=== PATIENT | female | born 1955 | race Caucasian/White ===

== ENCOUNTER 2017-08-17 20:54 | Emergency (ER) | payer MEDICARE, OTHER, MEDICAID, SELFPAY | END 2017-08-17 22:43 | disposition home or self-care (01) | PROVIDERS: Emergency Provider Emergency Medicine; Family Provider Family Medicine; PCP Family Medicine; Visit Provider Emergency Medicine | DX: S93.601A Unspecified sprain of right foot, initial encounter (principal); W19.XXXA Unspecified fall, initial encounter | CPT/HCPCS: 73562; 73610; 73630; 99283 ==

== ENCOUNTER 2017-11-15 23:34 | Emergency (ER) | payer MEDICARE, OTHER, MEDICAID, SELFPAY ==
[2017-11-15 23:44] VITALS: BP 146/70; PULSE 78; RESP 19; TEMP 36.7; O2SAT 98; BMI 44.6
[2017-11-15] MEDS: ALBUTEROL/IPRATROPIUM 3 ML AMPUL INH (23:50)
--- NOTE | 2017-11-15 23:50 | DI.RAD.S_ITS ---
PROCEDURE: XR CHEST 2V INDICATIONS: Shortness of breath, cough TECHNIQUE: 2 views of the chest were acquired. COMPARISON: [facility], , CHEST 1 VIEW, 04/04/2013, 10:54. FINDINGS: Surgical changes and devices: Nerve stimulator leads projecting to the lower thoracic spine. Lower cervical spine fusion. Lungs and pleura: No pleural effusions or pneumothorax. Lungs are clear. Mediastinum: Mediastinal contours are normal. Heart size is normal. Bones and chest wall: No suspicious bony abnormalities. Soft tissues appear unremarkable. IMPRESSION: No acute cardiopulmonary disease. Dictated by: Lee Schwartz M.D. on 11/16/2017 at 7:46 Approved by: Lee Schwartz M.D. on 11/16/2017 at 7:48
[2017-11-15 23:51] VITALS: PULSE 81; RESP 14; O2SAT 98
--- NOTE | 2017-11-15 23:54 | ED.SOB ---
HPI - SOB/Dyspnea General Chief Complaint: Shortness of Breath/Dyspnea Stated Complaint: TROUBLE BREATHING,COUGH SORE THROAT,FEVER Time Seen by Provider: 11/15/17 23:35 Source: patient and family Mode of arrival: ambulatory Limitations: no limitations History of Present Illness A 61-year-old female with history of asthma presents to the emergency department with a chief complaint of gradually worsening shortness of breath with wheeze over the course of the day. She has had a cough but denies any productive sputum. She did have a fever this morning of 102.6. She denies runny nose or sore throat. She has no chest pain, abdominal pain or vomiting. She denies any dysuria, frequency or urgency nor change of bowel habits. She has been using her albuterol at home MD Complaint: shortness of breath and cough Onset (ago): hour(s) Context: recent illness Severity: mild Consistency/Duration: constant Relieving factors: nothing Exacerbating factors: nothing Known history of: asthma Associated symptoms: denies other symptoms, fever and cough Related Data Home Medications Medication Instructions Recorded Confirmed levothyroxine 137 mcg PO Q DAY #0 01/03/11 montelukast [Singulair] 10 mg PO QDAY #0 01/03/11 albuterol sulfate [Proventil HFA] 2 puff INH Q6HP PRN #0 03/15/11 oxycodone-acetaminophen 1 tab PO QID #0 03/15/11 CHOLECALCIFEROL (VITAMIN D3) 2,000 iu PO Q DAY #0 03/29/11 (Vitamin D) atorvastatin [Lipitor] 20 mg PO QDAY #0 04/22/17 cyanocobalamin (vitamin B-12) 1,000 mcg PO QDAY #0 04/22/17 levocetirizine 5 mg PO QDAY #0 04/22/17 magnesium oxide 400 mg PO QDAY #0 04/22/17 multivitamin [Multiple Vitamins] 1 tab PO QDAY #0 04/22/17 omega 0-stp-vjb-fish oil [Fish Oil] 1,000 mg PO QDAY #0 04/22/17 quetiapine [Seroquel XR] 300 mg PO QDAY #0 04/22/17 desvenlafaxine succinate [Pristiq] #0 05/06/17 eszopiclone [Lunesta] #0 05/06/17 Previous Rx's Medication Instructions Recorded ketorolac 60 mg IM PRN PRN #4 syr 08/29/17 topiramate 100 mg tablet 100 mg PO .COMPLEX #60 tab 09/25/17 topiramate 200 mg tablet 200 mg PO BID #60 tab 09/25/17 topiramate [Topamax] 200 mg PO BID #60 tab 09/25/17 albuterol sulfate 2.5 mg INHALATION Q4-6H PRN #180 ml 11/16/17 prednisone See Label Instructions .ROUTE 11/16/17 .COMPLEX #30 tab Allergies Allergy/AdvReac Type Severity Reaction Status Date / Time butorphanol [BUTORPHANOL] Allergy Severe CARDIAC Verified 11/15/17 23:44 ARREST doxycycline [DOXYCYCLINE] Allergy Severe SEVERE Verified 11/15/17 23:44 RASH, SICK TO STOMACH hydromorphone [From DILAUDID] Allergy Severe SEVERE Verified 11/15/17 23:44 RASH, NAUSEA morphine [MORPHINE] Allergy Severe 'BRINGS ON Verified 11/15/17 23:44 MY BLACKOUTS' pregabalin [PREGABALIN] Allergy Severe MOOD SWINGS Verified 11/15/17 23:44 sumatriptan [SUMATRIPTAN] Allergy Severe MAKES Verified 11/15/17 23:44 MIGRAINES WORSE vortioxetine Allergy Severe SUICIDAL Verified 11/15/17 23:44 [From TRINTELLIX] adhesive tape [ADHESIVE TAPE] Allergy Intermediate RASH FROM Verified 11/15/17 23:44 ALL TAPES; TEGEDERM IS LESS SEVERE simvastatin [SIMVASTATIN] Allergy Intermediate RASH, SICK Verified 11/15/17 23:44 TO STOMACH amoxicillin [AMOXICILLIN] Allergy Unknown CHILDHOOD Verified 11/15/17 23:44 aspirin [ASPIRIN] Allergy Unknown Verified 11/15/17 23:44 erythromycin base Allergy Unknown UNKNOWN - Verified 11/15/17 23:44 [ERYTHROMYCIN BASE] CHILDHOOD Penicillins [PENICILLINS] Allergy Unknown UNKNOWN - Verified 11/15/17 23:44 CHILDHOOD codeine [CODEINE] AdvReac Severe GI UPSET, Verified 11/15/17 23:44 SEVERE HEADACHES vilazodone [From VIIBRYD] AdvReac Severe SEVERE Verified 11/15/17 23:44 DEPRESSION NSAIDS (Non-Steroidal AdvReac Intermediate upset Verified 11/15/17 23:44 Anti-Inflamma stomach [NSAIDS (NON-STEROIDAL ANTI-INFLAMMA] solifenacin [From VESICARE] AdvReac Mild UTIs Verified 11/15/17 23:44 Sulfa (Sulfonamide AdvReac Mild NAUSEA Verified 11/15/17 23:44 Antibiotics) [SULFA (SULFONAMIDE ANTIBIOTICS)] trimethoprim [TRIMETHOPRIM] AdvReac Mild NAUSEA Verified 11/15/17 23:44 Review of Systems Review of Systems All systems reviewed & are unremarkable except as noted in HPI and below Constitutional Denies chills, Denies fever(s), Denies lethargy and Denies weakness Eyes Denies change in vision, Denies eye discharge, Denies irritation and Denies loss of vision ENT Ears, Nose, Mouth, and Throat: Denies change in voice, Denies neck pain and Denies sore throat Cardiovascular Denies chest pain, Denies irregular heart rhythm, Denies lightheadedness, Denies palpitations, Reports dyspnea, Denies dyspnea on exertion and Denies orthopnea Respiratory Reports cough, Reports dyspnea, Denies dyspnea on exertion and Reports wheezing Gastrointestinal Gastrointestinal: Denies abdominal pain, Denies change in bowel habits, Denies diarrhea, Denies nausea and Denies vomiting Genitourinary Denies hematuria, Denies flank pain, Denies urinary incontinence and Denies urinary urgency Musculoskeletal Denies neck pain Integumentary/Breasts Denies pruritus, Denies erythema, Denies rash and Denies wounds Neurologic Denies confusion, Denies loss of vision and Denies weakness Psychiatric Denies anxiety, Denies confusion, Denies depression, Denies homicidal ideation and Denies suicidal ideation Endocrine Denies palpitations Hematologic/Lymphatic Denies easy bruising Allergic/Immunologic Reports wheezing PFSH Social History Smoking Status: Former smoker Exam Narrative Exam Narrative: Pleasant 61F in minimal distress Initial Vital Signs Initial Vital Signs: Vital Signs Temperature 98.0 F 11/15/17 23:44 Pulse Rate 78 11/15/17 23:44 Respiratory Rate 19 11/15/17 23:44 Blood Pressure 146/70 H 11/15/17 23:44 Pulse Oximetry 98 11/15/17 23:44 Const General: cooperative and well developed Nutritional Appearance: well nourished Orientation: alert, awake, oriented x3 and not confused HENMT Head: normocephalic and atraumatic Ears: external ears normal and TM's normal bilaterally Nose: external nose normal and No nasal discharge Face and sinus: sinuses nontender, face symmetric, no sinus tenderness and No dry mucous membranes Mouth: oral mucosae normal and moist mucous membranes Teeth and gingiva: dentition normal Throat: tonsils normal and uvula midline Eyes General: appearance normal, both eyes and all related structures Eyelids: eyelids normal Conjunctivae: conjunctivae normal Sclera: sclerae normal Pupils: PERRL EOM: EOM intact bilaterally Resp Effort & Inspection: normal respiratory effort, able to speak in complete sentences, no respiratory distress and no use of accessory muscles Auscultation: clear to auscultation bilaterally, no rales, no rhonchi and wheezes Cardio Rate: regular rate Rhythm: regular rhythm Heart Sounds: no click, no gallops, no murmurs and no rubs Pulses: normal peripheral pulses GI Inspection: non-distended Palpation: soft, no hepatosplenomegaly, No guarding, No pulsatile mass and No tender Auscultation: normal bowel sounds Back/Spine/Pelvis Back: No CVA tenderness Cervical Spine: cervical ROM normal and No pain with cervical ROM Thoracic/Lumbar Spine: thoracic and lumbar spine normal to inspection Neuro General: alert, oriented x3, gait normal and no focal motor deficits Speech: speech normal Course Orders Ordered: ED Orders 11/15/17 23:46 Consult to Respiratory Therapy Evaluate & Treat B Type Natriuretic Peptide Stat Basic Metabolic Panel Stat Complete Blood Count AUTO DIFF Stat Lactate (Lactic Acid) Stat Magnesium Stat Procalcitonin Stat Troponin with CK Cardiac Panel Stat EKG-12 Lead Stat 11/15/17 23:50 XR chest 2V Stat Discontinued Medications Albuterol/Ipratropium (Duoneb) 3 ml INH NOW ONE Stop: 11/15/17 23:49 Last Admin: 11/15/17 23:50 Dose: 3 ml Albuterol/Ipratropium (Duoneb) 3 ml INH NOW ONE Stop: 11/15/17 23:46 Last Admin: 11/16/17 00:01 Dose: 3 ml Methylprednisolone (Solu-Medrol 125 Mg Vial) 125 mg IV NOW ONE Stop: 11/15/17 23:46 Last Admin: 11/16/17 00:16 Dose: 125 mg Reevaluation(s) Reevaluation #1: Patient feeling much better after above-stated therapies Vital Signs - 8 hr 11/15/17 23:44 11/15/17 23:51 11/16/17 00:02 Temperature 98.0 F Pulse Rate 78 81 81 Respiratory Rate 19 14 Blood Pressure 146/70 H Blood Pressure [Left Arm] Pulse Oximetry 98 98 98 11/16/17 01:45 Temperature Pulse Rate 72 Respiratory Rate 20 Blood Pressure Blood Pressure [Left Arm] 136/70 H Pulse Oximetry 97 MDM - SOB/Dyspnea Differential Diagnosis Likely acute exacerbation of chronic obstructive airways disease, community acquired pneumonia, asthma with exacerbation and pulmonary embolism Medical Records Attestation: I reviewed the patient's medical records. Lab Data Attestation: I reviewed the patient's lab results. Result diagrams: 11/16/17 00:01 11/16/17 00:01 Lab Results 11/16/17 11/16/17 11/16/17 Range/Units 00:01 00:01 00:01 WBC 9.0 (4.5-11.0) X10^3/uL RBC 4.55 (4.0-5.2) X10^6/uL Hgb 13.8 (12.0-16.0) g/dL Hct 41.1 (36-46) % MCV 90.5 (80-100) fL MCH 30.3 (26-34) PG MCHC 33.5 (30-36) % RDW 14.2 (11.6-14.8) % Plt Count 230 (150-400) X10^3/uL Neut % (Auto) 62.9 (50-75) % Lymph % (Auto) 27.5 (25-40) % [place] % (Auto) 5.6 (3-14) % Eos % (Auto) 3.1 (2-4) % Baso % (Auto) 0.9 (0-2) % Neut # (Auto) 5700 (2355-4528) /uL Sodium 143 (137-145) mmol/L Potassium 3.6 (3.4-5.1) mmol/L Chloride 108 H (98-107) mmol/L Carbon Dioxide 24 (22-32) mmol/L BUN 10 (7-17) mg/dL Creatinine 0.80 (0.52-1.04) mg/dL Estimated GFR > 60.0 (>60) mL/min BUN/Creatinine Ratio 12.5 (6-22) Glucose 113 H (80-110) mg/dL Lactate (0.7-2.1) mmol/L Calcium 8.9 (8.4-10.2) mg/dL Magnesium 1.8 (1.6-2.3) mg/dL Total Creatine Kinase 27 L (30-135) U/L Troponin I < 0.012 (0.01-0.034) ng/mL B-Natriuretic Peptide < 100.0 (<100) Procalcitonin < 0.05 (<0.5) ng/mL 11/16/17 Range/Units 00:01 WBC (4.5-11.0) X10^3/uL RBC (4.0-5.2) X10^6/uL Hgb (12.0-16.0) g/dL Hct (36-46) % MCV (80-100) fL MCH (26-34) PG MCHC (30-36) % RDW (11.6-14.8) % Plt Count (150-400) X10^3/uL Neut % (Auto) (50-75) % Lymph % (Auto) (25-40) % [place] % (Auto) (3-14) % Eos % (Auto) (2-4) % Baso % (Auto) (0-2) % Neut # (Auto) (7457-7913) /uL Sodium (137-145) mmol/L Potassium (3.4-5.1) mmol/L Chloride (98-107) mmol/L Carbon Dioxide (22-32) mmol/L BUN (7-17) mg/dL Creatinine (0.52-1.04) mg/dL Estimated GFR (>60) mL/min BUN/Creatinine Ratio (6-22) Glucose (80-110) mg/dL Lactate 1.1 (0.7-2.1) mmol/L Calcium (8.4-10.2) mg/dL Magnesium (1.6-2.3) mg/dL Total Creatine Kinase (30-135) U/L Troponin I (0.01-0.034) ng/mL B-Natriuretic Peptide (<100) Procalcitonin (<0.5) ng/mL Imaging Data Chest x-ray: Radiologist's impression: No acute process MDM Narrative Medical decision making narrative: Patient shows tremendous improvement with steroids and bronchodilators. Patient has no white count, ongoing fever, or pneumonia on x-ray. She has had no sputum production. No antibiotics at this time. Discharge Plan Departure Patient Disposition: Home, Self-Care Clinical Impression: Asthma exacerbation Instructions: Asthma -- Adult Activity Restrictions/Additional Instructions: There is no evidence of an emergent or life threatening illness at this time, but follow up with your doctor in 1-2 days is recommended nonetheless to continue to rule out serious underlying causes of your symptoms. Please call the office for an appointment. Please return to the Emergency Department for any worsening or persistent symptoms. Please take medications as directed. Your prescriptions have been electronically transmitted to [facility] at your request Prescriptions: New prednisone 10 mg tablet See Label Instructions .ROUTE .COMPLEX Qty: 30 RF: 0 albuterol sulfate 2.5 mg /3 mL (0.083 %) solution for nebulization 2.5 mg INHALATION Q4-6H PRN (Reason: shortness of breath or wheezing) Qty: 180 RF: 0 No Action montelukast [Singulair] 10 MG tablet 10 mg PO QDAY Qty: 0 RF: 0 levothyroxine 137 MCG tablet 137 mcg PO Q DAY Qty: 0 RF: 0 albuterol sulfate [Proventil HFA] 90 MCG/PUFF HFA aerosol inhaler 2 puff INH Q6HP PRNQty: 0 RF: 0 oxycodone-acetaminophen 10 MG/325 MG tablet 1 tab PO QID Qty: 0 RF: 0 CHOLECALCIFEROL (VITAMIN D3) (Vitamin D) 2,000 iu PO Q DAY Qty: 0 RF: 0 quetiapine [Seroquel XR] 300 MG tablet extended release 24 hr 300 mg PO QDAY Qty: 0 RF: 0 atorvastatin [Lipitor] 20 MG tablet 20 mg PO QDAY Qty: 0 RF: 0 levocetirizine 5 MG tablet 5 mg PO QDAY Qty: 0 RF: 0 multivitamin [Multiple Vitamins] 1 EACH tablet 1 tab PO QDAY Qty: 0 RF: 0 cyanocobalamin (vitamin B-12) 1,000 MCG tablet extended release 1,000 mcg PO QDAY Qty: 0 RF: 0 magnesium oxide 400 MG tablet 400 mg PO QDAY Qty: 0 RF: 0 omega 9-oev-hbm-fish oil [Fish Oil] 1,000 MG capsule 1,000 mg PO QDAY Qty: 0 RF: 0 eszopiclone [Lunesta] 1 MG tablet Qty: 0 RF: 0 desvenlafaxine succinate [Pristiq] 50 mg Tablet Extended Release 24 Hr Qty: 0 RF: 0 ketorolac 60 MG/2 ML syringe 60 mg IM PRN PRNQty: 4 RF: 11 topiramate [Topamax] 200 mg tablet 200 mg PO BID Qty: 60 RF: 0 topiramate 200 mg tablet 200 mg PO BID Qty: 60 RF: 11 topiramate 100 mg tablet 100 mg PO .COMPLEX Qty: 60 RF: 11 Referrals: Aashish Aponte MD [Primary Care Provider] -
[2017-11-16] MEDS: ALBUTEROL/IPRATROPIUM 3 ML AMPUL INH (00:01)
[2017-11-16 00:02] VITALS: PULSE 81; O2SAT 98
[2017-11-16 00:16] LABS: Add Manual Diff / Slide Review NO; Basophils Percent Auto 0.9 % (0-2); Eosinophils Percent Auto 3.1 % (2-4); Hematocrit 41.1 % (36-46); Hemoglobin 13.8 g/dL (12.0-16.0); Lymphocytes Percent Auto 27.5 % (25-40); Mean Corpuscular HGB Conc 33.5 % (30-36); Mean Corpuscular Hemoglobin 30.3 PG (26-34); Mean Corpuscular Volume 90.5 fL (80-100); Monocytes Percent Auto 5.6 % (3-14); Neutrophils Absolute Auto 5700 /uL (3000-5900); Neutrophils Percent Auto 62.9 % (50-75); Platelet Count 230 X10^3/uL (150-400); Red Blood Cell Count 4.55 X10^6/uL (4.0-5.2); Red Cell Distribution Width 14.2 % (11.6-14.8)
[2017-11-16] MEDS: methylPREDNISolone 125 MG/2 ML VIAL IV (00:16)
[2017-11-16 00:21] LABS: Lactate (Lactic Acid) 1.1 mmol/L (0.7-2.1)
[2017-11-16 00:23] LABS: BUN Creatinine Ratio 12.5 (6-22); Blood Urea Nitrogen 10 mg/dL (7-17); Calcium 8.9 mg/dL (8.4-10.2); Carbon Dioxide 24 mmol/L (22-32); Chloride 108 mmol/L (98-107); Creatine Kinase 27 U/L (30-135); Estimated Glomerular Filt Rate > 60.0 mL/min (>60); Glucose 113 mg/dL (80-110); HEMOLYSIS < 15 (0-50); Magnesium 1.8 mg/dL (1.6-2.3); Potassium 3.6 mmol/L (3.4-5.1); Sodium 143 mmol/L (137-145)
[2017-11-16 00:36] LABS: Troponin I < 0.012 ng/mL (0.01-0.034)
[2017-11-16 00:40] LABS: Procalcitonin < 0.05 ng/mL (<0.5)
[2017-11-16 00:47] LABS: B Type Natriuretic Peptide < 100.0 (<100)
[2017-11-16 01:45] VITALS: BP 136/70; PULSE 72; RESP 20; O2SAT 97
[2017-11-16 02:16] VITALS: BP 130/73; PULSE 90; RESP 18; O2SAT 95
== END 2017-11-16 02:17 | disposition home or self-care (01) ==
PROVIDERS: Emergency Provider Emergency Medicine; Family Provider Family Medicine; PCP Family Medicine
DX: J45.901 Unspecified asthma with (acute) exacerbation (principal)
CPT/HCPCS: 36415; 36591; 71046; 80048; 82550; 82553; 83605; 83735; 83880; 84145; 84484; 85025; 87040; 93005; 94150; 94640; 96374; 99283; 99285; J2930

== ENCOUNTER 2018-01-09 22:45 | Emergency (ER) | payer MEDICARE, OTHER, MEDICAID, SELFPAY ==
[2018-01-09 22:55] VITALS: BP 134/87; PULSE 63; RESP 18; TEMP 36.5; O2SAT 98
--- NOTE | 2018-01-09 23:03 | PC.NURSE ---
Pt reports has a black out yesterday and found herself on the floor and has a L knee pain. 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 Pain in medial aspect of L knee. No obvious deformity noted. No hx of L knee injury. Has been using ice pack for comfort and hurts to bear wt. Pt has been taking Oxycodone 10/325 QID and has been helping with pain.
--- NOTE | 2018-01-09 23:05 | DI.RAD.S_ITS ---
PROCEDURE: XR KNEE LT 3V INDICATIONS: Left medial aspect pain, fall-found herself on the floor TECHNIQUE: 3 views of the knee were acquired. COMPARISON: [facility], , KNEE 3V LEFT, 05/20/2015, 22:38. FINDINGS: Bones: No fractures or dislocations. No suspicious bony lesions. Mild to moderate tricompartmental osteoarthritis. Soft tissues: No joint effusion. No suspicious soft tissue calcifications. IMPRESSION: No fracture. No acute osseous lesion. If symptoms and/or clinical suspicion for pathology persists, further assessment with repeat radiographs (7-10 days) or advanced imaging (e.g. CT, MRI or bone scan) may be helpful. Dictated by: June Montes De Oca MD, PhD on 01/10/2018 at 8:01 Approved by: June Montes De Oca MD, PhD on 01/10/2018 at 8:01
--- NOTE | 2018-01-09 23:55 | ED_ITS ---
HPI - Extremity Injury (Lower) General Chief Complaint: Extremity Injury, Lower Stated Complaint: LEFT KNEE PAIN Time Seen by Provider: 01/09/18 23:21 Source: patient Mode of arrival: ambulatory Limitations: no limitations History of Present Illness HPI Narrative: The patient states that she has had periods of ?blacking out? for a long time. Yesterday, she had an episode, and does not remember the fall , but states that she somehow injured her left knee in the process. She states that she got her chiropractor to come over and adjust her knee, which seemed to help for a little bit, but then the knee started to hurt again. She states the pain is mainly in the medial side and she has noticed a little bit of ?puffiness ?. The patient denies any other injuries. She states she has no underlying problems with this knee. MD complaint: knee injury Onset (ago): hour(s) (About 30) Injury: Left: knee Type of Injury: unknown Place: home Severity: moderate Relieving factors: nothing Exacerbating factors: weight bearing (Patient states she is able to move the knee to nearly full range of motion, but that bearing weight hurts.) Context: fall (See above.) Associated symptoms: able to partially bear weight Other symptoms: loss of consciousness (Chronic problem) Treatments prior to arrival: other (Patient states she took 2 of her Percocet, which haven't touched it.) Related Data Home Medications Medication Instructions Recorded Confirmed levothyroxine 137 mcg PO Q DAY #0 01/03/11 11/19/17 montelukast [Singulair] 10 mg PO QDAY #0 01/03/11 11/19/17 albuterol sulfate [Proventil HFA] 2 puff INH Q6HP PRN #0 03/15/11 11/19/17 oxycodone-acetaminophen 1 tab PO QID #0 03/15/11 11/19/17 CHOLECALCIFEROL (VITAMIN D3) 2,000 iu PO Q DAY #0 03/29/11 11/19/17 (Vitamin D) atorvastatin [Lipitor] 20 mg PO QDAY #0 04/22/17 11/19/17 cyanocobalamin (vitamin B-12) 1,000 mcg PO QDAY #0 04/22/17 11/19/17 levocetirizine 5 mg PO QDAY #0 04/22/17 11/19/17 magnesium oxide 400 mg PO QDAY #0 04/22/17 11/19/17 multivitamin [Multiple Vitamins] 1 tab PO QDAY #0 04/22/17 11/19/17 omega 0-gvg-ejk-fish oil [Fish Oil] 1,000 mg PO QDAY #0 04/22/17 11/19/17 quetiapine [Seroquel XR] 300 mg PO QDAY #0 04/22/17 11/19/17 desvenlafaxine succinate [Pristiq] #0 05/06/17 11/19/17 eszopiclone [Lunesta] #0 05/06/17 11/19/17 Previous Rx's Medication Instructions Recorded ketorolac 60 mg IM PRN PRN #4 syr 08/29/17 albuterol sulfate 2.5 mg INHALATION Q4-6H PRN #180 ml 11/16/17 prednisone See Label Instructions .ROUTE 11/16/17 .COMPLEX #30 tab topiramate 100 mg tablet 100 mg PO .COMPLEX #150 tab 11/19/17 Allergies Allergy/AdvReac Type Severity Reaction Status Date / Time butorphanol [BUTORPHANOL] Allergy Severe CARDIAC Verified 01/09/18 23:01 ARREST doxycycline [DOXYCYCLINE] Allergy Severe SEVERE Verified 01/09/18 23:01 RASH, SICK TO STOMACH hydromorphone [From DILAUDID] Allergy Severe SEVERE Verified 01/09/18 23:01 RASH, NAUSEA morphine [MORPHINE] Allergy Severe 'BRINGS ON Verified 01/09/18 23:01 MY BLACKOUTS' pregabalin [PREGABALIN] Allergy Severe MOOD SWINGS Verified 01/09/18 23:01 sumatriptan [SUMATRIPTAN] Allergy Severe MAKES Verified 01/09/18 23:01 MIGRAINES WORSE vortioxetine Allergy Severe SUICIDAL Verified 01/09/18 23:01 [From TRINTELLIX] adhesive tape [ADHESIVE TAPE] Allergy Intermediate RASH FROM Verified 01/09/18 23:01 ALL TAPES; TEGEDERM IS LESS SEVERE simvastatin [SIMVASTATIN] Allergy Intermediate RASH, SICK Verified 01/09/18 23: 01 TO STOMACH amoxicillin [AMOXICILLIN] Allergy Unknown CHILDHOOD Verified 01/09/18 23:01 aspirin [ASPIRIN] Allergy Unknown Verified 01/09/18 23:01 erythromycin base Allergy Unknown UNKNOWN - Verified 01/09/18 23:01 [ERYTHROMYCIN BASE] CHILDHOOD Penicillins [PENICILLINS] Allergy Unknown UNKNOWN - Verified 01/09/18 23:01 CHILDHOOD codeine [CODEINE] AdvReac Severe GI UPSET, Verified 01/09/18 23:01 SEVERE HEADACHES vilazodone [From VIIBRYD] AdvReac Severe SEVERE Verified 01/09/18 23:01 DEPRESSION NSAIDS (Non-Steroidal AdvReac Intermediate upset Verified 01/09/18 23:01 Anti-Inflamma stomach [NSAIDS (NON-STEROIDAL ANTI-INFLAMMA] solifenacin [From VESICARE] AdvReac Mild UTIs Verified 01/09/18 23:01 Sulfa (Sulfonamide AdvReac Mild NAUSEA Verified 01/09/18 23:01 Antibiotics) [SULFA (SULFONAMIDE ANTIBIOTICS)] trimethoprim [TRIMETHOPRIM] AdvReac Mild NAUSEA Verified 01/09/18 23:01 Review of Systems Review of Systems All systems reviewed & are unremarkable except as noted in HPI and below Constitutional Denies chills, Denies fever(s), Denies lethargy and Denies weakness Eyes Denies change in vision, Denies eye discharge, Denies irritation and Denies loss of vision ENT Ears, Nose, Mouth, and Throat: Denies change in voice, Denies neck pain and Denies sore throat Cardiovascular Denies chest pain, Denies irregular heart rhythm, Denies lightheadedness, Denies palpitations, Denies dyspnea, Denies dyspnea on exertion and Denies orthopnea Respiratory Denies cough, Denies dyspnea, Denies dyspnea on exertion and Denies wheezing Gastrointestinal Gastrointestinal: Denies abdominal pain, Denies change in bowel habits, Denies diarrhea, Denies nausea and Denies vomiting Genitourinary Denies hematuria, Denies flank pain, Denies urinary incontinence and Denies urinary urgency Musculoskeletal Reports joint swelling and Denies neck pain Integumentary/Breasts Denies pruritus, Denies erythema, Denies rash and Denies wounds Neurologic Denies confusion, Denies loss of vision and Denies weakness Psychiatric Denies anxiety, Denies confusion, Denies depression, Denies homicidal ideation and Denies suicidal ideation Endocrine Denies palpitations Hematologic/Lymphatic Denies easy bruising Allergic/Immunologic Denies wheezing [facility] Medical History COPD (chronic obstructive pulmonary disease) (Acute) Hyperlipemia (Acute) Surgical History History of knee replacement procedure of right knee (Acute) Social History Smoking Status: Former smoker Exam Initial Vital Signs Initial Vital Signs: Vital Signs Temperature 97.7 F 01/09/18 22:55 Pulse Rate 63 01/09/18 22:55 Respiratory Rate 18 01/09/18 22:55 Blood Pressure 134/87 H 01/09/18 22:55 Pulse Oximetry 98 01/09/18 22:55 Const General: cooperative and well developed Nutritional Appearance: well nourished Orientation: alert, awake, oriented x3 and not confused HENMT Head: normocephalic and atraumatic Ears: external ears normal Nose: external nose normal and No nasal discharge Face and sinus: sinuses nontender, face symmetric, no sinus tenderness and No dry mucous membranes Mouth: oral mucosae normal and moist mucous membranes Teeth and gingiva: dentition normal Throat: tonsils normal and uvula midline Eyes General: appearance normal, both eyes and all related structures Eyelids: eyelids normal Conjunctivae: conjunctivae normal Sclera: sclerae normal Pupils: PERRL EOM: EOM intact bilaterally Neck Neck: normal visual inspection, trachea midline, No lymphadenopathy, No midline deformity and No JVD Lymphatic: No lymphedema Chest Chest: normal inspection of the chest Resp Effort & Inspection: normal respiratory effort, able to speak in complete sentences, no respiratory distress and no use of accessory muscles Auscultation: clear to auscultation bilaterally, no rales, no rhonchi and no wheezes Cardio Rate: regular rate Rhythm: regular rhythm Heart Sounds: no click, no gallops, no murmurs and no rubs Pulses: normal peripheral pulses GI Inspection: non-distended Palpation: soft, no hepatosplenomegaly, No guarding, No pulsatile mass and No tender Auscultation: normal bowel sounds Back/Spine/Pelvis Back: No CVA tenderness Cervical Spine: cervical ROM normal and No pain with cervical ROM Thoracic/Lumbar Spine: thoracic and lumbar spine normal to inspection Skin General: no rashes or lesions noted, No jaundice and No petechiae Neuro General: alert, oriented x3, gait normal and no focal motor deficits Speech: speech normal Extrem General: full ROM, no clubbing, cyanosis or edema, no pedal edema, no calf tenderness and edema (Mild, left medial knee.) Psych Appearance: well kempt Mental Status: mental status grossly normal Attitude: cooperative Thought Content: normal and suicidality Judgment: judgment good Course Hospital Course: Patient was given a dose of Toradol and sent for an x-ray of her left knee. This was found to be negative. No emergent condition identified. Orders Ordered: Discontinued Medications Ketorolac Tromethamine (Toradol) 60 mg IM NOW ONE Stop: 01/10/18 00:10 Last Admin: 01/10/18 00:22 Dose: 60 mg Vital Signs - 8 hr 01/10/18 01:03 Pulse Rate 81 Respiratory Rate 18 Blood Pressure 118/67 Pulse Oximetry 96 MDM - Extremity Injury (Lower) Medical Records Attestation: I reviewed the patient's medical records. Imaging Data Left knee x-ray series: Attestation: I personally reviewed and interpreted this imaging study as follows: My impression: Negative Radiologist's impression: PROCEDURE: XR KNEE LT 3V INDICATIONS: Left medial aspect pain, fall-found herself on the floor TECHNIQUE: 3 views of the knee were acquired. COMPARISON: [facility], , KNEE 3V LEFT, 05/20/2015, 22:38. FINDINGS: Bones: No fractures or dislocations. No suspicious bony lesions. Mild to moderate tricompartmental osteoarthritis. Soft tissues: No joint effusion. No suspicious soft tissue calcifications. IMPRESSION: No fracture. No acute osseous lesion. If symptoms and/or clinical suspicion for pathology persists, further assessment with repeat radiographs (7-10 days) or advanced imaging (e.g. CT, MRI or bone scan) may be helpful. Dictated by: June Montes De Oca MD, PhD on 01/10/2018 at 8:01 Approved by: June Montes De Oca MD, PhD on 01/10/2018 at 8:01 Discharge Plan Departure Patient Disposition: Home Clinical Impression: Left knee injury Discharge Date/Time: 01/10/18 00:43 Interventions: ED Discharge Assessment Last Done: 01/10/18 01:03 Instructions: DI for Knee Sprain Activity Restrictions/Additional Instructions: Your x-ray series looks good. Prescriptions: No Action montelukast [Singulair] 10 MG tablet 10 mg PO QDAY Qty: 0 RF: 0 levothyroxine 137 MCG tablet 137 mcg PO Q DAY Qty: 0 RF: 0 albuterol sulfate [Proventil HFA] 90 MCG/PUFF HFA aerosol inhaler 2 puff INH Q6HP PRNQty: 0 RF: 0 oxycodone-acetaminophen 10 MG/325 MG tablet 1 tab PO QID Qty: 0 RF: 0 CHOLECALCIFEROL (VITAMIN D3) (Vitamin D) 2,000 iu PO Q DAY Qty: 0 RF: 0 quetiapine [Seroquel XR] 300 MG tablet extended release 24 hr 300 mg PO QDAY Qty: 0 RF: 0 atorvastatin [Lipitor] 20 MG tablet 20 mg PO QDAY Qty: 0 RF: 0 levocetirizine 5 MG tablet 5 mg PO QDAY Qty: 0 RF: 0 multivitamin [Multiple Vitamins] 1 EACH tablet 1 tab PO QDAY Qty: 0 RF: 0 cyanocobalamin (vitamin B-12) 1,000 MCG tablet extended release 1,000 mcg PO QDAY Qty: 0 RF: 0 magnesium oxide 400 MG tablet 400 mg PO QDAY Qty: 0 RF: 0 omega 6-fvx-boi-fish oil [Fish Oil] 1,000 MG capsule 1,000 mg PO QDAY Qty: 0 RF: 0 eszopiclone [Lunesta] 1 MG tablet Qty: 0 RF: 0 desvenlafaxine succinate [Pristiq] 50 mg Tablet Extended Release 24 Hr Qty: 0 RF: 0 ketorolac 60 MG/2 ML syringe 60 mg IM PRN PRNQty: 4 RF: 11 prednisone 10 mg tablet See Label Instructions .ROUTE .COMPLEX Qty: 30 RF: 0 albuterol sulfate 2.5 mg /3 mL (0.083 %) solution for nebulization 2.5 mg INHALATION Q4-6H PRN (Reason: shortness of breath or wheezing) Qty: 180 RF: 0 topiramate 100 mg tablet 100 mg PO .COMPLEX Qty: 150 RF: 11 Referrals: Aashish Aponte MD [Primary Care Provider] - (Please follow up in 2 weeks if there is no improvement in symptoms.)
[2018-01-10] MEDS: KETOROLAC 60 MG/2 ML VIAL IM (00:22)
[2018-01-10 01:03] VITALS: BP 118/67; PULSE 81; RESP 18; O2SAT 96
== END 2018-01-10 00:43 | disposition home or self-care (01) ==
PROVIDERS: Emergency Provider Emergency Medicine; Family Provider Family Medicine; PCP Family Medicine
DX: S89.92XA Unspecified injury of left lower leg, initial encounter (principal); W19.XXXA Unspecified fall, initial encounter
CPT/HCPCS: 73562; 96372; 99282; 99283; J1885

== ENCOUNTER 2018-02-17 00:54 | Emergency (ER) | payer MEDICARE, OTHER, MEDICAID, SELFPAY ==
[2018-02-17 01:04] VITALS: BP 123/80; PULSE 118; RESP 18; TEMP 36.2; O2SAT 98; BMI 43.6
--- NOTE | 2018-02-17 01:07 | DI.RAD.S_ITS ---
PROCEDURE: XR KNEE LT 3V INDICATIONS: L knee pain with popping TECHNIQUE: 3 views of the knee were acquired. COMPARISON: [facility], , XR KNEE LT 3V, 01/09/2018, 22:46. FINDINGS: Bones: No fractures or dislocations. No suspicious bony lesions. The there is moderate tricompartment osteoarthritis. No significant patellar subluxation. Soft tissues: No joint effusion. No suspicious soft tissue calcifications. IMPRESSION: No acute left knee fracture or dislocation. Moderate tricompartmental osteoarthritis. Dictated by: Tyrell Sotelo M.D. on 02/17/2018 at 8:20 Approved by: Tyrell Sotelo M.D. on 02/17/2018 at 8:20
--- NOTE | 2018-02-17 01:18 | ED_ITS ---
HPI - Extremity Injury (Lower) General Chief Complaint: Extremity Injury, Lower Stated Complaint: left knee injured at home today Time Seen by Provider: 02/17/18 01:01 Source: patient Mode of arrival: ambulatory Limitations: no limitations History of Present Illness HPI Narrative: 62-year-old female history of migraines presents with a chief complaint of a left knee injury this evening. She was getting up from a seated position when she felt a pop in her left knee. She states her pain is worse with motion and improves with rest. She states it feels unsteady and unstable while ambulating. She denies other injury. She is otherwise well and free of complaint. She took a few Percocet 10 mg tablets home with minimal relief. She denies any direct trauma MD complaint: knee injury Onset (ago): hour(s) Place: home Severity: moderate Relieving factors: rest Exacerbating factors: weight bearing and movement Context: other Associated symptoms: snap/pop sensation Other symptoms: none Treatments prior to arrival: bandage Related Data Home Medications Medication Instructions Recorded Confirmed levothyroxine 137 mcg PO Q DAY #0 01/03/11 11/19/17 montelukast [Singulair] 10 mg PO QDAY #0 01/03/11 11/19/17 albuterol sulfate [Proventil HFA] 2 puff INH Q6HP PRN #0 03/15/11 11/19/17 oxycodone-acetaminophen 1 tab PO QID #0 03/15/11 11/19/17 CHOLECALCIFEROL (VITAMIN D3) 2,000 iu PO Q DAY #0 03/29/11 11/19/17 (Vitamin D) atorvastatin [Lipitor] 20 mg PO QDAY #0 04/22/17 11/19/17 cyanocobalamin (vitamin B-12) 1,000 mcg PO QDAY #0 04/22/17 11/19/17 levocetirizine 5 mg PO QDAY #0 04/22/17 11/19/17 magnesium oxide 400 mg PO QDAY #0 04/22/17 11/19/17 multivitamin [Multiple Vitamins] 1 tab PO QDAY #0 04/22/17 11/19/17 omega 9-lhf-ofy-fish oil [Fish Oil] 1,000 mg PO QDAY #0 04/22/17 11/19/17 quetiapine [Seroquel XR] 300 mg PO QDAY #0 04/22/17 11/19/17 desvenlafaxine succinate [Pristiq] #0 05/06/17 11/19/17 eszopiclone [Lunesta] #0 05/06/17 11/19/17 Previous Rx's Medication Instructions Recorded ketorolac 60 mg IM PRN PRN #4 syr 08/29/17 albuterol sulfate 2.5 mg INHALATION Q4-6H PRN #180 ml 11/16/17 prednisone See Label Instructions .ROUTE 11/16/17 .COMPLEX #30 tab topiramate 100 mg tablet 100 mg PO .COMPLEX #150 tab 11/19/17 Allergies Allergy/AdvReac Type Severity Reaction Status Date / Time butorphanol [BUTORPHANOL] Allergy Severe CARDIAC Verified 01/09/18 23:01 ARREST doxycycline [DOXYCYCLINE] Allergy Severe SEVERE Verified 01/09/18 23:01 RASH, SICK TO STOMACH hydromorphone [From DILAUDID] Allergy Severe SEVERE Verified 01/09/18 23:01 RASH, NAUSEA morphine [MORPHINE] Allergy Severe 'BRINGS ON Verified 01/09/18 23:01 MY BLACKOUTS' pregabalin [PREGABALIN] Allergy Severe MOOD SWINGS Verified 01/09/18 23:01 sumatriptan [SUMATRIPTAN] Allergy Severe MAKES Verified 01/09/18 23:01 MIGRAINES WORSE vortioxetine Allergy Severe SUICIDAL Verified 01/09/18 23:01 [From TRINTELLIX] adhesive tape [ADHESIVE TAPE] Allergy Intermediate RASH FROM Verified 01/09/18 23:01 ALL TAPES; TEGEDERM IS LESS SEVERE simvastatin [SIMVASTATIN] Allergy Intermediate RASH, SICK Verified 01/09/18 23: 01 TO STOMACH amoxicillin [AMOXICILLIN] Allergy Unknown CHILDHOOD Verified 01/09/18 23:01 aspirin [ASPIRIN] Allergy Unknown Verified 01/09/18 23:01 erythromycin base Allergy Unknown UNKNOWN - Verified 01/09/18 23:01 [ERYTHROMYCIN BASE] CHILDHOOD Penicillins [PENICILLINS] Allergy Unknown UNKNOWN - Verified 01/09/18 23:01 CHILDHOOD codeine [CODEINE] AdvReac Severe GI UPSET, Verified 01/09/18 23:01 SEVERE HEADACHES vilazodone [From VIIBRYD] AdvReac Severe SEVERE Verified 01/09/18 23:01 DEPRESSION NSAIDS (Non-Steroidal AdvReac Intermediate upset Verified 01/09/18 23:01 Anti-Inflamma stomach [NSAIDS (NON-STEROIDAL ANTI-INFLAMMA] solifenacin [From VESICARE] AdvReac Mild UTIs Verified 01/09/18 23:01 Sulfa (Sulfonamide AdvReac Mild NAUSEA Verified 01/09/18 23:01 Antibiotics) [SULFA (SULFONAMIDE ANTIBIOTICS)] trimethoprim [TRIMETHOPRIM] AdvReac Mild NAUSEA Verified 01/09/18 23:01 Review of Systems Review of Systems All systems reviewed & are unremarkable except as noted in HPI and below Constitutional Denies chills, Denies fever(s), Denies lethargy and Denies weakness Eyes Denies change in vision, Denies eye discharge, Denies irritation and Denies loss of vision ENT Ears, Nose, Mouth, and Throat: Denies change in voice, Denies neck pain and Denies sore throat Cardiovascular Denies chest pain, Denies irregular heart rhythm, Denies lightheadedness, Denies palpitations, Denies dyspnea, Denies dyspnea on exertion and Denies orthopnea Respiratory Denies cough, Denies dyspnea, Denies dyspnea on exertion and Denies wheezing Gastrointestinal Gastrointestinal: Denies abdominal pain, Denies change in bowel habits, Denies diarrhea, Denies nausea and Denies vomiting Genitourinary Denies hematuria, Denies flank pain, Denies urinary incontinence and Denies urinary urgency Musculoskeletal Reports limited range of motion and Denies neck pain Integumentary/Breasts Denies pruritus, Denies erythema, Denies rash and Denies wounds Neurologic Denies confusion, Denies loss of vision and Denies weakness Psychiatric Denies anxiety, Denies confusion, Denies depression, Denies homicidal ideation and Denies suicidal ideation Endocrine Denies palpitations Hematologic/Lymphatic Denies easy bruising Allergic/Immunologic Denies wheezing PFSH Medical History COPD (chronic obstructive pulmonary disease) (Acute) Hyperlipemia (Acute) Surgical History History of knee replacement procedure of right knee (Acute) Social History Smoking Status: Former smoker Exam Narrative Exam Narrative: 62-year-old female in pain, clutching her left knee GEN: AOx3 and in mild distress EYES: Pupils are equal, round, and reactive to light and accommodation. Extraoccular muscles are intact bilaterally. There is no subconjunctival hemorrhage or exudate. CHEST: Lungs are clear to auscultation bilaterally and free of wheezes, rales, or rhonchi. Heart rate is regular rhythm, there are no murmurs, clicks, rubs, or gallops. There is no chest wall tenderness. ABD: Abdomen is soft and nontender. There is no guarding or rebound. Bowel sounds are normal in all 4 quadrants. There is no mass or organomegaly. EXT: patient has full but painful range of motion of her left knee. She has tenderness to palpation along the medial joint line without any obvious effusion. This is isolated, closed and neurovascularly intact. There is no obvious ligamentous instability. Stefania's test elicits significant pain at the right medial joint line suggestive of possible meniscal injury SKIN: Warm, pink, and dry. No erythema or rash Initial Vital Signs Initial Vital Signs: Vital Signs Temperature 97.1 F L 02/17/18 01:04 Pulse Rate 118 H 02/17/18 01:04 Respiratory Rate 18 02/17/18 01:04 Blood Pressure 123/80 02/17/18 01:04 Pulse Oximetry 98 02/17/18 01:04 Procedures Orthopedic Splinting/Casting Injury #1: Side: left Lower Extremity Injury Location: knee Lower Extremity Immobilizer: knee immobilizer Course Orders Ordered: ED Orders 02/17/18 01:07 XR knee LT 3V Stat Vital Signs - 8 hr 02/17/18 01:04 Temperature 97.1 F L Pulse Rate 118 H Respiratory Rate 18 Blood Pressure 123/80 Pulse Oximetry 98 MDM - Extremity Injury (Lower) Differential Diagnosis Likely acute internal derangement of knee and fracture of femur Medical Records Attestation: I reviewed the patient's medical records. Lab Data Attestation: I reviewed the patient's lab results. Imaging Data Left knee x-ray series: Attestation: I personally reviewed and interpreted this imaging study as follows: My impression: no acute bony process, unchanged from x-ray January 09 Discharge Plan Departure Patient Disposition: Home Clinical Impression: Left knee injury Instructions: DI for Knee Pain Activity Restrictions/Additional Instructions: *You have been diagnosed with [ left knee pain, suspect meniscal injury] *What to do: *Continue to take medications as directed *Follow up with your primary care provider or orthopedist in 2-3 days, call for an appointment. Let them know you were seen in the Emergency Department and that we ask that you be seen in follow up *Return to ER if you should have any new, worsening or concerning symptoms Prescriptions: No Action montelukast [Singulair] 10 MG tablet 10 mg PO QDAY Qty: 0 RF: 0 levothyroxine 137 MCG tablet 137 mcg PO Q DAY Qty: 0 RF: 0 albuterol sulfate [Proventil HFA] 90 MCG/PUFF HFA aerosol inhaler 2 puff INH Q6HP PRNQty: 0 RF: 0 oxycodone-acetaminophen 10 MG/325 MG tablet 1 tab PO QID Qty: 0 RF: 0 CHOLECALCIFEROL (VITAMIN D3) (Vitamin D) 2,000 iu PO Q DAY Qty: 0 RF: 0 quetiapine [Seroquel XR] 300 MG tablet extended release 24 hr 300 mg PO QDAY Qty: 0 RF: 0 atorvastatin [Lipitor] 20 MG tablet 20 mg PO QDAY Qty: 0 RF: 0 levocetirizine 5 MG tablet 5 mg PO QDAY Qty: 0 RF: 0 multivitamin [Multiple Vitamins] 1 EACH tablet 1 tab PO QDAY Qty: 0 RF: 0 cyanocobalamin (vitamin B-12) 1,000 MCG tablet extended release 1,000 mcg PO QDAY Qty: 0 RF: 0 magnesium oxide 400 MG tablet 400 mg PO QDAY Qty: 0 RF: 0 omega 9-zmu-wkd-fish oil [Fish Oil] 1,000 MG capsule 1,000 mg PO QDAY Qty: 0 RF: 0 eszopiclone [Lunesta] 1 MG tablet Qty: 0 RF: 0 desvenlafaxine succinate [Pristiq] 50 mg Tablet Extended Release 24 Hr Qty: 0 RF: 0 ketorolac 60 MG/2 ML syringe 60 mg IM PRN PRNQty: 4 RF: 11 prednisone 10 mg tablet See Label Instructions .ROUTE .COMPLEX Qty: 30 RF: 0 albuterol sulfate 2.5 mg /3 mL (0.083 %) solution for nebulization 2.5 mg INHALATION Q4-6H PRN (Reason: shortness of breath or wheezing) Qty: 180 RF: 0 topiramate 100 mg tablet 100 mg PO .COMPLEX Qty: 150 RF: 11 Referrals: Aashish Aponte MD [Primary Care Provider] - George Danielle MD [Physician] -
== END 2018-02-17 02:00 | disposition home or self-care (01) ==
PROVIDERS: Emergency Provider Emergency Medicine; Family Provider Family Medicine; PCP Family Medicine
DX: S89.92XA Unspecified injury of left lower leg, initial encounter (principal); X50.9XXA Other and unspecified overexertion or strenuous movements or postures, initial encounter
CPT/HCPCS: 73562; 99283

== ENCOUNTER → 2018-03-26 | Outpatient (CLI) | payer MEDICARE, OTHER, MEDICAID, SELFPAY | PROVIDERS: PCP Family Medicine; Visit Provider Orthopaedic Surgery | DX: M23.92 Unspecified internal derangement of left knee (principal); Z53.9 Procedure and treatment not carried out, unspecified reason ==

== ENCOUNTER 2018-03-29 05:03 | Emergency (ER) | payer MEDICARE, OTHER, MEDICAID, SELFPAY ==
[2018-03-29 05:16] VITALS: BP 122/78; PULSE 97; RESP 18; TEMP 36.6; O2SAT 99; BMI 44.1
--- NOTE | 2018-03-29 05:38 | ED_ITS ---
HPI - Extremity Problem General Chief complaint: Extremity Problem,Nontraumatic Stated complaint: right arm/back pain cant move arm Time Seen by Provider: 03/29/18 05:19 Source: patient Mode of arrival: ambulatory Limitations: no limitations History of Present Illness HPI Narrative: Patient is a 62-year-old female who presents with right shoulder and arm pain ongoing for the last 2 weeks. He denies numbness or tingling or weakness. She says now it is hurting up into her neck and her head. She has been using a heating pad. She is a chronic pain patient she has appointment with her pain specialist delbert [facility] 04/07/2018. She is trying to hold out until then. She has been taking her Percocet without any relief. She has also been taking 2 ibuprofen every 4 hr also without any relief. Her last dose was at 9:00 p.m.. She has no chest pain no shortness of breath no headache. It hurts every time she moves it and now tries to turn her neck. His MD Complaint: extremity pain Onset (ago): week(s) (2) Pain Consistency: constant Location: right Quality: stabbing and sharp Radiation: distal Relieving factors: nothing Exacerbating factors: nothing Associated symptoms: denies other symptoms Related Data Home Medications Medication Instructions Recorded Confirmed levothyroxine 137 mcg PO Q DAY #0 01/03/11 11/19/17 montelukast [Singulair] 10 mg PO QDAY #0 01/03/11 11/19/17 albuterol sulfate [Proventil HFA] 2 puff INH Q6HP PRN #0 03/15/11 11/19/17 oxycodone-acetaminophen 1 tab PO QID #0 03/15/11 11/19/17 CHOLECALCIFEROL (VITAMIN D3) 2,000 iu PO Q DAY #0 03/29/11 11/19/17 (Vitamin D) atorvastatin [Lipitor] 20 mg PO QDAY #0 04/22/17 11/19/17 cyanocobalamin (vitamin B-12) 1,000 mcg PO QDAY #0 04/22/17 11/19/17 levocetirizine 5 mg PO QDAY #0 04/22/17 11/19/17 magnesium oxide 400 mg PO QDAY #0 04/22/17 11/19/17 multivitamin [Multiple Vitamins] 1 tab PO QDAY #0 04/22/17 11/19/17 omega 6-qcy-vms-fish oil [Fish Oil] 1,000 mg PO QDAY #0 04/22/17 11/19/17 quetiapine [Seroquel XR] 300 mg PO QDAY #0 04/22/17 11/19/17 desvenlafaxine succinate [Pristiq] #0 05/06/17 11/19/17 eszopiclone [Lunesta] #0 05/06/17 11/19/17 Previous Rx's Medication Instructions Recorded albuterol sulfate 2.5 mg INHALATION Q4-6H PRN #180 ml 11/16/17 prednisone See Label Instructions .ROUTE 11/16/17 .COMPLEX #30 tab topiramate 100 mg tablet 100 mg PO .COMPLEX #150 tab 11/19/17 ketorolac 10 mg tablet 10 mg PO .COMPLEX PRN 5 Days #20 03/13/18 tab diazepam 5 mg PO Q12HR PRN #10 tab 03/29/18 Allergies Allergy/AdvReac Type Severity Reaction Status Date / Time butorphanol [BUTORPHANOL] Allergy Severe CARDIAC Verified 01/09/18 23:01 ARREST doxycycline [DOXYCYCLINE] Allergy Severe SEVERE Verified 01/09/18 23:01 RASH, SICK TO STOMACH hydromorphone [From DILAUDID] Allergy Severe SEVERE Verified 01/09/18 23:01 RASH, NAUSEA morphine [MORPHINE] Allergy Severe 'BRINGS ON Verified 01/09/18 23:01 MY BLACKOUTS' pregabalin [PREGABALIN] Allergy Severe MOOD SWINGS Verified 01/09/18 23:01 sumatriptan [SUMATRIPTAN] Allergy Severe MAKES Verified 01/09/18 23:01 MIGRAINES WORSE vortioxetine Allergy Severe SUICIDAL Verified 01/09/18 23:01 [From TRINTELLIX] adhesive tape [ADHESIVE TAPE] Allergy Intermediate RASH FROM Verified 01/09/18 23:01 ALL TAPES; TEGEDERM IS LESS SEVERE simvastatin [SIMVASTATIN] Allergy Intermediate RASH, SICK Verified 01/09/18 23: 01 TO STOMACH amoxicillin [AMOXICILLIN] Allergy Unknown CHILDHOOD Verified 01/09/18 23:01 aspirin [ASPIRIN] Allergy Unknown Verified 01/09/18 23:01 erythromycin base Allergy Unknown UNKNOWN - Verified 01/09/18 23:01 [ERYTHROMYCIN BASE] CHILDHOOD Penicillins [PENICILLINS] Allergy Unknown UNKNOWN - Verified 01/09/18 23:01 CHILDHOOD codeine [CODEINE] AdvReac Severe GI UPSET, Verified 01/09/18 23:01 SEVERE HEADACHES vilazodone [From VIIBRYD] AdvReac Severe SEVERE Verified 01/09/18 23:01 DEPRESSION NSAIDS (Non-Steroidal AdvReac Intermediate upset Verified 01/09/18 23:01 Anti-Inflamma stomach [NSAIDS (NON-STEROIDAL ANTI-INFLAMMA] solifenacin [From VESICARE] AdvReac Mild UTIs Verified 01/09/18 23:01 Sulfa (Sulfonamide AdvReac Mild NAUSEA Verified 01/09/18 23:01 Antibiotics) [SULFA (SULFONAMIDE ANTIBIOTICS)] trimethoprim [TRIMETHOPRIM] AdvReac Mild NAUSEA Verified 01/09/18 23:01 Review of Systems Review of Systems All systems reviewed & are unremarkable except as noted in HPI and below Constitutional Denies chills, Denies fever(s), Denies lethargy and Denies weakness Cardiovascular Denies chest pain, Denies irregular heart rhythm, Denies lightheadedness, Denies palpitations, Denies dyspnea, Denies dyspnea on exertion and Denies orthopnea Respiratory Denies cough, Denies dyspnea, Denies dyspnea on exertion and Denies wheezing Gastrointestinal Gastrointestinal: Denies abdominal pain, Denies change in bowel habits, Denies diarrhea, Denies nausea and Denies vomiting Genitourinary Denies hematuria, Denies flank pain, Denies urinary incontinence and Denies urinary urgency Musculoskeletal Reports as per HPI Integumentary/Breasts Denies pruritus, Denies erythema, Denies rash and Denies wounds Neurologic Denies weakness Endocrine Denies palpitations Allergic/Immunologic Denies wheezing [facility] Social History Smoking Status: Former smoker Exam Initial Vital Signs Initial Vital Signs: Vital Signs Temperature 97.9 F 03/29/18 05:16 Pulse Rate 97 H 03/29/18 05:16 Respiratory Rate 18 03/29/18 05:16 Blood Pressure 122/78 03/29/18 05:16 Pulse Oximetry 99 03/29/18 05:16 GENERAL: Well-appearing, well-nourished and in no acute distress. HEENT: Head atraumatic,EOMI, pupils reactive, face symmetric, neck is tender in the paraspinal muscles only on the right side and trapezius muscles. No midline tenderness. CARDIOVASCULAR: Regular rate and rhythm without murmurs, rubs or gallops. RESPIRATORY: Breath sounds equal bilaterally, no wheezes rales or rhonchi. ABDOMEN: Soft, nontender. Normoactive bowel sounds all 4 quadrants. No guarding or rebound. EXTREMITIES: Normal range of motion, no clubbing or edema. 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 Pain is increased with movement. Pain is also reproduced in the trapezius and cervical pain. No clavicle step-offs. Sensation intact over the deltoid NEUROLOGICAL: Alert and oriented x4.Normal gait and speech. SKIN: Warm, dry, no laceration, no petechiae, no rashes or lesions. Course Orders Ordered: Discontinued Medications Diazepam (Valium) 5 mg PO NOW ONE Stop: 03/29/18 05:30 Last Admin: 03/29/18 05:41 Dose: 5 mg Ketorolac Tromethamine (Toradol) 30 mg IM NOW ONE Stop: 03/29/18 05:30 Last Admin: 03/29/18 05:41 Dose: 30 mg Vital Signs - 8 hr 03/29/18 05:16 03/29/18 06:20 Temperature 97.9 F Pulse Rate 97 H 96 H Respiratory Rate 18 18 Blood Pressure 122/78 109/67 Pulse Oximetry 99 98 MDM - Extremity (Nontraumatic) MDM Narrative Medical decision making narrative: Patient has some relief with Valium and Toradol. Pain is consistent with muscle spasm worse with movement reproducible with palpation. No injury or fall at this time no indication for imaging. She feels like her pain is subsided enough that she is ready and able to go home. She will specialist as scheduled. Discharge Plan Departure Patient Disposition: Home Clinical Impression: Muscle spasm of right shoulder Discharge Date/Time: 03/29/18 06:28 Interventions: ED Discharge Assessment Last Done: 03/29/18 06:20 Instructions: DI for Muscle Strain Activity Restrictions/Additional Instructions: *You have been diagnosed with muscle spasm *What to do: You are likely experiencing a muscle spasm. Recommend heating pad and increasing movement as tolerated. *Continue to take medications as directed Motrin 600 mg every 6-8 hours if needed for pain Valium 5 mg every 12 hr if needed for muscle spasm-this does cause drowsiness *Follow up with your primary care provider in 2-3 days *Return to ER if you should have increasing weakness, numbness, tingling or any new, worsening or concerning symptoms Prescriptions: New diazepam 5 mg tablet 5 mg PO Q12HR PRN (Reason: muscle spasm) Qty: 10 RF: 0 No Action montelukast [Singulair] 10 MG tablet 10 mg PO QDAY Qty: 0 RF: 0 levothyroxine 137 MCG tablet 137 mcg PO Q DAY Qty: 0 RF: 0 albuterol sulfate [Proventil HFA] 90 MCG/PUFF HFA aerosol inhaler 2 puff INH Q6HP PRNQty: 0 RF: 0 oxycodone-acetaminophen 10 MG/325 MG tablet 1 tab PO QID Qty: 0 RF: 0 CHOLECALCIFEROL (VITAMIN D3) (Vitamin D) 2,000 iu PO Q DAY Qty: 0 RF: 0 quetiapine [Seroquel XR] 300 MG tablet extended release 24 hr 300 mg PO QDAY Qty: 0 RF: 0 atorvastatin [Lipitor] 20 MG tablet 20 mg PO QDAY Qty: 0 RF: 0 levocetirizine 5 MG tablet 5 mg PO QDAY Qty: 0 RF: 0 multivitamin [Multiple Vitamins] 1 EACH tablet 1 tab PO QDAY Qty: 0 RF: 0 cyanocobalamin (vitamin B-12) 1,000 MCG tablet extended release 1,000 mcg PO QDAY Qty: 0 RF: 0 magnesium oxide 400 MG tablet 400 mg PO QDAY Qty: 0 RF: 0 omega 2-jlq-lal-fish oil [Fish Oil] 1,000 MG capsule 1,000 mg PO QDAY Qty: 0 RF: 0 eszopiclone [Lunesta] 1 MG tablet Qty: 0 RF: 0 desvenlafaxine succinate [Pristiq] 50 mg Tablet Extended Release 24 Hr Qty: 0 RF: 0 ketorolac 10 mg tablet 10 mg PO .COMPLEX PRN (Reason: pain) 5 Days Qty: 20 RF: 5 prednisone 10 mg tablet See Label Instructions .ROUTE .COMPLEX Qty: 30 RF: 0 albuterol sulfate 2.5 mg /3 mL (0.083 %) solution for nebulization 2.5 mg INHALATION Q4-6H PRN (Reason: shortness of breath or wheezing) Qty: 180 RF: 0 topiramate 100 mg tablet 100 mg PO .COMPLEX Qty: 150 RF: 11 Referrals: Aashish Aponte MD [Primary Care Provider] -
[2018-03-29] MEDS: KETOROLAC 60 MG/2 ML VIAL 30 MG IM (05:41)
[2018-03-29] MEDS: diazePAM 5 MG TABLET PO (05:41)
[2018-03-29 06:20] VITALS: BP 109/67; PULSE 96; RESP 18; O2SAT 98
== END 2018-03-29 06:28 | disposition home or self-care (01) ==
PROVIDERS: Emergency Provider Emergency Medicine; PCP Family Medicine
DX: M62.838 Other muscle spasm (principal)
CPT/HCPCS: 99282; 99283; J1885

== ENCOUNTER → 2018-04-22 12:53 | Outpatient (CLI) | payer MEDICARE, OTHER, MEDICAID, SELFPAY ==
--- NOTE | 2018-04-22 | DI.RAD.S_ITS ---
PROCEDURE: XR SHOULDER RT MIN 2V INDICATIONS: RT SHOULDER PAIN TECHNIQUE: 3 views of the shoulder were acquired. COMPARISON: [facility], , SHOULDER 1 VIEW LEFT, 12/22/2012, 1:29. FINDINGS: Bones: Mild glenohumeral joint space narrowing is seen. Acromioclavicular joint spaces are well preserved. No fractures or dislocations. No suspicious bony lesions. Visualized ribs appear intact. Anterior fusion hardware in lower cervical spine is seen. Soft tissues: No suspicious soft tissue calcifications. IMPRESSION: Very mild glenohumeral joint osteoarthritis. No fracture or dislocation. Dictated by: Tyrell Sotelo M.D. on 04/22/2018 at 14:46 Approved by: Tyrell Sotelo M.D. on 04/22/2018 at 14:47
== END ==
PROVIDERS: PCP Family Medicine; Visit Provider Acupuncturist
DX: M25.511 Pain in right shoulder (principal); M19.011 Primary osteoarthritis, right shoulder
CPT/HCPCS: 73030

== ENCOUNTER 2018-05-15 17:01 | Emergency (ER) | payer MEDICARE, OTHER, MEDICAID, SELFPAY ==
[2018-05-15 17:04] VITALS: BP 141/75; PULSE 100; RESP 16; TEMP 37; O2SAT 100; BMI 43.4
[2018-05-15] MEDS: diphenhydrAMINE 25 MG TABLET 50 MG PO (18:28)
[2018-05-15] MEDS: predniSONE 20 MG TABLET 40 MG PO (18:29)
--- NOTE | 2018-05-15 18:34 | ED_ITS ---
HPI - Allergic Reaction General Chief complaint: Allergic Reaction Stated complaint: STATES ALLERGIC REACTION TO MEDICATION Time Seen by Provider: 05/15/18 18:18 Source: patient Mode of arrival: ambulatory Limitations: no limitations History of Present Illness HPI narrative: Patient is a 62-year-old female who presents with pruritus all over. She was given medication fentanyl, Versed, propofol and Benadryl today for a procedure of moving her pain stimulator. She started itching all over. No tongue swelling no lip swelling no difficulty breathing. She says her throat itches but she is having no trouble swallowing or breathing. No other history of allergic reaction. MD complaint: allergic reaction Related Data Home Medications Medication Instructions Recorded Confirmed levothyroxine 137 mcg PO DAILY #0 01/03/11 05/15/18 montelukast [Singulair] 10 mg PO DAILY #0 01/03/11 05/15/18 albuterol sulfate [Proventil HFA] 2 puff INH Q6HP PRN #0 03/15/11 11/19/17 oxycodone-acetaminophen 1 tab PO QID #0 03/15/11 05/15/18 CHOLECALCIFEROL (VITAMIN D3) 2,000 iu PO Q DAY #0 03/29/11 11/19/17 (Vitamin D) cyanocobalamin (vitamin B-12) 1,000 mcg PO QDAY #0 04/22/17 11/19/17 levocetirizine 5 mg PO DAILY #0 04/22/17 05/15/18 magnesium oxide 400 mg PO QDAY #0 04/22/17 11/19/17 multivitamin [Multiple Vitamins] 1 tab PO QDAY #0 04/22/17 11/19/17 omega 9-cfb-sou-fish oil [Fish Oil] 1,000 mg PO QDAY #0 04/22/17 11/19/17 eszopiclone [Lunesta] #0 05/06/17 11/19/17 metformin 500 mg tablet 500 mg PO BID 04/09/18 05/15/18 desvenlafaxine succinate 50 mg PO DAILY 05/15/18 05/15/18 mirabegron [Myrbetriq] 05/15/18 omeprazole 05/15/18 quetiapine 300 mg PO DAILY 05/15/18 05/15/18 Previous Rx's Medication Instructions Recorded albuterol sulfate 2.5 mg INHALATION Q4-6H PRN #180 ml 11/16/17 topiramate 100 mg tablet 100 mg PO .COMPLEX #150 tab 11/19/17 diazepam 5 mg PO Q12HR PRN #10 tab 03/29/18 fremanezumab-vfrm 225 mg/1.5 mL 225 mg SUBCUT QMONTH #1.5 ml 04/09/18 subcutaneous syringe ketorolac 60 mg/2 mL intramuscular 60 mg IM .COMPLEX #8 ml 04/09/18 cartridge Allergies Allergy/AdvReac Type Severity Reaction Status Date / Time butorphanol [BUTORPHANOL] Allergy Severe CARDIAC Verified 04/09/18 08:19 ARREST doxycycline [DOXYCYCLINE] Allergy Severe SEVERE Verified 04/09/18 08:19 RASH, SICK TO STOMACH hydromorphone [From DILAUDID] Allergy Severe SEVERE Verified 04/09/18 08:19 RASH, NAUSEA morphine [MORPHINE] Allergy Severe 'BRINGS ON Verified 04/09/18 08:19 MY BLACKOUTS' pregabalin [PREGABALIN] Allergy Severe MOOD SWINGS Verified 04/09/18 08:19 sumatriptan [SUMATRIPTAN] Allergy Severe MAKES Verified 04/09/18 08:19 MIGRAINES WORSE vortioxetine Allergy Severe SUICIDAL Verified 04/09/18 08:19 [From TRINTELLIX] adhesive tape [ADHESIVE TAPE] Allergy Intermediate RASH FROM Verified 04/09/18 08:19 ALL TAPES; TEGEDERM IS LESS SEVERE simvastatin [SIMVASTATIN] Allergy Intermediate RASH, SICK Verified 04/09/18 08: 19 TO STOMACH amoxicillin [AMOXICILLIN] Allergy Unknown CHILDHOOD Verified 04/09/18 08:19 aspirin [ASPIRIN] Allergy Unknown Verified 04/09/18 08:19 erythromycin base Allergy Unknown UNKNOWN - Verified 04/09/18 08:19 [ERYTHROMYCIN BASE] CHILDHOOD Penicillins [PENICILLINS] Allergy Unknown UNKNOWN - Verified 04/09/18 08:19 CHILDHOOD codeine [CODEINE] AdvReac Severe GI UPSET, Verified 04/09/18 08:19 SEVERE HEADACHES vilazodone [From VIIBRYD] AdvReac Severe SEVERE Verified 04/09/18 08:19 DEPRESSION NSAIDS (Non-Steroidal AdvReac Intermediate upset Verified 04/09/18 08:19 Anti-Inflamma stomach [NSAIDS (NON-STEROIDAL ANTI-INFLAMMA] solifenacin [From VESICARE] AdvReac Mild UTIs Verified 04/09/18 08:19 Sulfa (Sulfonamide AdvReac Mild NAUSEA Verified 04/09/18 08:19 Antibiotics) [SULFA (SULFONAMIDE ANTIBIOTICS)] trimethoprim [TRIMETHOPRIM] AdvReac Mild NAUSEA Verified 04/09/18 08:19 Review of Systems Review of Systems All systems reviewed & are unremarkable except as noted in HPI and below Constitutional Denies chills, Denies fever(s), Denies lethargy and Denies weakness Cardiovascular Denies chest pain, Denies irregular heart rhythm, Denies lightheadedness, Denies palpitations, Denies dyspnea, Denies dyspnea on exertion and Denies orthopnea Respiratory Denies cough, Denies dyspnea, Denies dyspnea on exertion and Denies wheezing Gastrointestinal Gastrointestinal: Denies abdominal pain, Denies change in bowel habits, Denies diarrhea, Denies nausea and Denies vomiting Musculoskeletal Denies back pain, Denies muscle weakness, Denies numbness and Denies tingling Integumentary/Breasts Reports as per HPI, Reports pruritus, Reports erythema and Reports rash Neurologic Denies numbness, Denies tingling and Denies weakness Endocrine Denies palpitations Allergic/Immunologic Denies wheezing PFSH Medical History Anxiety (Acute) Bipolar 1 disorder (Acute) COPD (chronic obstructive pulmonary disease) (Acute) Conversion disorder (Acute) Depression (Acute) Hyperlipemia (Acute) Surgical History History of knee replacement procedure of right knee (Acute) Social History Smoking Status: Former smoker Exam Initial Vital Signs Initial Vital Signs: Vital Signs Temperature 98.6 F 05/15/18 17:04 Pulse Rate 100 H 05/15/18 17:04 Respiratory Rate 16 05/15/18 17:04 Blood Pressure 141/75 H 05/15/18 17:04 Pulse Oximetry 100 05/15/18 17:04 GENERAL: Well-appearing, well-nourished and in no acute distress. HEENT: Head atraumatic,EOMI, pupils reactive. No swelling of lips or tongue CARDIOVASCULAR: Regular rate and rhythm without murmurs, rubs or gallops. RESPIRATORY: Breath sounds equal bilaterally, no wheezes rales or rhonchi. No stridor no difficulty breathing ABDOMEN: Soft, nontender. Normoactive bowel sounds all 4 quadrants. No guarding or rebound. : No CVA tenderness EXTREMITIES: Normal range of motion, no clubbing or edema. Neurovascularly intact NEUROLOGICAL: Alert and oriented x4.Normal gait and speech. Cranial nerves II through XII grossly intact. SKIN: Diffuse erythema, no vesicles no fluctuation Course Orders Ordered: Discontinued Medications Diphenhydramine HCl (Benadryl) 50 mg PO NOW ONE Stop: 05/15/18 18:23 Last Admin: 05/15/18 18:28 Dose: 50 mg Prednisone (Deltasone) 40 mg PO NOW ONE Stop: 05/15/18 18:23 Last Admin: 05/15/18 18:29 Dose: 40 mg Ranitidine HCl (Zantac) 150 mg PO NOW ONE Stop: 05/15/18 18:23 Last Admin: 05/15/18 18:29 Dose: 150 mg Vital Signs - 8 hr 05/15/18 17:04 05/15/18 19:02 Temperature 98.6 F Pulse Rate 100 H 61 Respiratory Rate 16 18 Blood Pressure 141/75 H Blood Pressure [Left Arm] 134/69 Pulse Oximetry 100 97 Discharge Plan Departure Patient Disposition: Home Clinical Impression: Allergic reaction Discharge Date/Time: 05/15/18 19:05 Interventions: ED Discharge Assessment Last Done: 05/15/18 19:03 Instructions: DI for General Allergic Reactions Activity Restrictions/Additional Instructions: *You have been diagnosed with allergic reaction *What to do: You may require further testing to find what specific you are allergic to. Prednisone may increase your blood sugar *Continue to take medications as directed Benadryl 25-50 mg every 6 hr if needed for itching *Follow up with your primary care provider in 2-3 days *Return to ER if you should have tongue swelling, lip swelling, difficulty breathing or any new, worsening or concerning symptoms Prescriptions: No Action montelukast [Singulair] 10 MG tablet 10 mg PO DAILY Qty: 0 RF: 0 levothyroxine 137 MCG tablet 137 mcg PO DAILY Qty: 0 RF: 0 albuterol sulfate [Proventil HFA] 90 MCG/PUFF HFA aerosol inhaler 2 puff INH Q6HP PRNQty: 0 RF: 0 oxycodone-acetaminophen 10 MG/325 MG tablet 1 tab PO QID Qty: 0 RF: 0 CHOLECALCIFEROL (VITAMIN D3) (Vitamin D) 2,000 iu PO Q DAY Qty: 0 RF: 0 levocetirizine 5 MG tablet 5 mg PO DAILY Qty: 0 RF: 0 multivitamin [Multiple Vitamins] 1 EACH tablet 1 tab PO QDAY Qty: 0 RF: 0 cyanocobalamin (vitamin B-12) 1,000 MCG tablet extended release 1,000 mcg PO QDAY Qty: 0 RF: 0 magnesium oxide 400 MG tablet 400 mg PO QDAY Qty: 0 RF: 0 omega 3-wxr-fjt-fish oil [Fish Oil] 1,000 MG capsule 1,000 mg PO QDAY Qty: 0 RF: 0 eszopiclone [Lunesta] 1 MG tablet Qty: 0 RF: 0 diazepam 5 mg tablet 5 mg PO Q12HR PRN (Reason: muscle spasm) Qty: 10 RF: 0 albuterol sulfate 2.5 mg /3 mL (0.083 %) solution for nebulization 2.5 mg INHALATION Q4-6H PRN (Reason: shortness of breath or wheezing) Qty: 180 RF: 0 quetiapine 300 mg tablet 300 mg PO DAILY RF: 0 omeprazole 20 mg capsule,delayed release(DR/EC) RF: 0 desvenlafaxine succinate 50 mg tablet extended release 24 hr 50 mg PO DAILY RF: 0 mirabegron [Myrbetriq] 50 mg tablet extended release 24 hr RF: 0 metformin 500 mg tablet 500 mg PO BID RF: 0 fremanezumab-vfrm [Ajovy] 225 mg/1.5 mL syringe 225 mg SUBCUT QMONTH Qty: 1.5 RF: 11 ketorolac 60 mg/2 mL cartridge 60 mg IM .COMPLEX Qty: 8 RF: 11 topiramate 100 mg tablet 100 mg PO .COMPLEX Qty: 150 RF: 11 Referrals: Aashish Aponte MD [Primary Care Provider] -
[2018-05-15 19:02] VITALS: BP 134/69; PULSE 61; RESP 18; O2SAT 97
== END 2018-05-15 19:05 | disposition home or self-care (01) ==
PROVIDERS: Emergency Provider Emergency Medicine; PCP Family Medicine
DX: T78.40XA Allergy, unspecified, initial encounter (principal)
CPT/HCPCS: 99282; 99283

== ENCOUNTER 2018-06-17 12:45 | Inpatient (IN) | payer MEDICARE, OTHER, MEDICAID, SELFPAY ==
[2018-05-30 12:49] VITALS: BMI 43.7
[2018-06-16] VITALS (14 sets, daily range): BP systolic 104–148; BP diastolic 60–77; PULSE 65–91; RESP 13–20; TEMP 36–37; O2SAT 94–100; BMI 43.7
--- NOTE | 2018-06-16 06:00 | DI.RAD.S_ITS ---
PROCEDURE: XR KNEE LT 1TO2V INDICATIONS: prosthesis placement TECHNIQUE: 2 view(s) of the knee acquired. COMPARISON: [facility], [place], XR KNEE LT 3V, 02/17/2018, 0:57. [facility], [facility], XR KNEE LT 3V, 01/09/2018, 22:46. FINDINGS: Bones: Patient is status post knee joint arthroplasty. Hardware components are in expected positions. Visualized bony structures are intact. Soft tissues: Overlying postoperative changes are noted. IMPRESSION: Normal postoperative appearance after left total knee arthroplasty, with a small amount of expected gas within the soft tissues as a result. Dictated by: Bertin Ferro M.D. on 06/16/2018 at 14:59 Approved by: Bertin Ferro M.D. on 06/16/2018 at 15:00
[2018-06-16] MEDS: ACETAMINOPHEN 325 MG TABLET 975 MG PO ×3 (11:02→20:18)
[2018-06-16] MEDS: LACTATED RINGERS 1,000 ML 42 ML IV ×2 (11:04→14:44)
--- NOTE | 2018-06-16 11:04 | SUR.OPER ---
Supine on padded OR bed. Pillow under head, arms secured on padded armboards <90 degree abduction. Safety belt across torso. Non-operative leg secured with tape over blanket over lower leg. Operative leg secured in [employer]/Sivakumar positioner. Foam padded brace at thigh of operative leg.
--- NOTE | 2018-06-16 11:08 | SUR.PREOP ---
pt has pain stiimulator inserted in mid back. pt turned off stimulator at 1105. remote to pain stimulator with pt 's.
--- NOTE | 2018-06-16 12:04 | SUR.PREOP ---
PT STATED SHE WAS CONCERNED WITH THE CURRENT ORDER FOR CLINDAMYCIN SHE IS ALLERGIC TO VANCOMYCIN AND ERYTHROMYCIN. SPOKE WITH DR. WIGGINS REGARDING PT'S CONCERN. PER DR. WIGGINS OK WITH CURRENT ORDER FOR CLINDAMYCIN. COMMUNICATED THIS WITH [employer].
--- NOTE | 2018-06-16 12:07 | PM.PREOP ---
Pre-operative Note Interval Note History & Physical reviewed/Exam performed by Physician: Yes Changes to H&P: No
[2018-06-16] MEDS: CLINDAMYCIN 900 MG/50 ML PIGGYBACK 50 MG IV ×2 (12:49→19:22)
[2018-06-16] MEDS: TRANEXAMIC ACID 1,000 MG VIAL 1000 MG INJ ×2 (13:23→14:19)
[2018-06-16] MEDS: BUPIVACAINE 0.25% W/ EPI VIAL 60 ML INJ (13:24)
[2018-06-16] MEDS: BUPIVACAINE LIPOSOME 266 MG/20 ML VIAL INJ (13:24)
--- NOTE | 2018-06-16 14:52 | P.OP_ITS ---
Operative Date/Time/Diagnoses Date of procedure: 06/16/18 Time of procedure: 14:10 Pre-op diagnosis: Left knee osteoarthritis Post-op diagnosis: same Procedure & Clinicians Procedure: Left total knee replacement Same procedure as scheduled: Yes Indications: The patient has had progressively worsening left knee pain with radiographic changes consistent with arthritis. Non-operative management has failed and the patient has requested total knee replacement. The risks, benefits and alternatives to surgery were discussed with the patient prior to proceeding. Risks discussed included, but were not limited to, failure to relieve pain, stiffness, infection, nerve damage, deep venous thrombosis, pulmonary embolism, stroke, coma, heart attack, permanent paralysis and , as well as the potential need for eventual revision of the prosthetic. Surgeon: George Danielle Roller Stitcher: Brittani Bacon Click Yes if Unassisted: No Anesthesia Type: Spinal, Sedation and Local Operative Notes Findings: Moderately severe tricompartmental osteoarthritis of the left knee Closure Type: primary Specimen(s): none sent Implants & Drains: Implants used in this procedure were manufactured by the [employer] and included the BCS II Journey total knee replacement with a size 4 left Oxinium femoral component, size 3 left non porous tibial base plate with a 9 mm cross-linked polyethylene tibial insert and a 32 mm oval Nubia II patella. Applied: implant(s) Estimated Blood Loss (mL): 50 Blood products transfused: none Tourniquet time (min): 52 Procedure in detail: The patient was seen in the pre-operative area, where the left knee was identified as the operative site and this was marked with my initials. The patient received pre-operative antibiotics, and was taken to the operating room and placed on the operative table in the supine position. After satisfactory anesthesia, a full fashioned garment knitter out? was performed. The left leg was encircled with a tourniquet about the proximal thigh, and the leg was prepared from the toes to the tourniquet with ChloroPrep in the usual fashion and draped through sterile drapes. The leg was elevated and exsanguinated with Eschmark bandage and the tourniquet inflated to 250 mmHg pressure. The knee was approached through an approximately 18 cm incision centered over the patella and carried into the knee through a medial parapatellar arthrotomy. The anterior osteophytes and soft tissues were removed. The rotational landmarks of Evans's line and the transepicondylar axis were marked on the femur with electrocautery, and intramedullary guide holes for the femur and tibia were created. The distal femoral cut was made in 6 degrees of valgus using the intramedullary guide at the primary cut setting. The proximal tibial cut was then made using the intramedullary guide, taking 9 mm of bone off the less involved side. The extension gap was checked and the rotation of the femoral component confirmed with the gap balancing blocks. The anterior, posterior and chamfer cuts were then made. The posterior osteophytes and soft tissues were then removed. The posterior capsule was injected with part of a mixture of 60 ml 0.25% Marcaine mixed with 20 ml Exparel for post-operative pain control. The remainder of this mixture was injected into the capsule and subcutaneous tissues during cement curing. The tibia was prepared with the rotation set by an extra medullary guide. Trial tibial and femoral components were then placed and the intercondylar notch cut through the femoral trial. Range of motion was 0-135 degrees, with good stability throughout the range. The patella was then cut to accommodate the patellar prosthetic. There was no need for a lateral release. The trials were then removed, and the femoral hole plugged with a bone plug. The bone was prepared with pulsatile lavage, and dried with a sponge. Cement was applied and the final prosthetics placed. Excess cement was removed during and after cement curing. After confirming there was no extruded cement posteriorly, the final tibial insert was placed. The knee was copiously irrigated and the tourniquet deflated. Hemostasis was obtained. The capsule was closed with interrupted # 2 polyester sutures. The subcutaneous layer was closed with 3-0 Vicryl, and the skin with a running 3-0 V-Lock suture and SteriStrips. An Aquacel Ag dressing was applied and the patient was taken to recovery having tolerated the procedure well. Complications: none Condition: stable Disposition: PACU Plan for aftercare: The patient will be maintained on a standard total knee replacement protocol with weight bearing as tolerated. The patient will receive aspirin and sequential compression devices for DVT prophylaxis. The patient will be discharged home when safe for the home environment.
--- NOTE | 2018-06-16 15:06 | SUR.PHASEI ---
stable pacu stay, no nausea no c/o pain, pt ready to go at 1510, unable to transfer due to report cecil crawford called, okayed pt to transfer up by 1530 to do bedside report.
--- NOTE | 2018-06-16 16:24 | SUR.PHASEI ---
late entry: pt transported up to room 206 and left under the care of betzaida crawford and left in stable condition. R top of foot with dry flacky skin and some reddened area- not draining pt stated it is always there and sometimes causes her to scratch it.
--- NOTE | 2018-06-16 17:00 | PT.IPTN ---
Current Diagnoses Bipolar disorder, unspecified (06/16/18) Major depressive disorder, single episode, unspecified (06/16/18) Claustrophobia (06/16/18) Anxiety disorder, unspecified (06/16/18) Dissociative and conversion disorder, unspecified (06/16/18) Sleep apnea, unspecified (06/16/18) Chronic obstructive pulmonary disease, unspecified (06/16/18) Unspecified asthma, uncomplicated (06/16/18) Bilateral primary osteoarthritis of knee (06/16/18) Unilateral primary osteoarthritis, left knee (06/16/18) Other amnesia (06/16/18) Syncope and collapse (06/16/18) Surgery Performed Operation Date: 06/16/18 12:45 Actual Procedures p Total Knee Arthroplasty(Left) - George Danielle MD Physical Therapy Treatment Note M3 PT-IP Subjective Start: 06/16/18 16:54 Freq: NEEDED Status: Active Protocol: Document 06/16/18 16:54 (Rec: 06/16/18 17:00 [id number]) Subjective Physical Therapy Visit Type Type Administrative Note Visit Start Time 16:55 Notes Pt arrived acute care at 340pm . Pt states that she has 10/10 L knee pain and does not want to get OOB until tomorrow due to severe pain. RN is giving IV placement on her L UE upon assessment. Left TKA booklet for pt to review.
[2018-06-16] MEDS: OXYCODONE IR 10 MG TABLET PO ×3 (17:34→23:39)
[2018-06-16] MEDS: LACTATED RINGERS 1,000 ML 125 ML IV (17:35)
[2018-06-16] MEDS: hydrOXYzine pamoate 25 MG CAPSULE PO (20:18)
[2018-06-16] MEDS: METFORMIN HCL 500 MG TABLET PO (20:18)
[2018-06-16] MEDS: DOCUSATE 100 MG CAPSULE PO (20:18)
[2018-06-16] MEDS: TOPIRAMATE 100 MG TABLET 300 MG PO (20:19)
[2018-06-16] MEDS: ASPIRIN EC 81 MG TABLET PO (20:21)
[2018-06-16] MEDS: QUETIAPINE 100 MG TABLET 300 MG PO (20:28)
[2018-06-16] MEDS: ZOLPIDEM 5 MG TABLET 10 MG PO (23:39)
[2018-06-17] MEDS: CLINDAMYCIN 900 MG/50 ML PIGGYBACK 50 MG IV ×3 (01:15→11:27)
[2018-06-17] MEDS: OXYCODONE IR 10 MG TABLET PO ×7 (02:57→22:52)
[2018-06-17] MEDS: hydrOXYzine pamoate 25 MG CAPSULE PO ×3 (02:58→17:09)
[2018-06-17] MEDS: LACTATED RINGERS 1,000 ML 125 ML IV (03:36)
[2018-06-17 03:40] VITALS: BP 134/69; PULSE 82; RESP 16; TEMP 36.7; O2SAT 98
[2018-06-17 05:56] LABS: Hematocrit 37.1 % (36-46); Hemoglobin 12.3 g/dL (12.0-16.0)
[2018-06-17] MEDS: PANTOPRAZOLE 20 MG TABLET PO (05:56)
--- NOTE | 2018-06-17 07:49 | PM.PNPO.1 ---
Subjective Date Patient Seen: 06/17/18 Time Patient Seen: 07:49 Interval history: The patient reports significant pain difficulty. She also states that she uses morphine at home and that this is not an allergy for her. It has been entered into the chart as an allergy in error as she stated if she uses enough she has blackouts. Exam Vital Signs (past 8 hours): - 06/17/18 03:40 Temperature 98.1 F Pulse Rate 82 Respiratory Rate 16 Blood Pressure 134/69 Pulse Oximetry 98 Oxygen Delivery Method Room Air Narrative Exam Narrative: Left knee wound is dressed with no drainage on the bandage. Calf is soft. Light touch and motion are intact in the left lower extremity. Objective Labs Result Diagrams: 06/17/18 05:31 Labs: Laboratory Results - last 24 hr 06/17/18 05:31 Hgb 12.3 Hct 37.1 Assessment & Plan Post-op Postoperative Procedures Operation Date: 06/16/18 12:45 Actual Procedures Side Surgeon p Total Knee Arthroplasty Left George Danielle MD Postoperative day: 1 Postoperative status: doing well and marginal pain control Postoperative status narrative: The patient has moderate pain control difficulties. She is narcotic dependent at baseline. This makes her postoperative pain control difficult. She also has reported allergies to almost every narcotic. She clarifies today that morphine is not an allergy. Postoperative plan: routine post-op care and ambulate Postoperative plan narrative: We will add morphine for breakthrough pain. She will work with physical therapy. It is not anticipated she will be ready for discharge today. If she makes substantial progress with physical therapy she may be able to go home tomorrow. Time Spent With Patient less than 15 minutes Quality VTE Deep Vein Thrombosis/Pulmonary Embolism Present on Admission: No
[2018-06-17] MEDS: TOPIRAMATE 100 MG TABLET 200 MG PO (08:00)
[2018-06-17] MEDS: MAGNESIUM OXIDE 400 MG TABLET PO (08:02)
[2018-06-17] MEDS: MULTIVITAMIN 1 TABLET 1 TAB PO (08:02)
[2018-06-17] MEDS: FISH OIL 1,000 MG CAPSULE 1000 MG PO (08:04)
[2018-06-17] MEDS: ASPIRIN EC 81 MG TABLET PO ×2 (08:04→19:10)
[2018-06-17] MEDS: CHOLECALCIFEROL (VITAMIN D3) 1,000 UNIT TABLET 2000 UNIT PO (08:05)
[2018-06-17] MEDS: CYANOCOBALAMIN (VITAMIN B-12) 500 MCG TABLET 1000 MCG PO (08:05)
[2018-06-17] MEDS: DOCUSATE 100 MG CAPSULE PO ×2 (08:06→19:09)
[2018-06-17] MEDS: MORPHINE 2 MG/ML INJ 1 MG IV ×5 (08:06→22:57)
[2018-06-17] MEDS: ACETAMINOPHEN 325 MG TABLET 975 MG PO ×2 (08:08→19:09)
[2018-06-17] MEDS: LEVOTHYROXINE 137 MCG TABLET PO (08:10)
[2018-06-17] MEDS: METFORMIN HCL 500 MG TABLET PO ×2 (08:11→19:10)
[2018-06-17] MEDS: MONTELUKAST 10 MG TABLET PO (08:11)
[2018-06-17 08:14] VITALS: BP 128/70; PULSE 96; RESP 18; TEMP 37.2; O2SAT 95
--- NOTE | 2018-06-17 08:21 | PC.NURSE ---
Pt up to BCS, gait steady with one assist and FWW. Voided and assisted to chair. Pt rates pain to L knee 10/10. 1mg IVP Morphine given as ordered.
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
[2018-06-17] MEDS: SODIUM CHLORIDE 0.9% FLUSH 10 ML IV ×2 (11:28→19:09)
[2018-06-17 11:50] VITALS: BP 152/86; PULSE 93; RESP 18; TEMP 37.3; O2SAT 95
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
[2018-06-17] MEDS: DESVENLAFAXINE SUCCINATE 50 MG 50 EACH PO (14:17)
--- NOTE | 2018-06-17 15:34 | PT.IPTN ---
Current Diagnoses Bipolar disorder, unspecified (06/16/18) Major depressive disorder, single episode, unspecified (06/16/18) Claustrophobia (06/16/18) Anxiety disorder, unspecified (06/16/18) Dissociative and conversion disorder, unspecified (06/16/18) Sleep apnea, unspecified (06/16/18) Chronic obstructive pulmonary disease, unspecified (06/16/18) Unspecified asthma, uncomplicated (06/16/18) Bilateral primary osteoarthritis of knee (06/16/18) Unilateral primary osteoarthritis, left knee (06/16/18) Other amnesia (06/16/18) Syncope and collapse (06/16/18) Surgery Performed Operation Date: 06/16/18 12:45 Actual Procedures p Total Knee Arthroplasty(Left) - George Danielle MD Physical Therapy Treatment Note M2 PT-IP Current Condition Start: 06/16/18 16:54 Freq: NEEDED Status: Active Protocol: Document 06/17/18 09:30 AB (Rec: 06/17/18 12:24 AB [id number]) Physical Therapy Current Condition Current Condition Evaluation Date 06/17/18 Treatment Diagnosis s/p L TKA Onset Date 06/16/18 Weight Bearing Status Weight Bearing Status Weight Bear as Tolerated M3 PT-IP Subjective Start: 06/16/18 16:54 Freq: NEEDED Status: Active Protocol: Document 06/17/18 13:37 CLB (Rec: 06/17/18 15:34 CLB [id number]) Subjective Physical Therapy Visit Type Type Treatment Note Visit Start Time 13:37 Visit Stop Time 14:10 Total Visit Minutes 33 Number of CHILD CARE CENTRE MANAGER Visits 1 Physical Therapy Visit Comments Patient Comments Pt willing to get OOB and sit in chair. Patient Goals to go home Therapy Pain Assessment Pain When Pain Assessed At Rest Pain Present Pain Present Pain Reported Location Left Knee Intensity 8 Scale Used 10/10 with movement Description Dull Spasm Tightness Pain Management Techniques Apply Cold Distraction Timing of Activity with Medications M4 PT-IP Mobility and Gait Start: 06/16/18 16:54 Freq: NEEDED Status: Active Protocol: Document 06/17/18 13:37 CLB (Rec: 06/17/18 15:34 CLB [id number]) PT-Bed Mobility Assessment Sit to Supine Sit to Supine Minimal Assistance Head of Bed Elevated Scooting Scooting to Edge of Bed Moderate Assistance PT-Transfer Assessment Sit to and From Stand Sit to and from Stand Minimal Assistance 1 Person Assistance Use of Upper Extremities Equipment Transfer Assistive Device Gait Belt Front Wheeled Walker Orthotic/Prosthetic Devices or Brace: No Comments Mobility Comments Pt improving with bed mobility but required Mod A scooting to EOB. Pt able to stand from bed Min A with cues for hand and foot placement. Gait Assessment Gait Gait Assistance Required: Minimum Assistance 1 Person Assist Distance (Feet) 20 Able to Maintain Weight Bearing Status Yes During Gait Assistive Devices Assistive Device Gait Belt Front Wheeled Walker Orthotic/Prosthetic Devices or Brace: No Gait Deviations General Gait Pattern Antalgic Decreased Stride Length Decreased Feet Clearance Step-to Gait Factors Limiting Gait Function Factors Limiting Gait Function Decreased Activity Tolerance Decreased Strength Limited Range of Motion Pain Poor Balance Poor Safety Awareness Comments Gait Comments Pt ambulated 10ft Min A to BR then another 10ft to chair. Pt stated pn increased to 10/10 with ambulation. Stair Climbing Assessment Comments Stair Climbing Comments unable at this time M5 PT-IP Objective Assessments Start: 06/16/18 16:54 Freq: NEEDED Status: Active Protocol: Document 06/17/18 09:30 AB (Rec: 06/17/18 12:24 AB [id number]) Orientation Orientation/Cognition Level of Alertness Alert Orientation Name Age Birthday Month Date Year Day of Week Place Situation Gross Range of Motion Lower Extremity ROM Impairments decrease L knee flexion/ extension ROM Strength Lower Extremity Strength Assessment Left Impaired Knee 3-/5 M6 PT-IP Treatment Start: 06/16/18 16:54 Freq: NEEDED Status: Active Protocol: Document 06/17/18 13:37 CLB (Rec: 06/17/18 15:34 CLB [id number]) Physical Therapy Treatment Exercises Exercises Quad Sets Heel Slides Straight Leg Raises Short Arc Quads Education Education Provided Precautions Weight Bearing Status Post-Op Packet Safety M7 PT-IP Assessment and Plan Start: 06/16/18 16:54 Freq: NEEDED Status: Active Protocol: Document 06/17/18 13:37 CLB (Rec: 06/17/18 15:34 CLB [id number]) PT Summary Assessment and Plan Summary Impairments Pain ROM Strength Balance Coordination Sensation Tone Cognition Bed Mobility Transfers Gait Activity Tolerance Assessment Summary Pt improved with bed mobility, transfers and gait distance. Pt required Min A for sit- stand from bed and toilet and needed assist donning brief. Pt d/c plan is dependant on progress, pt may require SNF rehab. Goals Bed Mobility Goal Independent Transfer Goal Independent Four Wheeled Walker Gait Goal Independent Four Wheel Walker Gait Distance 100 Other Goals up/down 5 steps R rail SBA Days to Meet Goals 5 Frequency of Treatment Frequency Of Treatment Twice a Day Treatment Plan Physical Therapy Treatment Plan Bed Mobility Training Transfer Training Gait Training Therapeutic Exercise Balance Retraining Post Op Education Discharge Planning Hot or Cold Pack Neuromuscular Re-ed Coordination Retraining Manual Therapy Recommendations To Nursing Amount of Assist Needed 1 Person Assist Discharge Recommendations PT Discharge Recommendations SNF Rehab Equipment Needed for Home Before FWW if going home and not same Discharge with 4WW
[2018-06-17 16:13] VITALS: BP 147/75; PULSE 87; RESP 16; TEMP 37.4; O2SAT 100
--- NOTE | 2018-06-17 18:15 | PC.NURSE ---
PATIENT HAVING ALOT OF PAIN WITH THE KORINA IN PLACE TO LEFT KNEE,REQUESTED TO HAVE REMOVED. KORINA WRAP REMOVED LEG ON PILLOW ICE PACK IN PLACE.
[2018-06-17] MEDS: ZOLPIDEM 5 MG TABLET 10 MG PO ×2 (19:06→23:56)
[2018-06-17] MEDS: QUETIAPINE 100 MG TABLET 300 MG PO (19:07)
[2018-06-17] MEDS: TOPIRAMATE 100 MG TABLET 300 MG PO (19:07)
[2018-06-17 20:38] VITALS: BP 128/89; PULSE 96; RESP 18; TEMP 37.6; O2SAT 99
[2018-06-17 23:10] VITALS: BP 131/77; PULSE 106; RESP 16; TEMP 37.6; O2SAT 95
[2018-06-18] VITALS (7 sets, daily range): BP systolic 106–137; BP diastolic 59–86; PULSE 109–121; RESP 14–18; TEMP 36.7–37.1; O2SAT 95–98
[2018-06-18] MEDS: IBUPROFEN 600 MG TABLET PO (01:32)
[2018-06-18] MEDS: hydrOXYzine pamoate 25 MG CAPSULE PO ×3 (01:32→14:55)
[2018-06-18] MEDS: OXYCODONE IR 10 MG TABLET PO ×5 (04:01→18:58)
[2018-06-18] MEDS: PANTOPRAZOLE 20 MG TABLET PO (06:33)
[2018-06-18] MEDS: MORPHINE 2 MG/ML INJ 1 MG IV ×4 (06:37→19:39)
--- NOTE | 2018-06-18 06:44 | P.PN_ITS ---
Subjective Date Patient Seen: 06/18/18 Time Patient Seen: 06:41 Interval history: The patient reports she intermittently has had severe pain control issues. She is making progress with physical therapy. Exam Vital Signs (past 8 hours): - 06/17/18 23:10 06/18/18 04:15 Temperature 99.7 F H 98.8 F Pulse Rate 106 H 112 H Respiratory Rate 16 16 Blood Pressure 131/77 116/65 Pulse Oximetry 95 95 Oxygen Delivery Method Room Air Oxygen Flow Rate 0 Narrative Exam Narrative: On physical exam the left knee wound is dressed with no drainage on the bandage. Calf is soft. Light touch and motion are intact in the left lower extremity. Objective Labs Result Diagrams: 06/17/18 05:31 Assessment & Plan Post-op Postoperative Procedures Operation Date: 06/16/18 12:45 Actual Procedures Side Surgeon p Total Knee Arthroplasty Left George Danielle MD Postoperative day: 2 Postoperative status: doing well and marginal pain control Postoperative status narrative: The patient is dependent on narcotics preoperatively and this has made her postoperative pain control difficult. She is making progress with physical therapy despite her pain. At this point physical therapy notes state it is possible she may need a detention facility. Postoperative plan: routine post-op care and ambulate Postoperative plan narrative: We will continue physical therapy. We will continue both oral and parenteral narcotic pain relief. We hope she progresses well enough for discharge tomorrow to home. Time Spent With Patient less than 15 minutes Quality VTE Deep Vein Thrombosis/Pulmonary Embolism Present on Admission: No
[2018-06-18] MEDS: SODIUM CHLORIDE 0.9% FLUSH 10 ML IV ×2 (09:33→16:30)
[2018-06-18] MEDS: ACETAMINOPHEN 325 MG TABLET 975 MG PO ×3 (09:39→21:18)
[2018-06-18] MEDS: FISH OIL 1,000 MG CAPSULE 1000 MG PO (09:40)
[2018-06-18] MEDS: MAGNESIUM OXIDE 400 MG TABLET PO (09:41)
[2018-06-18] MEDS: MULTIVITAMIN 1 TABLET 1 TAB PO (09:41)
[2018-06-18] MEDS: ASPIRIN EC 81 MG TABLET PO ×2 (09:42→21:17)
[2018-06-18] MEDS: DOCUSATE 100 MG CAPSULE PO ×2 (09:43→21:18)
[2018-06-18] MEDS: CHOLECALCIFEROL (VITAMIN D3) 1,000 UNIT TABLET 2000 UNIT PO (09:43)
[2018-06-18] MEDS: CYANOCOBALAMIN (VITAMIN B-12) 500 MCG TABLET 1000 MCG PO (09:44)
[2018-06-18] MEDS: LEVOTHYROXINE 137 MCG TABLET PO (09:44)
[2018-06-18] MEDS: METFORMIN HCL 500 MG TABLET PO ×2 (09:45→21:18)
[2018-06-18] MEDS: TOPIRAMATE 100 MG TABLET 200 MG PO (09:45)
[2018-06-18] MEDS: MONTELUKAST 10 MG TABLET PO (09:45)
[2018-06-18] MEDS: DESVENLAFAXINE SUCCINATE 50 MG 50 EACH PO (09:46)
--- NOTE | 2018-06-18 10:35 | PT.IPTN ---
Current Diagnoses Bipolar disorder, unspecified (06/16/18) Major depressive disorder, single episode, unspecified (06/16/18) Claustrophobia (06/16/18) Anxiety disorder, unspecified (06/16/18) Dissociative and conversion disorder, unspecified (06/16/18) Sleep apnea, unspecified (06/16/18) Chronic obstructive pulmonary disease, unspecified (06/16/18) Unspecified asthma, uncomplicated (06/16/18) Bilateral primary osteoarthritis of knee (06/16/18) Unilateral primary osteoarthritis, left knee (06/16/18) Other amnesia (06/16/18) Syncope and collapse (06/16/18) Surgery Performed Operation Date: 06/16/18 12:45 Actual Procedures p Total Knee Arthroplasty(Left) - George Danielle MD Physical Therapy Treatment Note M2 PT-IP Current Condition Start: 06/16/18 16:54 Freq: NEEDED Status: Active Protocol: Document 06/17/18 09:30 AB (Rec: 06/17/18 12:24 AB [id number]) Physical Therapy Current Condition Current Condition Evaluation Date 06/17/18 Treatment Diagnosis s/p L TKA Onset Date 06/16/18 Weight Bearing Status Weight Bearing Status Weight Bear as Tolerated M3 PT-IP Subjective Start: 06/16/18 16:54 Freq: NEEDED Status: Active Protocol: Document 06/18/18 10:35 GGD (Rec: 06/18/18 11:51 GGD [id number]) Subjective Physical Therapy Visit Type Type Treatment Note Visit Start Time 09:55 Visit Stop Time 10:35 Total Visit Minutes 40 Number of FLEET ASSISTANT Visits 2 Physical Therapy Visit Comments Patient Comments Pt willing to work with therapy. Therapy Pain Assessment Pain When Pain Assessed During Mobility Pain Present Pain Present Pain Reported Location Left Knee Intensity 10 Scale Used Numeric (1 - 10) M4 PT-IP Mobility and Gait Start: 06/16/18 16:54 Freq: NEEDED Status: Active Protocol: Document 06/18/18 10:35 GGD (Rec: 06/18/18 11:51 GGD [id number]) PT-Bed Mobility Assessment Sit to Supine Sit to Supine Minimal Assistance Bedrails Scooting Scooting to Edge of Bed Standby Assistance PT-Transfer Assessment Sit to and From Stand Sit to and from Stand Contact Guard Assistance 1 Person Assistance Use of Upper Extremities Equipment Transfer Assistive Device Gait Belt Front Wheeled Walker Orthotic/Prosthetic Devices or Brace: No Transfers Transfer Destination Bed Transfer Ability Level of Assist Minimal Assistance Gait Assessment Gait Gait Assistance Required: Contact Guard Assist Distance (Feet) 90 Able to Maintain Weight Bearing Status Yes During Gait Assistive Devices Assistive Device Gait Belt Front Wheeled Walker Orthotic/Prosthetic Devices or Brace: No Gait Deviations General Gait Pattern Antalgic Decreased Stride Length Decreased Feet Clearance Step-to Gait Factors Limiting Gait Function Factors Limiting Gait Function Decreased Activity Tolerance Decreased Strength Limited Range of Motion Pain Poor Balance Poor Safety Awareness Stair Climbing Assessment Evaluation Level of Assist On Stairs Contact Guard Assistance Devices Stair Climbing Assistive Devices Left Railing Right Railing Technique/Endurance Stair Climbing Direction Ascend and Descend Stair Climbing Technique Step to Step Number of Steps Climbed 3 Query Text: Stair Climbing Set # Repetitions (reps) 1 M5 PT-IP Objective Assessments Start: 06/16/18 16:54 Freq: NEEDED Status: Active Protocol: Document 06/17/18 09:30 AB (Rec: 06/17/18 12:24 AB [id number]) Orientation Orientation/Cognition Level of Alertness Alert Orientation Name Age Birthday Month Date Year Day of Week Place Situation Gross Range of Motion Lower Extremity ROM Impairments decrease L knee flexion/ extension ROM Strength Lower Extremity Strength Assessment Left Impaired Knee 3-/5 M6 PT-IP Treatment Start: 06/16/18 16:54 Freq: NEEDED Status: Active Protocol: Document 06/18/18 10:35 GGD (Rec: 06/18/18 11:51 GGD [id number]) Physical Therapy Treatment Exercises Exercises Quad Sets Heel Slides Seated Knee Flexion/Extension M7 PT-IP Assessment and Plan Start: 06/16/18 16:54 Freq: NEEDED Status: Active Protocol: Document 06/18/18 10:35 GGD (Rec: 06/18/18 11:51 GGD [id number]) PT Summary Assessment and Plan Summary Assessment Summary Pt improving with mobility. She was safe and stable with gait and stair mobility. She did have increase in pain with ambulation. She will be safe for home D/C when medically stable. Frequency of Treatment Frequency Of Treatment Twice a Day Treatment Plan Physical Therapy Treatment Plan Bed Mobility Training Transfer Training Gait Training Therapeutic Exercise Balance Retraining Post Op Education Discharge Planning Hot or Cold Pack Neuromuscular Re-ed Coordination Retraining Manual Therapy Recommendations To Nursing Amount of Assist Needed 1 Person Assist Discharge Recommendations PT Discharge Recommendations Home with 10/12 Assist Equipment Needed for Home Before Pt states she got a FWW Discharge
--- NOTE | 2018-06-18 12:30 | CM.DPC ---
DCP/continued: Reviewed chart. Patient progressing with therapy slowly. Met briefly with patient today and she continues to plan to discharge home when stable. Patient believes that she will be discharged tomorrow 06-19-18. Patient seen by PT and cleared to d/c home with outpatient f/u. No additional needs identified at this time. Patient's day care provider from [facility]/Rigoberto stopped by to visit patient today and obtained FWW for patient for home use. Patient reports that she does have walker but that different type recommended. P: Home when stable. Anticipate d/c tomorrow 06-19-18. VAMSI Grimaldo Discharge Planning/Care Management CM Discharge Assessment Start: 06/18/18 12:15 Freq: Status: Active Protocol: Document 06/18/18 12:16 KJS (Rec: 06/18/18 12:29 KJS [id number]) Discharge Planning Assessment Assigned Drapery Hemmer Automatic VAMSI Grimaldo Contact Information Dallin Kelly (spouse) [phone] Advance Directives? Yes: at home not here Advance Directives on File No History Provided By Patient Prior Living Arrangements Mobile home Household Members family Type of transporation used prior to Relies on Others admit Independent with ADL's No: Needs minimal assistance with ADL's. Is patient alert and oriented? Yes Caregiver for Another No DME Already Rented / Owned FWW / Walker Cane Name of Agency [employer] Hours / Month Patient receives assistrance 5dys per week 3hrs per day. Comment YUMIKO/CM is Tejal Puckett ph# [phone]. Patient also with day care provider through [facility] Rigoberto Seals ph# . Barriers to Discharge No Discharge Plan Home Transportation Arrangement Family/caregiver can provide transportation. Referrals Initiated None needed Whiteboard Updated in Patient Room with Yes name and ext. # of Drapery Hemmer Automatic Comment Reviewed chart. Patient is a 62yr old female [facility] for left TKA performed by Dr. Danielle. PC is YORDY Vaughan. Primary payor is 1)Medicare 2)[employer]. Met with patient on 06-17-18 explained CM/SW role. Patient reports that she plans to go home at time of d/c. Patient uses walker at baseline and does not drive. Patient resides with spouse/Dallin and plans to attend outpatient therapy sessions at [facility]. Patient had not yet been seen by therapy at time of CM department initial visit . Patient does report that she has caregiver assistance 5dys per week for 3hrs per day from [employer]. Patient has assigned CM through [facility] and it is Tejal Carmona. Patient also has assigned day care provider Rigoberto Seals ph# . Spoke with Ortho/YORDY Anderson on and he reports due to pain issues patient will not discharge on Saturday. Current plan is for patient to d/c home when medically stable. Review Status In Process Please Provide Date Initial DC 06/17/18 Assessment Was Performed Next Review Type Continued Stay Review Pre-Anesthesia Assessment Start: 05/30/18 12:49 Freq: Status: Complete Protocol: Document 05/30/18 12:49 VLYong (Rec: 05/30/18 12:59 [facility] [id number]) Pre-Anesthesia Assessment Patient Also Known As (LAYA Eller Patient Information Reviewed Via Chart Review Phone Assessment Assessment Completed With Patient Primary Care Provider Aashish Aponte Medical Clearance Received Yes Seen Specialist in Last 12 Months Yes Specialist Seen Cook Night ENT Aeron[employer] Director Orthopedist Urologist Other Comment [facility]; [address] hearing Dr Primary Language [place] [facility] Specialist Required No Height 163.2 cm Weight 116.573 kg Body Mass Index (BMI) 43.7 Hearing Ability Hard of Hearing Visual Impairment Partially Limited Visual Assist Glasses Dentition Type Full- Upper & Lower Barriers to Learning Auditory Memory Visual Other Aids No Comment Needs hearing aids/can't afford them Hx Anesthesia Reactions No Hx Family Anesthesia Reaction No Hx Malignant Hyperthermia No Hx Blood Transfusions No Anesthesia Review Requested No Tape Librarian No alcohol intake former Alcohol Intake Frequency Other: Denied by patient Smoking Status Former smoker Tobacco type cigarettes Has it been 2 weeks or less since No patient quit smoking how long ago did patient quit smoking 1975 Smoking pack-years 2 Substance Use Type does not use opiates painkillers Pain Present Pain Reported Comment Back, L knee, neck, R shoulder , R hip Musculoskeletal Symptoms Abnormal Gait Back Pain Difficulty Walking Joint Pain Muscle Spasms Neck Pain Radiating Pain into Limb History of Falling (Recent or History of Yes ) Patient is completely paralyzed or No completely immobile Ambulatory Aid Crutches/cane/walker Prosthesis or Orthotic Device Cane Front Wheel Walker Gait/Transferring Weak Impaired Mental Status Forgets limitations Comment Right arm weakness Is patient on oxygen? No Does patient have SINCLAIR/SOB Yes Hx Sleep Apnea Yes: No CPAP/claustrophobia Will Bring CPAP/BIPAP DOS No Suspected Sleep Apnea No Currently Taking a Beta Tina No Can You Climb a Flight of Stairs Without No: Dyspnea after walking 1/2 SOB block Hx Chest Pain Yes: Stable, non-exertional after spicy foods Hx SOB Yes Hx Syncope or Dizziness Yes Anti-Coagulant Therapy No Has a Cook Night Yes: Jeremy Cardiac Testing Yes: 2016 Echo/Stress to med records to scan Hx Pacemaker/ICD No Pacemaker Rep Required? 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 in the last 30 days? Marital Status Lives With spouse other Prior Living Arrangements Mobile home Number of Floors (Floors) One Floor Number of Stairs To Enter/Railing? stairs into home w/rail Support System Caregiver Mirna/God Family Friend(s) Spouse Does the Patient Have Assistance After Yes Surgery Patient Discharge Plan Description Home Health Comment Grandson age 17 Feels Safe in Current Environment Yes Been Physically Hurt or Threatened By a No Person in Current Environment Do you have thoughts of harming yourself None or others? Are you currently considering suicide? No Do you have a plan to hurt yourself or No Plan others? Comment States medication is well controlled Do You Have Any Spiritual Beliefs That No May Affect Your HC Choices? Do You Have Any Cultural Practices That No May Affect Your HC Choices? Spiritual Referral Adventism Clergy Comment [facility] amish Who Can We Speak to About Patient's Care Friends & Family Identifying Code for Release of Patient Declined Information Health Care Proxy/Next of Kin - Dallin Kelly Health Care Proxy Emergency Contact Name - Dallin Kelly Emergency Contact Advance Directives? Yes: at home not here Advance Directives on File No Requested Patient Bring Advanced Yes Directives DOS Power of Pool Manager Yes Power of Pool Manager Name - Dallin Kelly Power of Pool Manager Comment Will bring POA on admit PAC Instructions Assistance for 24 hours post- op Do not shave/clip surgical site Durable medical equipment Medications to take/avoid Nasal antibiotic No ETOH/petroleum product on skin DOS NPO Ortho class Post-op transportation Pre-op antibiotic Pre-surgical wash Sensory aids Sturdy shoes/comfortable clothes Do not bring valuables and remove jewelry Comment Check-in [id number]
--- NOTE | 2018-06-18 12:55 | PC.NURSE ---
Addendum entered by Nida Gutiérrez R.N. 06/18/18 16:14: HR noted to be tachy throughout shift, HR 116bpm and regular upon auscultation/assessment, enc po fluids and water intake. Pt reported voiding 1 time with another SENIOR CONTROLS TECHNICIAN and PT, PT denied this. Pt did void once prior to shift change that was dark urine. Pt stated she drinks soda and home and is not much of a water drinker. Dr. Danielle office contacted and spoke with his RN Laura. EKG order rec'd and consult to medical doctor. Dr. Madison made aware. Spoke again with Laura RN at Dr. Danielle office, hold consult for now and new order for 500ml NS bolus over 1 hour rec'd. Evening RN aware. Original Note: Day Shift- Pt states not having a reaction to Morphine as stated on her allergy list, no side effects noted from IV Morphine. Pt does state that NSAIDS give her a very upset stomach. Did not want prn Ibuprofen. Pain rated at 6-10/10 pain to left knee today. Ice pack offered several times, after wotking on stair training with PT, pt had ice pack to left knee.
--- NOTE | 2018-06-18 14:50 | PT.IPTN ---
Current Diagnoses Bipolar disorder, unspecified (06/16/18) Major depressive disorder, single episode, unspecified (06/16/18) Claustrophobia (06/16/18) Anxiety disorder, unspecified (06/16/18) Dissociative and conversion disorder, unspecified (06/16/18) Sleep apnea, unspecified (06/16/18) Chronic obstructive pulmonary disease, unspecified (06/16/18) Unspecified asthma, uncomplicated (06/16/18) Bilateral primary osteoarthritis of knee (06/16/18) Unilateral primary osteoarthritis, left knee (06/16/18) Other amnesia (06/16/18) Syncope and collapse (06/16/18) Surgery Performed Operation Date: 06/16/18 12:45 Actual Procedures p Total Knee Arthroplasty(Left) - George Danielle MD Physical Therapy Treatment Note M2 PT-IP Current Condition Start: 06/16/18 16:54 Freq: NEEDED Status: Active Protocol: Document 06/17/18 09:30 AB (Rec: 06/17/18 12:24 AB [id number]) Physical Therapy Current Condition Current Condition Evaluation Date 06/17/18 Treatment Diagnosis s/p L TKA Onset Date 06/16/18 Weight Bearing Status Weight Bearing Status Weight Bear as Tolerated M3 PT-IP Subjective Start: 06/16/18 16:54 Freq: NEEDED Status: Active Protocol: Document 06/18/18 14:50 GGD (Rec: 06/18/18 15:33 GGD [id number]) Subjective Physical Therapy Visit Type Type Treatment Note Visit Start Time 14:20 Visit Stop Time 14:50 Total Visit Minutes 30 Number of AUTOMOTIVE COLLISION REPAIR INSTRUCTOR Visits 3 Physical Therapy Visit Comments Patient Comments Pt states she needs to use the bathroom. Therapy Pain Assessment Pain When Pain Assessed During Mobility Pain Present Pain Present Pain Reported Location Left Knee Intensity 8 Scale Used Numeric (1 - 10) M4 PT-IP Mobility and Gait Start: 06/16/18 16:54 Freq: NEEDED Status: Active Protocol: Document 06/18/18 14:50 GGD (Rec: 06/18/18 15:33 GGD [id number]) PT-Bed Mobility Assessment Supine to Sit Supine to Sit Contact Guard Assistance Head of Bed Elevated Bedrails Scooting Scooting to Edge of Bed Standby Assistance PT-Transfer Assessment Sit to and From Stand Sit to and from Stand Contact Guard Assistance 1 Person Assistance Use of Upper Extremities Equipment Transfer Assistive Device Gait Belt Front Wheeled Walker Orthotic/Prosthetic Devices or Brace: No Transfers Transfer Destination Chair Toilet Transfer Ability Level of Assist Minimal Assistance Gait Assessment Gait Gait Assistance Required: Contact Guard Assist Distance (Feet) 50 Able to Maintain Weight Bearing Status Yes During Gait Assistive Devices Assistive Device Gait Belt Front Wheeled Walker Orthotic/Prosthetic Devices or Brace: No Gait Deviations General Gait Pattern Antalgic Decreased Stride Length Decreased Feet Clearance Step-to Gait Factors Limiting Gait Function Factors Limiting Gait Function Decreased Activity Tolerance Decreased Strength Limited Range of Motion Pain Poor Balance Poor Safety Awareness M5 PT-IP Objective Assessments Start: 06/16/18 16:54 Freq: NEEDED Status: Active Protocol: Document 06/17/18 09:30 AB (Rec: 06/17/18 12:24 AB [id number]) Orientation Orientation/Cognition Level of Alertness Alert Orientation Name Age Birthday Month Date Year Day of Week Place Situation Gross Range of Motion Lower Extremity ROM Impairments decrease L knee flexion/ extension ROM Strength Lower Extremity Strength Assessment Left Impaired Knee 3-/5 M6 PT-IP Treatment Start: 06/16/18 16:54 Freq: NEEDED Status: Active Protocol: Document 06/18/18 14:50 GGD (Rec: 06/18/18 15:33 GGD [id number]) Physical Therapy Treatment Exercises Exercises Quad Sets Heel Slides Seated Knee Flexion/Extension M7 PT-IP Assessment and Plan Start: 06/16/18 16:54 Freq: NEEDED Status: Active Protocol: Document 06/18/18 14:50 GGD (Rec: 06/18/18 15:33 GGD [id number]) PT Summary Assessment and Plan Summary Assessment Summary Pt improving with bed mobility . She has a slow step to gait pattern, but was safe. She did need min A with left LE for bed mobility. Pt safe for home D/C. Frequency of Treatment Frequency Of Treatment Twice a Day Recommendations To Nursing Amount of Assist Needed 1 Person Assist Discharge Recommendations PT Discharge Recommendations Home with 10/12 Assist
[2018-06-18] MEDS: SODIUM CHLORIDE 0.9% 500 ML IV (16:22)
[2018-06-18] MEDS: TOPIRAMATE 100 MG TABLET 300 MG PO (21:19)
[2018-06-18] MEDS: QUETIAPINE 100 MG TABLET 300 MG PO (21:19)
[2018-06-18] MEDS: ZOLPIDEM 5 MG TABLET 10 MG PO (22:47)
[2018-06-19] MEDS: OXYCODONE IR 10 MG TABLET PO ×3 (03:20→11:25)
[2018-06-19 04:04] VITALS: BP 118/72; PULSE 107; RESP 18; TEMP 37.1; O2SAT 98
[2018-06-19] MEDS: MORPHINE 2 MG/ML INJ 1 MG IV (06:08)
[2018-06-19] MEDS: hydrOXYzine pamoate 25 MG CAPSULE PO ×2 (06:08→11:35)
[2018-06-19] MEDS: PANTOPRAZOLE 20 MG TABLET PO (06:08)
[2018-06-19 07:21] VITALS: BP 118/71; PULSE 110; RESP 18; TEMP 37.5; O2SAT 96
[2018-06-19] MEDS: ACETAMINOPHEN 325 MG TABLET 975 MG PO (08:36)
[2018-06-19] MEDS: MAGNESIUM OXIDE 400 MG TABLET PO (08:37)
[2018-06-19] MEDS: ASPIRIN EC 81 MG TABLET PO (08:37)
[2018-06-19] MEDS: DOCUSATE 100 MG CAPSULE PO (08:37)
[2018-06-19] MEDS: CHOLECALCIFEROL (VITAMIN D3) 1,000 UNIT TABLET 2000 UNIT PO (08:38)
[2018-06-19] MEDS: METFORMIN HCL 500 MG TABLET PO (08:38)
[2018-06-19] MEDS: LEVOTHYROXINE 137 MCG TABLET PO (08:38)
[2018-06-19] MEDS: CYANOCOBALAMIN (VITAMIN B-12) 500 MCG TABLET 1000 MCG PO (08:39)
[2018-06-19] MEDS: FISH OIL 1,000 MG CAPSULE 1000 MG PO (08:39)
[2018-06-19] MEDS: MULTIVITAMIN 1 TABLET 1 TAB PO (08:39)
[2018-06-19] MEDS: TOPIRAMATE 100 MG TABLET 200 MG PO (08:39)
[2018-06-19] MEDS: MONTELUKAST 10 MG TABLET PO (08:40)
[2018-06-19] MEDS: DESVENLAFAXINE SUCCINATE 50 MG 50 EACH PO (08:40)
[2018-06-19] MEDS: SODIUM CHLORIDE 0.9% FLUSH 10 ML IV (08:41)
--- NOTE | 2018-06-19 08:47 | PM.DS.1 ---
History of Present Illness Date Patient Seen: 06/19/18 Time Patient Seen: 08:48 Chief complaint: [id number] LEFT TOTAL KNEE ARTHROPLASTY Narrative: Hospital day 4, postop day 3 following left total knee arthroplasty by Dr. Danielle. Patient continues to having noticeable pain to her left knee but feels it is improving. Has been receiving IV morphine as well as oxycodone 10 mg. She does feel that she will do okay at home oxycodone. Patient is desiring to go home today. She does have help at home. She has been seen by physical therapy who feels that she is stable for home. She has physical therapy scheduled at [facility]. She does have a pain stimulator which was turned on during the night and she self adjusts. Discharge Providers Date of admission: 06/16/18 10:19 Primary care physician: Rafy Martin Consults: 06/16/18 15:48 Consult to Discharge Planning Routine Comment: Consult to Physical Therapy Evaluate & Treat Comment: Physician Instructions: postop TKA protocol Consult to Respiratory Therapy Evaluate & Treat Comment: Physician Instructions: Evaluate and treat 06/18/18 13:23 Consult to Physician Routine Comment: for tachycardia Consulting Provider: George Danielle Reason for consultation: tachycardia Discharge provider: Martir Flower PA-C Discharge Date: 06/19/18 Summary Discharge Diagnosis: Status post left total knee arthroplasty Hospital Course: Patient brought to hospital on 06/16/2018 for above noted surgery. She remained stable postoperatively except for pain control issue. Patient was narcotic dependent preoperatively with Percocet. She progressed with physical therapy. Patient desiring to go home on postop day 3. Status at Discharge Cognitive/behavioral status at discharge: Alert, oriented no acute distress Functional status at discharge: uses cane/walker Overall status at discharge: patient is progressing back to baseline Time Spent with Patient Less than 30 minutes Exam Vital Signs (past 8 hours): - 06/19/18 04:04 06/19/18 07:21 Temperature 98.8 F 99.5 F Pulse Rate 107 H 110 H Respiratory Rate 18 18 Blood Pressure 118/72 118/71 Pulse Oximetry 98 96 Fraction of Inspired Oxygen 21 Oxygen Delivery Method Room Air Oxygen Flow Rate 0 Narrative Exam Narrative: Left leg. Aquacel dressing to left knee is dry without drainage or inflammation. No calf pain or swelling. Pulses symmetrical. Patient is able to actively move her knee with limited range of motion. Objective Labs Result Diagrams: 06/17/18 05:31 Discharge Plan Discharge Plan Patient Disposition: Home Discharge comment: Discharged home after cleared by PT. She is scheduled to go to [facility] PT. Discharge Med Rec/Prescriptions Prescriptions: New aspirin 81 mg Tablet,Delayed Release (Dr/Ec) 81 mg PO BID Qty: 60 RF: 0 docusate sodium 100 mg Capsule 100 mg PO BID Qty: 30 RF: 0 hydroxyzine pamoate 25 mg Capsule 25 mg PO Q6HR PRN (Reason: Nausea) Qty: 30 RF: 0 oxycodone 10 mg Tablet 10 mg PO Q3HR PRN (Reason: Pain, Severe (7-10)) Qty: 30 RF: 0 Continue montelukast [Singulair] 10 MG tablet 10 mg PO DAILY Qty: 0 RF: 0 levothyroxine 137 MCG tablet 137 mcg PO DAILY Qty: 0 RF: 0 oxycodone-acetaminophen 10 MG/325 MG tablet 1 tab PO QID Qty: 0 RF: 0 cholecalciferol (vitamin D3) [Vitamin D3] 2,000 unit Capsule 2,000 unit PO DAILY Qty: 0 RF: 0 levocetirizine 5 MG tablet 5 mg PO DAILY PRN (Reason: Allergy Symptoms) Qty: 0 RF: 0 multivitamin [Multiple Vitamins] 1 EACH tablet 1 tab PO QDAY Qty: 0 RF: 0 cyanocobalamin (vitamin B-12) 1,000 MCG tablet extended release 1,000 mcg PO QDAY Qty: 0 RF: 0 magnesium oxide 400 MG tablet 400 mg PO QDAY Qty: 0 RF: 0 omega 3-gki-dyb-fish oil [Fish Oil] 1,000 MG capsule 1,000 mg PO QDAY Qty: 0 RF: 0 epinephrine [EpiPen] 0.3 mg/0.3 mL Auto-Injector 0.3 mg IM SEEINSTR PRN (Reason: Anaphylxis) RF: 0 mirabegron [Myrbetriq] 50 mg Tablet Extended Release 24 Hr 100 mg PO DAILY RF: 0 albuterol sulfate [Ventolin HFA] 90 mcg/actuation Hfa Aerosol Inhaler 2 puff INHALATION Q4H PRN (Reason: Wheeze) RF: 0 ketorolac 10 mg Tablet 30 mg PO PRN PRN (Reason: Migraines) RF: 0 fluticasone-salmeterol 115-21 mcg/actuation Hfa Aerosol Inhaler 2 puff INHALATION Q12H RF: 0 quetiapine 300 mg tablet 300 mg PO BEDTIME RF: 0 omeprazole 20 mg capsule,delayed release(DR/EC) 20 mg PO DAILY RF: 0 desvenlafaxine succinate 50 mg tablet extended release 24 hr 50 mg PO DAILY RF: 0 metformin 500 mg tablet 500 mg PO BID RF: 0 fremanezumab-vfrm [Ajovy] 225 mg/1.5 mL syringe 225 mg SUBCUT QMONTH Qty: 1.5 RF: 11 ketorolac 60 mg/2 mL cartridge 60 mg IM .COMPLEX Qty: 8 RF: 11 topiramate 100 mg tablet 100 mg PO .COMPLEX Qty: 150 RF: 11 Follow up/Referrals: Rafy Martin [Primary Care Provider] - Provider Discharge Instructions Diet: Diet as Tolerated Activity: Ambulate as tolerated. Cold/Heat Therapy: Cold pack to left knee as needed. Other treatments: Use aspirin 81 mg 1 b.i.d. times 30 days postop. Patient may use oxycodone 10 mg along with Percocet 10/325 mg if needed for increased pain. Skin/Wound/Dressing Care Report to your healthcare provider any signs of infection, such as:: chills, fever, night sweats, increased pain, unusual drainage and unusual redness Dressing: Keep Aquacel dressing in place until postop visit. Visit Report/Discharge Packet Instructions: DI for Knee Replacement, How to Prevent Falls, DI for Postoperative Pain Visit Report Forms: Stroke Signs & Symptoms Discharge Data Primary Care Provider: Rafy Martin Attending Provider: George Danielle Admit Date/Time: 06/16/18 10:19 Quality VTE Deep Vein Thrombosis/Pulmonary Embolism Present on Admission: No
[2018-06-19 09:32] VITALS: PULSE 115; RESP 16; O2SAT 96
--- NOTE | 2018-06-19 11:26 | PT.IPTN ---
Current Diagnoses Bipolar disorder, unspecified (06/16/18) Major depressive disorder, single episode, unspecified (06/16/18) Claustrophobia (06/16/18) Anxiety disorder, unspecified (06/16/18) Dissociative and conversion disorder, unspecified (06/16/18) Sleep apnea, unspecified (06/16/18) Chronic obstructive pulmonary disease, unspecified (06/16/18) Unspecified asthma, uncomplicated (06/16/18) Bilateral primary osteoarthritis of knee (06/16/18) Unilateral primary osteoarthritis, left knee (06/16/18) Tachycardia, unspecified (06/16/18) Other amnesia (06/16/18) Syncope and collapse (06/16/18) Surgery Performed Operation Date: 06/16/18 12:45 Actual Procedures p Total Knee Arthroplasty(Left) - George Danielle MD Physical Therapy Treatment Note M2 PT-IP Current Condition Start: 06/16/18 16:54 Freq: NEEDED Status: Active Protocol: Document 06/17/18 09:30 AB (Rec: 06/17/18 12:24 AB [id number]) Physical Therapy Current Condition Current Condition Evaluation Date 06/17/18 Treatment Diagnosis s/p L TKA Onset Date 06/16/18 Weight Bearing Status Weight Bearing Status Weight Bear as Tolerated M3 PT-IP Subjective Start: 06/16/18 16:54 Freq: NEEDED Status: Active Protocol: Document 06/19/18 11:15 GGD (Rec: 06/19/18 11:26 GGD [id number]) Subjective Physical Therapy Visit Type Type Treatment Note Visit Start Time 10:40 Visit Stop Time 11:15 Total Visit Minutes 35 Number of ROOM MAID Visits 4 Physical Therapy Visit Comments Patient Comments Pt states she feels ready for D/C. Therapy Pain Assessment Pain When Pain Assessed During Mobility Pain Present Pain Present Pain Reported Location Left Knee Intensity 7 Scale Used Numeric (1 - 10) M4 PT-IP Mobility and Gait Start: 06/16/18 16:54 Freq: NEEDED Status: Active Protocol: Document 06/19/18 11:15 GGD (Rec: 06/19/18 11:26 GGD [id number]) PT-Bed Mobility Assessment Supine to Sit Supine to Sit Contact Guard Assistance Bedrails Scooting Scooting to Edge of Bed Standby Assistance PT-Transfer Assessment Sit to and From Stand Sit to and from Stand Contact Guard Assistance 1 Person Assistance Use of Upper Extremities Equipment Transfer Assistive Device Gait Belt Front Wheeled Walker Orthotic/Prosthetic Devices or Brace: No Transfers Transfer Destination Chair Toilet Transfer Ability Level of Assist Minimal Assistance Gait Assessment Gait Gait Assistance Required: Contact Guard Assist Distance (Feet) 100 Able to Maintain Weight Bearing Status Yes During Gait Assistive Devices Assistive Device Gait Belt Front Wheeled Walker Orthotic/Prosthetic Devices or Brace: No Gait Deviations General Gait Pattern Antalgic Decreased Stride Length Decreased Feet Clearance Step-to Gait Factors Limiting Gait Function Factors Limiting Gait Function Decreased Activity Tolerance Decreased Strength Limited Range of Motion Pain Poor Balance Poor Safety Awareness M5 PT-IP Objective Assessments Start: 06/16/18 16:54 Freq: NEEDED Status: Active Protocol: Document 06/17/18 09:30 AB (Rec: 06/17/18 12:24 AB [id number]) Orientation Orientation/Cognition Level of Alertness Alert Orientation Name Age Birthday Month Date Year Day of Week Place Situation Gross Range of Motion Lower Extremity ROM Impairments decrease L knee flexion/ extension ROM Strength Lower Extremity Strength Assessment Left Impaired Knee 3-/5 M6 PT-IP Treatment Start: 06/16/18 16:54 Freq: NEEDED Status: Active Protocol: Document 06/19/18 11:15 GGD (Rec: 06/19/18 11:26 GGD [id number]) Physical Therapy Treatment Exercises Exercises Quad Sets Heel Slides Seated Knee Flexion/Extension M7 PT-IP Assessment and Plan Start: 06/16/18 16:54 Freq: NEEDED Status: Active Protocol: Document 06/19/18 11:15 GGD (Rec: 06/19/18 11:26 GGD [id number]) PT Summary Assessment and Plan Summary Assessment Summary Pt is improving slowly. She was able to progress gait distance. She had a slow step to gait pattern. Frequency of Treatment Frequency Of Treatment Twice a Day Recommendations To Nursing Amount of Assist Needed 1 Person Assist Discharge Recommendations PT Discharge Recommendations Home with 10/12 Assist
--- NOTE | 2018-06-19 12:09 | PC.NURSE ---
Day Shift- Pt cleared by PT to go home. Left knee aquacel dressing CDI, edema noted to surrounding left knee. OOB with 1PA using FWW. Prn Vistaril and Oxycodone given prior to discharge home. [facility] director of student financial services Livia reviewed written discharge instructions from discharge summary packet with this RN's supervision. Pt had no voiced concerns. Pt given back her home medication bottle of Desvenlafaxine and Mirabegron. Pt given her prescriptions for Oxycodone and Vistaril. Pt had her small service dog visit her for a couple hours prior to discharge that her daughter brought with her. Pt left unit via wheelchair in no distress at 1200, her daughter is present to drive pt home.
== END 2018-06-19 12:00 | disposition home or self-care (01) | DRG 470 ==
LOC: AC 06-19 08:53 → OR 06-19 12:50 → AC 06-19 12:52
PROVIDERS: Admitting Provider Orthopaedic Surgery; PCP Physician Assistant Medical; Visit Provider Orthopaedic Surgery
PROC: 0SRD0JZ Replacement of Left Knee Joint with Synthetic Substitute, Open Approach (ICD-10-PCS; CPT 27447; principal; 2018-06-16 12:45)
DX: M17.12 Unilateral primary osteoarthritis, left knee (principal); Z68.41 Body mass index [BMI] 40.0-44.9, adult; F11.20 Opioid dependence, uncomplicated; Z96.651 Presence of right artificial knee joint; E66.01 Morbid (severe) obesity due to excess calories; E03.9 Hypothyroidism, unspecified; M79.7 Fibromyalgia; E11.9 Type 2 diabetes mellitus without complications; F32.9 Major depressive disorder, single episode, unspecified; J45.909 Unspecified asthma, uncomplicated; G89.4 Chronic pain syndrome; Z79.84 Long term (current) use of oral hypoglycemic drugs; Z96.89 Presence of other specified functional implants; K21.9 Gastro-esophageal reflux disease without esophagitis; G47.33 Obstructive sleep apnea (adult) (pediatric)
CPT/HCPCS: 36415; 73560; 82962; 85014; 85018; 93005; 94760; 97110; 97116; 97162; 97530; C1776; A9270; C9290; J2250; J2270; J2704

== ENCOUNTER → 2018-12-12 13:43 | Outpatient (CLI) | payer MEDICARE, OTHER, MEDICAID, SELFPAY ==
[2018-06-16 16:33] VITALS: BMI 43.7
--- NOTE | 2018-12-12 13:50 | DI.CT.S_ITS ---
PROCEDURE: CT CERVICAL SPINE WO CON INDICATIONS: CERVICALGIA TECHNIQUE: Noncontrast 3 mm thick sections acquired from the skull base to the T4 level. Sagittal and coronal reformats were then constructed. For radiation dose reduction, the following was used: automated exposure control, adjustment of mA and/or kV according to patient size. COMPARISON: [facility], CT, C-SPINE WITH CONTRAST, 07/15/2012, 14:53. FINDINGS: Image quality: Excellent. Bones: Postsurgical changes compatible with C4-C6 ACDF noted. Orthopedic hardware is intact. No lucency is identified at the bone hardware interface. No fractures or dislocations. Visualized superior ribs are intact. Mild C2-C3, moderate C3-C4, severe C6-C7 and moderate C7-T1 degenerative disc disease. Mild C2-C3, C3-C4, C6-C7 and C7-T1 facet arthropathy. No significant central canal narrowing. No significant neuroforaminal narrowing. Soft tissues: Prevertebral soft tissues are normal in thickness. No paravertebral hematomas. No apical pneumothoraces. IMPRESSION: 1. Status post C4-C6 ACDF. 2. Multilevel degenerative disease 3. Multilevel facet arthropathy 4. No fracture. No acute osseous lesion. If symptoms and/or clinical suspicion for pathology persists, evaluation with MRI may be helpful for further assessment. Dictated by: June Montes De Oca MD, PhD on 12/12/2018 at 16:07 Approved by: June Montes De Oca MD, PhD on 12/12/2018 at 16:48
== END ==
PROVIDERS: PCP Physician Assistant Medical; Visit Provider Acupuncturist
DX: M50.33 Other cervical disc degeneration, cervicothoracic region (principal); M50.31 Other cervical disc degeneration, high cervical region; M50.323 Other cervical disc degeneration at C6-C7 level; M47.812 Spondylosis without myelopathy or radiculopathy, cervical region; Z98.1 Arthrodesis status
CPT/HCPCS: 72125

== ENCOUNTER 2019-03-05 06:01 | Inpatient (IN) | payer MEDICARE, OTHER, MEDICAID, SELFPAY ==
[2018-06-16 16:33] VITALS: BMI 43.7
[2019-02-19 12:59] VITALS: BMI 41.2
[2019-03-05] VITALS (23 sets, daily range): BP systolic 128–174; BP diastolic 47–111; PULSE 87–122; RESP 10–28; TEMP 36.1–37; O2SAT 95–100; BMI 40.6
--- NOTE | 2019-03-05 | DI.RAD.S_ITS ---
PROCEDURE: XR CERVICAL SPINE 2V OR 3V INDICATIONS: C3-4 ACDF, C6-7 ACDF REMOVAL OF OLD FUSION PLATE TECHNIQUE: 4 view(s) of the cervical spine were acquired. COMPARISON: [facility], CERVICAL SPINE 2 OR 3 VIEWS, 12/22/2012, 1:29. FINDINGS: 4 spot fluoroscopic intraoperative views demonstrating ACDF at the C3-C4 and C6-C7 level. Dictated by: Jameson Chen M.D. on 03/05/2019 at 11:48 Approved by: Jameson Chen M.D. on 03/05/2019 at 11:50
[2019-03-05] MEDS: LACTATED RINGERS 1,000 ML 42 ML IV ×2 (07:11→10:34)
--- NOTE | 2019-03-05 07:49 | SUR.PREOP ---
Spoke with Dr. Doshi regarding current order for Clindamycin and pt childhood allergy to all mycin drugs with unknown reaction. Per Dr. Doshi ok to continue with current plan to use Clindamycin. Communicated this with circulating RN.
[2019-03-05] MEDS: CLINDAMYCIN 900 MG/50 ML PIGGYBACK 50 MG IV ×2 (07:50→17:39)
--- NOTE | 2019-03-05 07:51 | PM.PREOP ---
Pre-operative Note Interval Note History & Physical reviewed/Exam performed by Physician: Yes Changes to H&P: No
--- NOTE | 2019-03-05 08:39 | SUR.OPER ---
Supine, head on gel donut. Arms padded with gel pads, tucked at sides, towel roll under shoulders. Safety belt at thigh. Legs uncrossed. tape from shou;ders to foot of bed to provide traction to pull shoulders away from ears.
[2019-03-05] MEDS: ACETAMINOPHEN IV 1,000 MG/100 ML VIAL 400 MG IV (09:36)
--- NOTE | 2019-03-05 11:06 | P.OP_ITS ---
Operative Date/Time/Diagnoses Date of procedure: 03/05/19 Time of procedure: 08:06 Pre-op diagnosis: 1. C3-4, C6-7 spinal stenosis 2. Previous fusion C4-6 with retained hardware 3. Cervical radiculopathy Post-op diagnosis: same Procedure & Clinicians Procedure: 1. C3-4, C6-7 anterior cervical discectomy and fusion 2. C3-4, C6-7 anterior cage placement 3. C3-4, C6-7 anterior instrumentation with plate and screw placement 4. C4-6 anterior instrumentation removal with removal of plate and screws Same procedure as scheduled: Yes Indications: Patient has been having chronic neck pain and worsening cervical radiculopathy. Patient had prior C4-6 anterior cervical diskectomy and fusion with retained hardware. Patient failed multiple conservative management with worsening pain weakness and numbness in her upper extremity. Patient has been having difficulty performing activity of daily living. After discussing risks benefits of treatment options, patient elected proceed with surgery. Patient will be scheduled for hardware removal and fusion of C3-4 and C6-7 levels with hardware placement. Surgeon: Felix Doshi Forensic Toxicologist: Aditi Parks Click Yes if Unassisted: No Anesthesia Type: General Operative Notes Closure Type: primary Specimen(s): none sent Prosthetic devices, grafts, tissues, transplants, or devices: Globus extend plate, PEEK cages Estimated Blood Loss (mL): 75 Blood products transfused: none Procedure in detail: Patient was seen in the preoperative area. Risks and benefits of the surgery was discussed with the patient. Operative consent was obtained and placed in the chart. Patient was then taken to the operative room. Prophylactic antibiotic was given less than 0.5 hr prior to skin incision. General anesthesia was administered. Patient was placed into a supine position on her radiolucent table. Bilateral shoulders were taped down to allow proper C- arm imaging. Anterior cervical area was prepped and draped in a sterile fashion. Time-out was performed at this time. Using lateral C-arm imaging, the level between C3 and C7 was identified and marked on patient's neck. A oblique incision from midline towards medial border of sternocleidomastoid muscle was made. The platysma muscle was incised in line with skin incision. Metzenbaum scissor was used to develop the plane between the medial border of sternocleidomastoid d and the strap muscles medially. The carotid sheath and its contents were identified and protected behind the hand- held retractor during the entire case. The plane between the carotid sheath and strap muscles was developed with Metzenbaum scissors. Dissection was made down to the level of the anterior cervical fascia. Longus colli muscle was incised on the anterior aspect of vertebral bodies bilaterally from C3-C7. Dissection was made down to the level of the plate from C4-C6. The hardware is exposed. The [employer] to screwdriver was used to remove the screws from the anterior aspect of vertebral bodies of C4,C5 and C6. The plate was removed without any difficulty. The fusion mass was inspected and a solid fusion was identified from C4-C6. Using microsurgical technique and operative microscope, anterior cervical diskectomy was performed at C3-4 and C6-7 level. This was done by removing the disc material, removing the anterior and posterior osteophytes posterior longitudinal ligaments along with performing bilateral foraminotomies at both levels. Patient was found to have severe central and foraminal stenosis at both levels. Patient's stenosis was fully decompressed after decompression was completed. After the diskectomy was completed, 2 anterior interbody cages were obtained. The cages were packed with globus via cell bone grafting material. One cage each along with the bone grafting material was then packed into the interbody spaces from C3-4, C6-C7 with one cage into each interbody level. After the cages were placed, two anterior cervical plate was stabilized to the C3-4, C6-7 vertebrae using 2 screws at each each level. Total 8 screws were placed. After confirming placement of the hardware with AP and lateral C-arm imaging, the screws were locked into the plate using the locking mechanism and torque limiting screwdriver. Two plates were used since there is solid fusion from C4-C6 and there is significant amount of anterior scar tissue and osteophytes making placement of the 1 long plate difficult. After the hardware was placed and confirmed with AP and lateral C-arm imaging, the wound was irrigated with sterile normal saline. The platysma muscle and the subcutaneous tissue was closed with 2-0 Vicryl. The skin was closed with 4-0 Monocryl and Steri-Strips. Patient tolerated the procedure well. Patient was transferred recovery room in stable condition. There were no complications. Complications: none Post-operative Condition: stable Disposition: PACU Plan for aftercare: Admit to inpatient hospital
[2019-03-05] MEDS: fentaNYL 100 MCG/2 ML INJ IV ×4 (11:35→11:50)
[2019-03-05] MEDS: LORazepam 2 MG/ML INJ 0.25 MG IV (12:00)
[2019-03-05] MEDS: hydrOXYzine 50 MG/ML INJ 25 MG IM (12:05)
[2019-03-05] MEDS: INSULIN ASPART 100 UNIT/ML 10ML VIAL SUBCUT (12:24)
[2019-03-05] MEDS: hydrOXYzine pamoate 25 MG CAPSULE PO (14:25)
[2019-03-05] MEDS: KETOROLAC 10 MG TABLET PO (14:25)
[2019-03-05] MEDS: TIZANIDINE 4 MG TABLET PO (14:25)
[2019-03-05] MEDS: SODIUM CHLORIDE 0.9% 1,000 ML 100 ML IV ×2 (14:32→21:41)
[2019-03-05] MEDS: ALBUTEROL 2.5 MG/3 ML NEB (ADULT) INH (15:50)
--- NOTE | 2019-03-05 15:52 | PC.NURSE ---
received from pacu, no pain at the present. Throat is sore and discussed use of ice back which is on the back of her neck and shoulder area. Pacu nurse reports md aware of shoulder pain which is in the rt arm as well and it is thought to be due to positioning on the table, pt specifically denies any c/p. O2 is on at 2L nc as she became sleepy downstairs. Did get some oral toradol and zanaflex with fair relief only. Sitting up in bed, ice pack in place. Cont w/poc.
[2019-03-05] MEDS: diazePAM 5 MG TABLET PO (15:55)
[2019-03-05] MEDS: INSULIN ASPART 100 UNIT/ML INSULN PEN SUBCUT (16:44)
[2019-03-05] MEDS: EPINEPHrine 1 MG/ML AMPUL 0.3 MG IM (17:34)
[2019-03-05] MEDS: diphenhydrAMINE 50 MG/ML VIAL (18:05)
[2019-03-05] MEDS: DEXAMETHASONE 4 MG/ML VIAL IV (18:10)
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
--- NOTE | 2019-03-05 18:56 | P.PN_ITS ---
Exam Vital Signs (past 8 hours): - 03/05/19 11:22 03/05/19 11:27 03/05/19 11:32 Temperature 97 F L Pulse Rate 99 H 98 H 99 H Respiratory Rate 16 16 24 Blood Pressure 144/64 H 149/60 H 151/81 H Pulse Oximetry 96 98 96 03/05/19 11:42 03/05/19 11:55 03/05/19 12:05 Temperature Pulse Rate 100 H 92 H 90 Respiratory Rate 16 10 L 12 Blood Pressure 152/72 H 144/69 H 142/68 H Pulse Oximetry 96 97 96 03/05/19 12:20 03/05/19 12:35 03/05/19 13:00 Temperature 98.0 F Pulse Rate 97 H 100 H 102 H Respiratory Rate 14 14 16 Blood Pressure 147/72 H 146/75 H 163/94 H Pulse Oximetry 96 98 98 03/05/19 13:30 03/05/19 14:00 03/05/19 15:00 Temperature 98.4 F 98.1 F 98.2 F Pulse Rate 101 H 100 H 91 H Respiratory Rate 16 16 16 Blood Pressure 151/73 H 153/111 H 135/89 Pulse Oximetry 97 97 99 03/05/19 15:59 03/05/19 16:00 Temperature 98.1 F Pulse Rate 100 H Respiratory Rate 16 Blood Pressure 128/72 Pulse Oximetry 98 98 Oxygen Delivery Method Room Air Oxygen Flow Rate 3 Assessment & Plan Assessment & Plan narrative: Patient is post op from revision ACDF today. Patient has been doing well until late afternoon when she was complaining of worsening difficulty breathing. She had two prior neck surgeries including previous ACDF and thyroidectomy with significant scarring in her c-spine, which could contribute to her increased soft tissue swelling. manufacturing technician orthopedic surgeon Dr. Alejandre was notified. I was made aware she has increased swelling in her neck with difficulty breathing suspicious for hematoma and mass effect on her airway at 6:12 PM. I saw the patient at 6:40PM in the ICU. On exam, she appears to have labored breathing. I removed her incision dressing and her incision is clean and dry. Her neck soft tissue does appear to have increased swelling. It is not tense on palpation. She is alert and oriented and is able to communicate and answer question appropriately. I discussed my findings with her and her family. I think in order to prevent any worsening of her difficulty breathing and rule out the possibility of post op hematoma causing airway compromise, it is better to bring her back to the OR emergently for a wound exploration and possible evacuation of hematoma. I discussed this plan for surgery with her and family. They understand and agree with the plan. She is being taken emergently for wound exploration and possible evacuation of hematoma.
[2019-03-05] MEDS: DEXAMETHASONE 10 MG/ML VIAL 6 MG IV (19:04)
[2019-03-05] MEDS: GLYCOPYRROLATE 1 MG/5 ML MDV 0.2 MG IV (19:05)
--- NOTE | 2019-03-05 19:24 | PC.NURSE ---
1845 - Pt received from acute care floor. Able to use yankeur for management of own oral secretions. ER Chris AMBROSIO at bedside. Verbal orders obtained. See emar. Dr. Doshi in to assess pt. States that they will be taking pt back to the OR for assessment. Pt anxious, supportive family at bedside. 1909 - Off to OR with Anesthesia.
--- NOTE | 2019-03-05 19:34 | PC.NURSE ---
throat swelling At approx 1540 following shift report. This RN and off going RN DEBBIE called to room by Slade EDGAR stating that pt is coughing and stating she feels like she can't breath. Reggie resp therapist outside of pt's room and immediately came to bedside. pt able to converse and continuous O2 monitor reads 97% on 2L via NC. soft collar removed for pt comfort and swelling is slightly greater to left neck (surgical area) in comparison to when site was checked at 1515 during bedside report. pt seemed quite anxious and was tachypnic. Med medicated with nebulizer by RT at 1550. Call by this RN to at 1546 to update MD about pt's status and that pt states feels like something is stuck in her throat. Pt with multiple allergies and was medicated by previous RN approx 1425 with toradol, vistril and zanaflex. Of these vistril is the only one that pt doesn't take regularly at home. aware of the same. Order obtained for diazepam 5mg PO; administered at 1555. pt able to get some relief from Diazepam and ice pack placed to surgical area to aid with swelling. O2 sats 100 2L NC post resp treatment. Pt wanting to try some of her soft textured dinner when trays arrived approx 1515. pt requested O2 removed and was maintaining sats upper 90s. HOB elevated upright and pt encouraged to take small bites. Bedside suction set up. pt began coughing and suctioned out what was in her mouth. O2 remained upper 90s. pt states throat was feeling more swollen and wasn't able to swallow. This RN asked pt if she felt like she was having an allergic reaction (as she has had many in the past) and she nodded yes. pt's neck is now also noticeably swollen on the right side. pt had order for epi on emar. Medication obtained and administered at 1734. Coordinator at bedside with this RN. Pt states improvement post epi. i feel like I'm breathing better. O2 sats remained upper 90's RA. Coordinator went down to surgery as (infection control preventionist for ) was downstairs dictating. ordered hospitalist consult. Pt's spouse arrived at bedside. this Rn went to hospitalist office and updated (in for ) on pt and reason for consult. MD states will come assess pt. Upon this RN's arrival back to the room was at bedside. Decadron and Benadryl administered per order. pt showing slight relief after medications. arrived at bedside as well. Swelling now moving up pt's throat to her jawline. pt continues with suction to clear secretions. Pt transfered down to ICU room 105 approx 1840 and report given to Bernadette FIELD. and arrived to ICU to assess pt as well.
--- NOTE | 2019-03-05 19:44 | SUR.OPER ---
Supine on padded OR bed, head on donut, arm padded and papoosed at sides, legs uncrossed, safety belt at thigh, tape over blanket over lower legs .
--- NOTE | 2019-03-05 20:18 | PM.OP.1 ---
Operative Date/Time/Diagnoses Date of procedure: 03/05/19 Time of procedure: 19:18 Pre-op diagnosis: 1. Post op cervical revision fusion with worsening labored breathing 2. Possible post op wound hematoma Post-op diagnosis: same Procedure & Clinicians Procedure: 1. Irrigation and debridement of cervical spine wound of skin, muscle 2. Evacuation of post op hematoma Same procedure as scheduled: Yes Indications: Ms. Kelly is post op from cervical revision fusion surgery this morning. This afternoon she started to complain of worsening labored breathing. On exam, she has increased swelling of her soft tissue in her neck. She has labored breathing. I discussed my findings with her and her . I recommended emergent exploration of wound and evacuate possible post op hematoma in order to prevent worsening of her respiratory distress. Patient and her understood and agreed to proceed with surgery. Emergent verbal consent was obtained and she was taken to the operating room emergently. Surgeon: Felix Doshi Content Production Specialist: Sara Alejandre Click Yes if Unassisted: No Anesthesia Type: General Operative Notes Closure Type: primary Applied: drain(s) Estimated Blood Loss (mL): 40 Blood products transfused: none Procedure in detail: Emergency verbal consent was obtained. Patient was taken to the operating room. Intubation was performed using glidescope and her airway has increased swelling compare to prior intubation per anesthesia and my visualization. Patient is placed into supine position on the operating table. Time out was performed. Patient's neck was preped and drapped in the sterile fashion. Patient's previous incision was opened using scissors. There was no subcutaneous hematoma. The deep stitch using 2-0 Vicryl was opened using scissors. There is significant amount of dark clotted hematoma occupying the surgical bed were patient's revision surgery was performed. The hematoma was evacuated using Torres irrigation and Leksell rongeur. There is no active bleeding visualized. The patient has carotid artery was palpated and has good pulse. The implant placed was inspected and they are intact and in good position. Any unhealthy appearing muscle was removed from the wound using pituitary and torres. The wound was irrigated copiously with sterile normal saline. The wound was then reinspected and again no active bleeding was visualized. At this time a JESUS drain was placed deep to the platysma muscle on top of the implant. The subcutaneous tissue along with the platysma muscle was closed with 2-0 Vicryl suture. Patient's skin was then closed with 3-0 Prolene suture. A sterile dressing was applied the patient's neck. He order to allow the patient's airways soft tissue to calm down and decrease in swelling and to prevent any potential for need for re-intubation and irritate patient's airway again, decison was made among acute care physician, anesthesia and myself to keep the patient intubated overnight. We will re-assess patient's airway in the AM and plan to extubate in the AM if no other concerns arise. Complications: none Post-operative Condition: stable Disposition: ICU Plan for aftercare: Admit to ICU for overnight monitoring with patient stay intubated to allow soft tissue swelling to subside. IV steroids given to facilitate the anti-inflammatory process.
[2019-03-05] MEDS: PROPOFOL 1,000 MG/100 ML VIAL 25.974 MG IV (21:41)
[2019-03-05] MEDS: KETOROLAC 30 MG/ML VIAL IV (23:06)
[2019-03-06] VITALS (39 sets, daily range): BP systolic 93–143; BP diastolic 45–93; PULSE 65–95; RESP 18–25; TEMP 36.8–37; O2SAT 93–100
[2019-03-06] MEDS: LORazepam 2 MG/ML INJ 1 MG IV ×4 (01:01→16:21)
[2019-03-06] MEDS: PROPOFOL 1,000 MG/100 ML VIAL 25.974 MG IV ×3 (01:23→09:57)
[2019-03-06] MEDS: CLINDAMYCIN 900 MG/50 ML PIGGYBACK 50 MG IV ×2 (03:09→10:24)
[2019-03-06] MEDS: KETOROLAC 30 MG/ML VIAL IV ×4 (04:28→22:10)
[2019-03-06] MEDS: ACETAMINOPHEN IV 1,000 MG/100 ML VIAL 400 MG IV (04:46)
[2019-03-06 04:54] LABS: Hematocrit 32.1 % (36-46); Hemoglobin 10.8 g/dL (12.0-16.0)
[2019-03-06 05:03] LABS: BUN Creatinine Ratio 22.9 (6-22); Blood Urea Nitrogen 16 mg/dL (7-17); Calcium 8.1 mg/dL (8.4-10.2); Carbon Dioxide 20 mmol/L (22-32); Chloride 108 mmol/L (98-107); Estimated Glomerular Filt Rate > 60.0 mL/min (>60); Glucose 169 mg/dL (80-110); HEMOLYSIS 25 (0-50); Sodium 138 mmol/L (137-145)
[2019-03-06 05:06] LABS: Hemoglobin A1C% w Est Avg Glu 5.6 % (4.0-6.0)
[2019-03-06] MEDS: INSULIN ASPART 100 UNIT/ML INSULN PEN SUBCUT ×3 (05:49→18:53)
--- NOTE | 2019-03-06 06:17 | PC.NURSE ---
Anxiety continued thru night, continually tapping on siderail and wanting to write notes, i.e.did my go home? Is he sleeping? Am I in ICU?. Finally explained I needed to do tasks to care for her rather than let her write notes, as they repeated . Med x1 with 1mg Ativan with some relief of anxiety, Propofol continues at 40mcg, and as long as there is no touching or noise she will sleep. Denies pain. 20ml sanguineous drainage from JESUS.
[2019-03-06 06:49] LABS: Add Manual Diff / Slide Review NO; Basophils Absolute Auto 0 /uL (0-100); Basophils Percent Auto 0.2 % (0-2); Eosinophils Absolute Auto 0 /uL (0-450); Hematocrit 32.3 % (36-46); Hemoglobin 10.9 g/dL (12.0-16.0); Lymphocytes Absolute Auto 1100 /uL (1100-4500); Lymphocytes Percent Auto 13.4 % (25-40); Mean Corpuscular HGB Conc 33.6 % (30-36); Mean Corpuscular Hemoglobin 29.9 PG (26-34); Mean Corpuscular Volume 89.2 fL (80-100); Monocytes Absolute Auto 500 /uL (0-900); Neutrophils Absolute Auto 6600 /uL (1500-7000); Neutrophils Percent Auto 80.4 % (50-75); Platelet Count 217 X10^3/uL (150-400); Red Blood Cell Count 3.63 X10^6/uL (4.0-5.2); Red Cell Distribution Width 13.8 % (11.6-14.8); White Blood Cell Count 8.2 X10^3/uL (4.5-11.0)
[2019-03-06] MEDS: fentaNYL 100 MCG/2 ML INJ 25 MCG IV ×2 (07:38→10:42)
--- NOTE | 2019-03-06 08:06 | P.PN_ITS ---
Exam Vital Signs (past 8 hours): - 03/06/19 00:07 03/06/19 01:22 03/06/19 02:03 Temperature 98.2 F Pulse Rate 92 H 94 H 95 H Respiratory Rate 18 18 18 Blood Pressure 139/93 H 140/75 138/70 Pulse Oximetry 98 97 97 03/06/19 03:00 03/06/19 04:00 03/06/19 05:00 Temperature Pulse Rate 92 H 89 85 Respiratory Rate 18 18 18 Blood Pressure 124/71 129/70 125/71 Pulse Oximetry 97 97 97 03/06/19 06:00 03/06/19 06:22 03/06/19 07:00 Temperature 98.4 F Pulse Rate 84 81 Respiratory Rate 18 18 Blood Pressure 127/65 133/63 Pulse Oximetry 100 97 Oxygen Delivery Method Mechanical Ventilation Oxygen Flow Rate 40 Objective Labs Result Diagrams: 03/06/19 04:30 03/06/19 04:30 Labs: Laboratory Results - last 24 hr 03/05/19 03/06/19 03/06/19 20:45 04:30 04:30 WBC RBC Hgb Hct MCV MCH MCHC RDW Plt Count Neut % (Auto) Lymph % (Auto) Carter % (Auto) Eos % (Auto) Baso % (Auto) Neut # (Auto) Lymph # (Auto) Carter # (Auto) Eos # (Auto) Baso # (Auto) Sodium 138 Potassium 4.0 Chloride 108 H Carbon Dioxide 20 L BUN 16 Creatinine 0.70 Estimated GFR > 60.0 BUN/Creatinine Ratio 22.9 H Glucose 169 H Hemoglobin A1c 5.6 Calcium 8.1 L Nasal Screen MRSA (PCR) Negative for mrsa 03/06/19 03/06/19 04:30 04:30 WBC 8.2 RBC 3.63 L Hgb 10.8 L 10.9 L Hct 32.1 L 32.3 L MCV 89.2 MCH 29.9 MCHC 33.6 RDW 13.8 Plt Count 217 Neut % (Auto) 80.4 H Lymph % (Auto) 13.4 L Carter % (Auto) 6.0 Eos % (Auto) 0.0 L Baso % (Auto) 0.2 Neut # (Auto) 6600 Lymph # (Auto) 1100 Carter # (Auto) 500 Eos # (Auto) 0 Baso # (Auto) 0 Sodium Potassium Chloride Carbon Dioxide BUN Creatinine Estimated GFR BUN/Creatinine Ratio Glucose Hemoglobin A1c Calcium Nasal Screen MRSA (PCR) Assessment & Plan Assessment & Plan narrative: Ms. Kelly is POD#1 s/p ACDF revision and emergent hematoma evacuation. Pt is kept intubated to allow swelling to subside to prevent airway compromise. On exam this morning, patient is intubated and medically sedated. Her dressing is clean and dry. Her neck is soft and without tension on palpation. Her H/H is 1132. Her JESUS drain put out 50cc+50cc per two shifts. I would like to keep her JESUS drain in until less than 25 cc per shift drains out. She can be weaned to extubate per medicine/respiratory protocol. I think she should be kept for another night for observation before discharging once extubated. Start PT/OT once extubated and start oral intake once extubated.
[2019-03-06] MEDS: SODIUM CHLORIDE 0.9% 1,000 ML 100 ML IV ×2 (09:55→21:37)
--- NOTE | 2019-03-06 11:40 | PT-IP ANOTE ---
Dr. Doshi's progress noted from 03/06 0811am stated start PT after extubated. Call ICU and RN reports to hold from PT due to pt's being extubated. Recommended to attempt PT again tomorrow morning.
--- NOTE | 2019-03-06 11:51 | PM.PN.1 ---
Subjective Subjective Date Patient Seen: 03/06/19 Time Patient Seen: 11:52 Interval history: This is a 63-year-old female who is 1 day status post cervical fusion and evacuation of postoperative neck hematoma. She is in the intensive care unit, on a propofol drip with endotracheal intubation and ventilator for airway protection. Her JESUS drain continues to collect recent bleeding. There has been no fever and her vital signs are stable. She has a history of bipolar disorder and conversion disorder and had been very anxious yesterday. Her laboratory testing shows a hemoglobin of 10.9 and a normal BMP with a glucose of 169. Exam Vital Signs (past 8 hours): - 03/06/19 04:00 03/06/19 05:00 03/06/19 06:00 Temperature Pulse Rate 89 85 84 Respiratory Rate 18 18 18 Blood Pressure 129/70 125/71 127/65 Pulse Oximetry 97 97 100 03/06/19 06:22 03/06/19 07:00 03/06/19 08:00 Temperature 98.4 F Pulse Rate 81 76 Respiratory Rate 18 18 Blood Pressure 133/63 97/54 L Pulse Oximetry 97 98 03/06/19 09:00 03/06/19 10:03 03/06/19 11:00 Temperature Pulse Rate 78 75 75 Respiratory Rate 18 18 18 Blood Pressure 107/60 127/71 127/71 Pulse Oximetry 98 98 98 Fraction of Inspired Oxygen 40 Oxygen Delivery Method Mechanical Ventilation Oxygen Flow Rate 0 Narrative Exam Narrative: She is intubated, sedated and appears comfortable. Heart is regular rate and rhythm without murmur. Lungs are clear to auscultation bilaterally. Extremities no ankle edema. She has sequential compression device on both legs. The left neck has a clean dressing without significant swelling. A JESUS is in place with what appears to be moderate amounts of blood that could have been from yesterday. Objective Labs Result Diagrams: 03/06/19 04:30 03/06/19 04:30 Labs: Laboratory Results - last 24 hr 03/05/19 03/06/19 03/06/19 20:45 04:30 04:30 WBC RBC Hgb Hct MCV MCH MCHC RDW Plt Count Neut % (Auto) Lymph % (Auto) Gregory % (Auto) Eos % (Auto) Baso % (Auto) Neut # (Auto) Lymph # (Auto) Gregory # (Auto) Eos # (Auto) Baso # (Auto) Sodium 138 Potassium 4.0 Chloride 108 H Carbon Dioxide 20 L BUN 16 Creatinine 0.70 Estimated GFR > 60.0 BUN/Creatinine Ratio 22.9 H Glucose 169 H Hemoglobin A1c 5.6 Calcium 8.1 L Nasal Screen MRSA (PCR) Negative for mrsa 03/06/19 03/06/19 04:30 04:30 WBC 8.2 RBC 3.63 L Hgb 10.8 L 10.9 L Hct 32.1 L 32.3 L MCV 89.2 MCH 29.9 MCHC 33.6 RDW 13.8 Plt Count 217 Neut % (Auto) 80.4 H Lymph % (Auto) 13.4 L Gregory % (Auto) 6.0 Eos % (Auto) 0.0 L Baso % (Auto) 0.2 Neut # (Auto) 6600 Lymph # (Auto) 1100 Gregory # (Auto) 500 Eos # (Auto) 0 Baso # (Auto) 0 Sodium Potassium Chloride Carbon Dioxide BUN Creatinine Estimated GFR BUN/Creatinine Ratio Glucose Hemoglobin A1c Calcium Nasal Screen MRSA (PCR) Assessment & Plan Assessment & Plan narrative: 1. Cervical fusion and repeat surgery to release pressure from hematoma at surgical site, acute - Followed by Dr. Doshi - She will remain intubated for 12-24 more hours with close monitoring in the ICU. - IV Fentanyl 50 mcg q 2 hours as needed for breathrough pain 2. Diabetes type 2, chronic and with an A1c of 5.6 - Patient normally takes metformin 1000 mg po bid, which is currently being held - Low dose insulin correctional scale q 6 hours while intubated and NPO. This may need to increased due to steriod administration, check glucose q 6 hours. 3. Hypothyroidism, chronic and stable - Currently holding levothyroxine while NPO - Consider IV levothyroxine if she is intubated and/or NPO for several days to avoid becoming acutely hypothyroid 4. Bladder spasms, chronic - Holding her home dose of myrbetriq 50 mg po daily until she can take po medications - She currently has a manley 5. Bipolar disorder/conversion syndrome - Holding home dose of quetiapine 300 mg po at bedtime and desvenlaxafine 50 mg po daily until she can take oral medications planned for tomorrow. - Monitor for norepinephrine-serotonin withdrawal syndrome - May require psychiatry consult if off her psychiatric medications for an extended period of time.
--- NOTE | 2019-03-06 12:02 | OT.IP.TRT ---
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) - Felix Doshi MD Occupational Therapy Treatment Note M3 OT- IP Subjective and Pain Start: 03/06/19 12:01 Freq: Status: Active Protocol: Document 03/06/19 12:01 CGR (Rec: 03/06/19 12:02 CGR [id number]) OT- Subjective Occupational Therapy Visit Type Type Administrative Note Notes Chart reviewed and discussed case with nursing. Pt still intubated and planned for extubation tomorrow AM. Nursing suggested to check on pt tomorrow (03/07) in the PM at earliest for therapy services.
[2019-03-06] MEDS: DEXTROSE 5% WATER 500 ML 21 ML IV (12:12)
--- NOTE | 2019-03-06 12:29 | PC.NURSE ---
Addendum entered by Kelli Quezada R.N. 03/06/19 14:39: update to Dr. Oneal re: [id number] per dayshoft- received order for NS 500cc bolus - ordered and infusing at present Original Note: pt tolerating ventilator well - did need to increase propofol gtt to 50mcg/kg/min ( from 40mcg) as pt becoming increasingly agitatated and nervous- attempting to write notes and conveyed that she was scared but understands the situation- intermittent pain medication, manley patent with marginal uop, remains restrained- gail drain to left neck continues with bloody drainage, footy scd's in place - hopeful for extubation in am
[2019-03-06] MEDS: PROPOFOL 1,000 MG/100 ML VIAL 29.221 MG IV ×4 (12:42→22:10)
[2019-03-06] MEDS: SODIUM CHLORIDE 0.9% 500 ML IV (14:34)
--- NOTE | 2019-03-06 15:43 | DIET.PN ---
Dietary Progress Note Assessment: Pt currently ventilated with plans to extubate tomorrow morning. RD unable to interview pt at this time. HT: 163.2cm WT: 110.6kg BMI: 41.5 Labs: BG 169 (H), A1c 5.6 MNA: 8 at risk [place]: 20 Diet Order: none ordered, pt on vent
[2019-03-06] MEDS: DEXAMETHASONE 10 MG/ML VIAL IV (15:52)
[2019-03-06] MEDS: HYDROMORPHONE 1 MG INJ 0.5 MG IV (19:35)
--- NOTE | 2019-03-06 22:28 | PC.NURSE ---
2200- Shift note: Patient opens her eyes but is not tracking. Patient attempts to communicate with writing but it is mostly unintelligible. Propofol gtt is infusing at 45mic and patient is tolerating well. Uop is adequate. Medicated x1 for pain and x1 for anxiety. Vitals stable.
[2019-03-07] VITALS (17 sets, daily range): BP systolic 104–146; BP diastolic 41–85; PULSE 57–96; RESP 16–21; TEMP 36.6–37.6; O2SAT 94–99
[2019-03-07] MEDS: PROPOFOL 1,000 MG/100 ML VIAL 29.221 MG IV ×2 (01:12→04:19)
[2019-03-07] MEDS: KETOROLAC 30 MG/ML VIAL IV ×4 (04:22→21:35)
[2019-03-07] MEDS: INSULIN ASPART 100 UNIT/ML INSULN PEN SUBCUT (06:23)
[2019-03-07] MEDS: PROPOFOL 1,000 MG/100 ML VIAL 25.974 MG IV (07:33)
[2019-03-07] MEDS: SODIUM CHLORIDE 0.9% 1,000 ML 100 ML IV (07:33)
--- NOTE | 2019-03-07 08:12 | RT ---
RN CALLED AND DOCTOR WAS AT BEDSIDE AND REQUESTED THAT THE PT BE EXTUBATED. PT WAS SUCTIONED AND EXTUBATED AT 0750. PT WAS PLACED ON 3L/M O2 VIA NC. SATS 98% HR 92 RR 20 PT IS DOING WELL AND USING SUCTION ON HER OWN. PT HAS A STRONG COUGH WITH MODERATE CLEAR/WHITE SECRETIONS.
[2019-03-07] MEDS: HYDROMORPHONE 0.5 MG INJ IV ×2 (08:22→13:42)
--- NOTE | 2019-03-07 08:48 | PC.NURSE ---
Addendum entered by Kelli Quezada R.N. 03/07/19 13:24: pt doing well- floor care no tele status with saline lock x 1, tolerating room air well- taking po fair, manley removed and she has voided both bowels/bladder since removal- oxycodone effective for pain- drain to remain overnoc per ortho- tolerated pt well Original Note: PT EXTUBATED AT 0740 WITH MD/RT and this RN- INITIALLY TO 4L O2 NC, THEN SWIFTLY DECREASED TO 2L IN WHICH SHE HAS SPO2 97% MY INTENTION IS TO WEAN THIS TO OFF- VOICE WEAK AND SCRATCHY- JESUS DRAIN INTACT WITH LESS DRAINAGE NOTED IT IS MORE SEROUS IS CONSISTENCY.
--- NOTE | 2019-03-07 09:40 | PM.PNPO.1 ---
Subjective Subjective Date Patient Seen: 03/07/19 Time Patient Seen: 09:40 Interval history: Patient's pain is moderate. Denies fever chills. No nausea vomiting. The she states her right shoulder sore. Does not recall any injury. Exam Vital Signs (past 8 hours): - 03/07/19 02:00 03/07/19 03:04 03/07/19 04:12 Temperature Pulse Rate 64 61 57 L Respiratory Rate 18 18 18 Blood Pressure 111/65 117/55 L 112/54 L Pulse Oximetry 97 96 96 03/07/19 05:09 03/07/19 06:17 03/07/19 07:41 Temperature 97.9 F 98.1 F Pulse Rate 74 68 Respiratory Rate 21 18 Blood Pressure 118/66 129/62 Pulse Oximetry 99 97 03/07/19 08:00 03/07/19 08:26 Temperature 99.0 F Pulse Rate 91 H 96 H Respiratory Rate 20 17 Blood Pressure 108/85 108/85 Pulse Oximetry 97 97 Fraction of Inspired Oxygen 40 Oxygen Delivery Method Nasal Cannula Oxygen Flow Rate 2 Narrative Exam Narrative: Patient was extubated this morning. She is resting comfortably in bed in no apparent distress. She is alert and oriented. The drain is intact. Dressing clean, dry and intact. Generalized weakness bilateral upper extremities. Sensation grossly intact to light touch bilateral upper extremities. Objective Labs Result Diagrams: 03/06/19 04:30 03/06/19 04:30 Assessment & Plan Post-op Postoperative Procedures: Procedures Operation Date: 03/05/19 07:45 Actual Procedures Side Surgeon p C3-4,C6-7 ACDF, C4-6 anterior instrumentation removal & re-insertion , C3-7 anterior instrumentation Felix Doshi MD Operation Date: 03/05/19 19:00 Actual Procedures Side Surgeon p Irrigation and Drainage, Debridement of post op hemotoma cervical neck Left Felix Doshi MD Patient postop day 2 status post ACDF revision and emergent hematoma evacuation. Patient extubated this morning. Drain output was 12 cc last shift. If it continues to remain less than 25 cc I per shift drain can be removed. Work with PT/OT. Discharge home in the next day or 2 when medically stable per Medicine.
--- NOTE | 2019-03-07 09:54 | CM.DANOTE ---
Patient is a 63 year old female who was admitted on 03/05/19 for Cervical Fusion. Pt has [facility] and [facility] for insurance and her PCP is Dr. Ericka Dukes. EMR was reviewed. Per MD, pt tolerated her surgical procedure well but needed to return to surgery and vented due to lesion and was able to be successfully extubated today. Per RN, pt currently having ice chips with plan to advance diet today. PT/OT pending and to work with pt today. SW met bedside with pt and explained role and pt able to softly talk and was alert and oriented. Pt confirms she lives in [place] with her supportive spouse and 18 yo grandson. Pt states she herself has some memory issues and has [facility] and receives [facility] but unsure how many hours a month. Pt has a hx of SNF but not HH and pt states she does not feel she needs SNF or wants it and preference is home and agreeable to HH if needed. SW spoke to spouse via phone to update him on pt status and pt request he come visit. Plan: SW to follow for PT/OT eval this afternoon for d/c planning needs. Unable to fax clinicals to [facility] today. VAMSI Garcia Discharge Planning/Care Management CM Discharge Assessment Start: 03/07/19 09:50 Freq: Status: Active Protocol: Document 03/07/19 09:50 BF (Rec: 03/07/19 09:53 [id number]) Discharge Planning Assessment Assigned Chancellor VAMSI Arthur DPOA/Assigned Designee Name spouse Dallin Contact Information [phone] Advance Directives? Yes Advance Directives on File No History Provided By Patient,Significant Other, Medical Record Has Patient been admitted in last 30 No days? Prior Living Arrangements Mobile home Household Members spouse,family Type of transporation used prior to Relies on Others admit Independent with ADL's No Is patient alert and oriented? Yes Needs Assistance With Meal Prep,Managing Medications ,Home Chores / Shopping Caregiver for Another No: 18 yo grandson at home as well Name of Agency [facility] Contact Phone [phone] Clinicals Faxed Yes Patient/Family Preference Home with Home Health Barriers to Discharge No Discharge Plan Home with Home Health Transportation Arrangement Family/caregiver can provide transportation. Referrals Initiated None needed Additional Comment Waiting for PT/OT eval to determine needs Whiteboard Updated in Patient Room with Yes name and ext. # of Chancellor Review Status In Process Please Provide Date Initial DC 03/07/19 Assessment Was Performed Next Review Type Continued Stay Review Pre-Anesthesia Assessment Start: 02/19/19 12:59 Freq: Status: Complete Protocol: Document 02/19/19 12:59 CAB (Rec: 02/19/19 13:54 CAB [id number]) Pre-Anesthesia Assessment PAC Comment Pt is extremely claustrophobia , wants to be medicated prior anything placed over or on face. Pt has pain stimulator implanted in right hip, will bring control to turn off prior to surgery Patient Also Known As (AKMarshal) Daphnie Patient Information Reviewed Via Phone Assessment Assessment Completed With Patient Diagnostic Results BMP/CMP,CBC,EKG Comment Outside Labs/EKG scanned to record Primary Care Provider Aashish Aponte Seen Specialist in Last 12 Months Yes Specialist Seen Slide Maker,Orthopedist,Other Comment Pain/headache specialist @ , pain clinic in [place] Primary Language Lao Preferred Language Lao Height 163.2 cm Weight 109.769 kg Body Mass Index (BMI) 41.2 Hearing Ability Normal Visual Assist Glasses Dentition Type Full- Upper & Lower Barriers to Learning Memory Other Aids No Comment Hx of conversion reaction disorder Hx Anesthesia Reactions No Hx Family Anesthesia Reaction No Hx Malignant Hyperthermia No Hx Blood Transfusions No Campaign Analyst No alcohol intake never Smoking Status Former smoker Tobacco type cigarettes how long ago did patient quit smoking 1975 Substance Use Type does not use,opiates, painkillers Pain Present Pain Reported Musculoskeletal Symptoms Abnormal Gait,Back Pain, Difficulty Walking,Joint Pain, Limited Range of Motion,Muscle Cramps,Muscle Spasms,Muscle Weakness,Neck Pain,Numbness, Radiating Pain into Limb, Tingling History of Falling (Recent or History of Yes ) Patient is completely paralyzed or No completely immobile Prosthesis or Orthotic Device Cane,Front Wheel Walker, Wheelchair Mental Status Oriented to own ability Is patient on oxygen? No Does patient have SINCLAIR/SOB Yes Hx Sleep Apnea Yes: No CPAP/claustrophobia CPAP/BIPAP use prescribed not used Suspected Sleep Apnea No Currently Taking a Beta Tina No Can You Climb a Flight of Stairs Without No: Dyspnea after walking 1/2 SOB block Hx Chest Pain Yes: Stable, non-exertional after spicy foods Hx SOB Yes: Dyspnea after walking 1/2 block Hx Syncope or Dizziness Yes Has a Propellant Charge Loader Yes: Dr. Luna Cardiac Testing Yes: 2017 Echo/Stress to med records to scan Hx Pacemaker/ICD No Pacemaker Rep Required? 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 Marital Status Lives With spouse,family Prior Living Arrangements Mobile home Number of Floors (Floors) One Floor Support System Caregiver,Child/Children, Spouse Does the Patient Have Assistance After Yes Surgery Patient Discharge Plan Description Return Home Comment Pt advised 1-4 day length of stay per surgeon Feels Safe in Current Environment Yes Been Physically Hurt or Threatened By a No Person in Current Environment Do you have thoughts of harming yourself None or others? Are you currently considering suicide? No Do you have a plan to hurt yourself or No Plan others? Do You Have Any Spiritual Beliefs That No May Affect Your HC Choices? Do You Have Any Cultural Practices That No May Affect Your HC Choices? Comment LDS Who Can We Speak to About Patient's Care Everyone except Nazainn or Leila Identifying Code for Release of Patient Declines to issue Information Health Care Proxy/Next of Kin Amber Kelly Health Care Proxy Emergency Contact Name Amber Kelly Emergency Contact Advance Directives? Yes Advance Directives on File No Requested Patient Bring Advanced Yes Directives DOS Power of Equity Holder Yes Power of Equity Holder Name Adrien Kelly Power of Equity Holder PAC Instructions Durable medical equipment, Medications to take/avoid, Nasal antibiotic,No ETOH/ petroleum product on skin DOS, NPO,Post-op transportation,Pre -surgical wash,Sturdy shoes/ comfortable clothes,Do not bring valuables and remove jewelry
[2019-03-07] MEDS: TIZANIDINE 4 MG TABLET PO (11:00)
[2019-03-07] MEDS: CYANOCOBALAMIN (VITAMIN B-12) 500 MCG TABLET 1000 MCG PO (11:01)
[2019-03-07] MEDS: MONTELUKAST 10 MG TABLET PO (11:01)
[2019-03-07] MEDS: LEVOTHYROXINE 125 MCG TABLET PO (11:01)
[2019-03-07] MEDS: CHOLECALCIFEROL (VITAMIN D3) 1,000 UNIT TABLET 2000 UNIT PO (11:02)
[2019-03-07] MEDS: METFORMIN HCL 500 MG TABLET 1000 MG PO ×2 (11:02→21:07)
[2019-03-07] MEDS: MAGNESIUM OXIDE 400 MG TABLET PO (11:02)
[2019-03-07] MEDS: OXYCODONE IR 5 MG TABLET PO (11:03)
[2019-03-07] MEDS: MULTIVITAMIN 1 TABLET 1 TAB PO (11:03)
[2019-03-07] MEDS: DOCUSATE 100 MG CAPSULE PO ×2 (11:04→21:09)
[2019-03-07] MEDS: PANTOPRAZOLE 40 MG TABLET PO (11:04)
--- NOTE | 2019-03-07 11:24 | PM.PN.1 ---
Subjective Subjective Date Patient Seen: 03/07/19 Time Patient Seen: 11:24 Interval history: She is seen today for extubation. There are no signs of swelling in the neck and her JESUS drain is putting out less than 25 mL per shift. She is successfully extubated with the assistance of respiratory therapy, waking up as soon as the propofol was turned down, sitting up in bed and talking. She also has diabetes mellitus, hypothyroidism and bipolar disorder. Exam Vital Signs (past 8 hours): - 03/07/19 04:12 03/07/19 05:09 03/07/19 06:17 Temperature 97.9 F Pulse Rate 57 L 74 68 Respiratory Rate 18 21 18 Blood Pressure 112/54 L 118/66 129/62 Pulse Oximetry 96 99 97 03/07/19 07:41 03/07/19 08:00 03/07/19 08:26 Temperature 98.1 F 99.0 F Pulse Rate 91 H 96 H Respiratory Rate 20 17 Blood Pressure 108/85 108/85 Pulse Oximetry 97 97 Fraction of Inspired Oxygen 40 Oxygen Delivery Method Nasal Cannula Oxygen Flow Rate 2 Narrative Exam Narrative: Initially she is intubated and sedated but when the ET tube is removed she begins talking as soon as the propofol wears off and maintains good saturations and interaction. Heart is regular rate and rhythm without murmur Lungs are clear to auscultation bilaterally Extremities have no ankle edema Left neck incision appears intact with clean dressing in place and minimal drainage in the JESUS drain. Objective Labs Result Diagrams: 03/06/19 04:30 03/06/19 04:30 Assessment & Plan Assessment & Plan narrative: 1. Cervical fusion and repeat surgery to release pressure from hematoma at surgical site, acute - Followed by Dr. Doshi -successfully extubated this morning without any complications or signs of recurrent neck swelling 2. Diabetes type 2, chronic and with an A1c of 5.6 - Patient normally takes metformin 1000 mg po bid, which is now being resumed, along with a diabetic diet 3. Hypothyroidism, chronic and stable -resuming levothyroxine now that she is extubated. 4. Bladder spasms, chronic - Resume Myrbetriq when she has it available again. - She has had a manley catheter. 5. Bipolar disorder/conversion syndrome - Resume home dose of quetiapine 300 mg po at bedtime and desvenlaxafine 50 mg po daily She will be discharging home soon. The hospitalist medicine service will be signing off, and will remain available for assistance if new medical issues arise. Discharge is anticipated to be tomorrow per Orthopedics.
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
--- NOTE | 2019-03-07 13:26 | PC.NURSE ---
EVENT NOTE- DURING DANGLE PART OF INITIAL PT ASSESSMENT PT BECAME LIMP AND NON VERBAL WAS ABLE TO MAINTAIN HER SITTING POSITION, HER SPOUSE AT BEDSIDE REPORTS THESE BLACK-OUTS HAPPEN FEW TIMES WEEKLY AND JUST REQUIRE SUPPORTIVE CARE- SHE DOES AWAKE WITH A START AND THERE WERE NO CHANGES IN HER HR/BP- SHE BECAME TEARFUL FOLLOWING EPISODE AND REPORTS FEELING EMBARASSED-
--- NOTE | 2019-03-07 14:00 | PC.NURSE ---
MEDICATED WITH 0.5MG IV DILAUDID IN WHICH SHE GASPED AND BECAME QUITE UPSET DUE TO ALLERGY- THIS WAS A DOCUMENTED ALLERGY WITH REACTION OF NAUSEA/RASH- THIS MEDICATION D/C'D FROM JUL AND EXPLAINED SITUATION TO PT AND MD AND PHARMACY
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
--- NOTE | 2019-03-07 14:27 | PT-IP ANOTE ---
Per OT, pt just returned to be with OT. Will see in pt in AM.
--- NOTE | 2019-03-07 16:06 | PC.NURSE ---
At request of RN waiting on Q4 vitals to let pt sleep.
[2019-03-07] MEDS: OXYCODONE IR 5 MG TABLET 10 MG PO ×2 (17:09→21:06)
[2019-03-07] MEDS: QUETIAPINE 100 MG TABLET 300 MG PO (21:07)
[2019-03-07] MEDS: SENNOSIDES 8.6 MG TABLET 17.2 MG PO (21:08)
[2019-03-07] MEDS: ATORVASTATIN 20 MG TABLET 40 MG PO (21:08)
[2019-03-07] MEDS: SODIUM CHLORIDE 0.9% FLUSH 10 ML IV (21:34)
[2019-03-08] MEDS: OXYCODONE IR 5 MG TABLET 10 MG PO ×4 (00:47→14:49)
[2019-03-08 00:51] VITALS: BP 130/57; PULSE 94; RESP 18; TEMP 36.7; O2SAT 94
--- NOTE | 2019-03-08 01:00 | PC.NURSE ---
States can not drink water as it is too thick, wants apple juice.
[2019-03-08] MEDS: KETOROLAC 30 MG/ML VIAL IV ×2 (04:30→09:50)
[2019-03-08 04:52] VITALS: BP 105/57; PULSE 78; RESP 16; TEMP 36.8; O2SAT 94
[2019-03-08] MEDS: LEVOTHYROXINE 125 MCG TABLET PO (05:57)
[2019-03-08 08:00] VITALS: BP 101/43; PULSE 71; RESP 15; TEMP 36.6; O2SAT 98
[2019-03-08] MEDS: METFORMIN HCL 500 MG TABLET 1000 MG PO (08:25)
[2019-03-08] MEDS: MULTIVITAMIN 1 TABLET 1 TAB PO (08:26)
[2019-03-08] MEDS: PANTOPRAZOLE 40 MG TABLET PO (08:26)
[2019-03-08] MEDS: SODIUM CHLORIDE 0.9% FLUSH 10 ML IV (08:27)
[2019-03-08] MEDS: MONTELUKAST 10 MG TABLET PO (08:27)
[2019-03-08] MEDS: CYANOCOBALAMIN (VITAMIN B-12) 500 MCG TABLET 1000 MCG PO (08:28)
[2019-03-08] MEDS: MAGNESIUM OXIDE 400 MG TABLET PO (08:31)
[2019-03-08] MEDS: CHOLECALCIFEROL (VITAMIN D3) 1,000 UNIT TABLET 2000 UNIT PO (08:31)
--- NOTE | 2019-03-08 08:31 | PC.NURSE ---
Addendum entered by Lo Yepez R.N. 03/08/19 14:17: Loose stool x2 BSC. Addendum entered by Lo Yepez R.N. 03/08/19 13:44: Pt up ambulating with PT. Reports stairs into home for d/c. PT plan to d/c home after successful completion of stairs and training with . 1400 plan. Continue with pain control oxycodone 10mg PRN. IV cath patent. Dr Stout into see Pt and removed JESUS drain to L neck. Gauze roll to neck so no adhesive used on skin. Original Note: AM shift Pt is A/o x3, reports being tired this AM. Pain 10/27, medicated with Oxycodone. JESUS drain compressed and draining, serosang. fluid. Some increased Pain with swallow, dietsoft to accomidate. IV SL. Soft collar in place. CMS good. Assist of 1 up BSC/recliner.
--- NOTE | 2019-03-08 10:15 | PM.PNPO.1 ---
Subjective Subjective Date Patient Seen: 03/08/19 Time Patient Seen: 10:15 Interval history: Feeling overall fatigued but pain under control. Exam Vital Signs (past 8 hours): - 03/08/19 04:52 03/08/19 08:00 Temperature 98.2 F 98 F Pulse Rate 78 71 Respiratory Rate 16 15 Blood Pressure 105/57 L 101/43 L Pulse Oximetry 94 98 Fraction of Inspired Oxygen 40 Oxygen Delivery Method Room Air Oxygen Flow Rate 0 Const Orientation: alert and oriented x3 Back/Spine/Pelvis Other: Dressing CDI. Drain over the last 3 shifts. No swelling. Objective Labs Result Diagrams: 03/06/19 04:30 03/06/19 04:30 Assessment & Plan Post-op Postoperative Procedures: Procedures Operation Date: 03/05/19 07:45 Actual Procedures Side Surgeon p C3-4,C6-7 ACDF, C4-6 anterior instrumentation removal & re-insertion , C3-7 anterior instrumentation Felix Doshi MD Operation Date: 03/05/19 19:00 Actual Procedures Side Surgeon p Irrigation and Drainage, Debridement of post op hemotoma cervical neck Left Felix Doshi MD I removed her drain. There was no bleeding from this. Dressing was changed. We will mobilize her with physical therapy. If she is stable, discharge home.
--- NOTE | 2019-03-08 10:16 | PM.DS.1 ---
History of Present Illness History of Present Illness Date Patient Seen: 03/08/19 Time Patient Seen: 10:17 Chief complaint: Cervical Fusion Anterior Narrative: 63-year-old female with cervical stenosis. She has a history of a C4 through 6 ACDF about 10 years ago. She had failed conservative management with therapy and medication and had severe neck and arm pain. Discharge Providers Provider Date of admission: 03/05/19 06:01 Discharge Date: 03/08/19 Primary care physician: Rafy Martin Consults: 02/19/19 13:54 Consult to Respiratory Therapy Evaluate & Treat Comment: Cerv fusion 03/05, PARAS no CPAP/Claustrophobia Physician Instructions: Evaluate and treat Consult to Rotary Drum Dyer Routine Comment: 03/05/19 07:10 Consult to Respiratory Therapy Evaluate & Treat Comment: Physician Instructions: Evaluate and treat 03/05/19 12:39 Consult to Discharge Planning Routine Comment: 03/05/19 14:10 Consult to Occupational Therapy Evaluate & Treat Comment: Physician Instructions: Evaluate and treat Consult to Physical Therapy Evaluate & Treat Comment: Physician Instructions: Evaluate and Treat 03/05/19 14:52 Consult to Dietitian, Adult Routine Comment: Reason For Exam: Weight loss 03/05/19 17:56 Consult to Hospitalist Service Routine Comment: Consulting Provider: Rhonda Chen Reason for consultation: allergic reaction 03/05/19 21:04 Consult to Occupational Therapy Evaluate & Treat Comment: Physician Instructions: Evaluate and treat Consult to Physical Therapy Evaluate & Treat Comment: Physician Instructions: Evaluate and Treat Consult to Respiratory Therapy Evaluate & Treat Comment: Ventilator management per protocol Physician Instructions: Evaluate and treat Discharge provider: Rigoberto Stout MD Summary Hospital Course Discharge Diagnosis: Cervical stenosis Hospital Course: She is brought to the operating room on 03/05/[address] Doshi where she underwent anterior plate removal and anterior diskectomy and fusion at the levels above and below at C3-4 and C6-7. She had significant swelling and hematoma later on that afternoon and was brought back to the operating room that evening for a hematoma evacuation and exploration. She was admitted intubated overnight into the ICU. She was extubated on 03/07/2019. Her drain output decreased and was removed on 03/08/2019. She was not having significant difficulty with swallowing. There is no evidence of any recurrent hematoma. Status at Discharge Cognitive/behavioral status at discharge: oriented Functional status at discharge: uses cane/walker Overall status at discharge: patient is progressing back to baseline Exam Vital Signs (past 8 hours): - 03/08/19 04:52 03/08/19 08:00 Temperature 98.2 F 98 F Pulse Rate 78 71 Respiratory Rate 16 15 Blood Pressure 105/57 L 101/43 L Pulse Oximetry 94 98 Fraction of Inspired Oxygen 40 Oxygen Delivery Method Room Air Oxygen Flow Rate 0 Const Orientation: alert and oriented x3 Back/Spine/Pelvis Other: CDI. 5/5 motor both upper extremities except for 4/5 bilateral triceps, unchanged Objective Labs Result Diagrams: 03/06/19 04:30 03/06/19 04:30 Discharge Plan Discharge Plan Patient Disposition: Home Discharge comment: Follow-up [address] Doshi Discharge Med Rec/Prescriptions Prescriptions: New docusate sodium [DOK] 100 mg Capsule 100 mg PO BID PRN (Reason: constipation) Qty: 20 RF: 0 oxycodone 5 mg Tablet See Rx Instructions .ROUTE .COMPLEX PRN (Reason: Pain, Moderate (4-6)) Qty: 30 RF: 0 Continued montelukast [Singulair] 10 MG tablet 10 mg PO QAM Qty: 0 RF: 0 levothyroxine 137 MCG tablet 125 mcg PO DAILY Qty: 0 RF: 0 cholecalciferol (vitamin D3) [Vitamin D3] 2,000 unit Capsule 2,000 unit PO DAILY Qty: 0 RF: 0 levocetirizine 5 MG tablet 5 mg PO DAILY Qty: 0 RF: 0 multivitamin [Multiple Vitamins] 1 EACH tablet 1 tab PO QDAY Qty: 0 RF: 0 cyanocobalamin (vitamin B-12) 1,000 MCG tablet extended release 1,000 mcg PO QDAY Qty: 0 RF: 0 magnesium oxide 400 MG tablet 400 mg PO QDAY Qty: 0 RF: 0 omega 2-tqt-cxp-fish oil [Fish Oil] 1,000 MG capsule 1,000 mg PO QDAY Qty: 0 RF: 0 epinephrine [EpiPen] 0.3 mg/0.3 mL Auto-Injector 0.3 mg IM SEEINSTR PRN (Reason: Anaphylxis) RF: 0 albuterol sulfate [Ventolin HFA] 90 mcg/actuation Hfa Aerosol Inhaler 2 puff INHALATION Q4H PRN (Reason: Wheeze) RF: 0 albuterol sulfate 2.5 mg /3 mL (0.083 %) Solution For Nebulization 2.5 mg INHALATION QID PRN (Reason: Shortness Of Breath) RF: 0 oxycodone-acetaminophen [Percocet] 5-325 mg Tablet 1 tab PO QID RF: 0 tizanidine 4 mg Capsule 4 mg PO TID PRN (Reason: Muscle spasms) RF: 0 Myrbetriq 50 mg Tablet Extended Release 24 Hr 50 mg PO DAILY RF: 0 Ajovy 225 mg/1.5 mL Syringe 225 mg SUBCUT QMONTH RF: 0 potassium 99 mg Tablet 99 mg PO DAILY RF: 0 quetiapine 300 mg tablet 300 mg PO BEDTIME RF: 0 omeprazole 20 mg capsule,delayed release(DR/EC) 40 mg PO DAILY RF: 0 desvenlafaxine succinate 50 mg tablet extended release 24 hr 50 mg PO BEDTIME RF: 0 metformin 500 mg tablet 1,000 mg PO BID RF: 0 atorvastatin 40 mg tablet 40 mg PO BEDTIME RF: 0 rizatriptan [Maxalt-QUALITY ASSURANCE PROJECT MANAGER] 10 mg tablet,disintegrating See Rx Instructions PO .COMPLEX Qty: 10 RF: 2 ketorolac 10 mg tablet 10 mg PO Q6H PRN (Reason: pain) 5 Days Qty: 20 RF: 2 ketorolac 60 mg/2 mL cartridge 30 mg IM Q6-8H PRN (Reason: pain) Qty: 20 RF: 2 Follow up/Referrals: Rafy Martin [Primary Care Provider] - Provider Discharge Instructions Diet: Carb-consistent/Diabetic Activity: limited lift 10 lbs soft collar for comfort Skin/Wound/Dressing Care Report to your healthcare provider any signs of infection, such as:: chills, fever, night sweats, increased pain, unusual drainage and unusual redness Dressing: keep dry/intact until f/u Visit Report/Discharge Packet Instructions: DI for Incision and Drainage Stand Alone Forms: Surgery Discharge Discharge Data Primary Care Provider: Rafy Martin
[2019-03-08 11:00] VITALS: BP 116/61; PULSE 77; RESP 16; TEMP 36.2; O2SAT 100
--- NOTE | 2019-03-08 12:06 | PT.IPTN ---
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) - Felix Doshi MD Physical Therapy Treatment Note M2 PT-IP Current Condition Start: 03/06/19 11:40 Freq: NEEDED Status: Active Protocol: Document 03/07/19 11:30 AB (Rec: 03/07/19 14:20 AB [id number]) Physical Therapy Current Condition Current Condition Evaluation Date 03/07/19 Treatment Diagnosis C3-4, C6-7 ACDF; difficulty in walking Onset Date 03/05/19 Precautions Cervical Spine Precautions Soft Collar for Comfort,No Heavy Lifting,Log Roll M3 PT-IP Subjective Start: 03/06/19 11:40 Freq: NEEDED Status: Active Protocol: Document 03/08/19 12:06 CLB (Rec: 03/08/19 13:00 CLB [id number]) Subjective Physical Therapy Visit Type Type Treatment Note Visit Start Time 11:51 Visit Stop Time 12:06 Total Visit Minutes 15 Number of POWER AND RECOVERY SUPERVISOR Visits 1 Physical Therapy Visit Comments Patient Comments pt agreeable to do PT Therapy Pain Assessment Pain When Pain Assessed At Rest Pain Present Pain Present Pain Reported M4 PT-IP Mobility and Gait Start: 03/06/19 11:40 Freq: NEEDED Status: Active Protocol: Document 03/08/19 12:06 CLB (Rec: 03/08/19 13:00 CLB [id number]) PT-Transfer Assessment Sit to and From Stand Sit to and from Stand Contact Guard Assistance,1 Person Assistance,Use of Upper Extremities Equipment Transfer Assistive Device Gait Belt,Front Wheeled Walker Orthotic/Prosthetic Devices or Brace: Yes Transfers Transfer Destination Chair Transfer Technique pt ambulated using FWW Transfer Ability Level of Assist Contact Guard Assistance,1 Person Assistance,Use of Upper Extremities Gait Assessment Gait Gait Assistance Required: Contact Guard Assist Distance (Feet) 30 Assistive Devices Assistive Device Gait Belt,Front Wheeled Walker Orthotic/Prosthetic Devices or Brace: No Gait Deviations General Gait Pattern Antalgic,Decreased Stride Length,Decreased Feet Clearance Factors Limiting Gait Function Factors Limiting Gait Function Decreased Activity Tolerance, Decreased Sensation,Decreased Strength,Difficulty Following Directions,Limited Range of Motion,Pain,Poor Balance,Poor Safety Awareness Comments Gait Comments Pt able to increase ambulation taking small steps using step through gait pattern. M5 PT-IP Objective Assessments Start: 03/06/19 11:40 Freq: NEEDED Status: Active Protocol: Document 03/07/19 11:30 AB (Rec: 03/07/19 14:20 AB [id number]) Orientation Orientation/Cognition Level of Alertness Alert Orientation Name,Place,Situation Language Function Ability No Deficits Noted Safety Awareness Understands Safety Issues Strength Lower Extremity Strength Assessment Left Impaired Hip 3+/5 Knee 3+/5 Coordination Assessment Gross Coordination Gross Coordination WNL Sensation Assessment Sensation Gross Sensation Right UE Impaired Light Touch Impaired Proprioception (Position) Impaired Sensation Description Numbness,Tingling Muscle Tone Muscle Tone WNL Yes M6 PT-IP Treatment Start: 03/06/19 11:40 Freq: NEEDED Status: Active Protocol: Document 03/07/19 11:30 AB (Rec: 03/07/19 14:20 AB [id number]) Physical Therapy Treatment Education Education Provided Precautions,Weight Bearing Status,Post-Op Packet,Safety M7 PT-IP Assessment and Plan Start: 03/06/19 11:40 Freq: NEEDED Status: Active Protocol: Document 03/08/19 12:06 CLB (Rec: 03/08/19 13:00 CLB [id number]) PT Summary Assessment and Plan Summary Assessment Summary Pt able to increase sit<>stand and gait distance. Pt will need to trial stairs before d/ c. Pt will require 24/7 assist at this time. If pt does not have appropriate assist pt may require SNF rehab before returning home. Goals Bed Mobility Goal Standby Assistance Transfer Goal Standby Assistance,Front Wheeled Walker Gait Goal Standby Assistance,Front Wheel Walker Gait Distance 100 Other Goals up/down 6 steps with R rail SBA Days to Meet Goals 10 Frequency of Treatment Frequency Of Treatment Twice a Day Treatment Plan Physical Therapy Treatment Plan Bed Mobility Training,Transfer Training,Gait Training, Therapeutic Exercise,Balance Retraining,Post Op Education, Discharge Planning,Hot or Cold Pack,Neuromuscular Re-ed, Coordination Retraining,Manual Therapy Recommendations To Nursing Amount of Assist Needed 2 Person Assist Discharge Recommendations PT Discharge Recommendations Home with 10/12 Assist,Home Health,SNF Rehab Equipment Needed for Home Before FWW Discharge
--- NOTE | 2019-03-08 14:44 | PT.IPTN ---
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) - Felix Doshi MD Physical Therapy Treatment Note M2 PT-IP Current Condition Start: 03/06/19 11:40 Freq: NEEDED Status: Active Protocol: Document 03/07/19 11:30 AB (Rec: 03/07/19 14:20 AB [id number]) Physical Therapy Current Condition Current Condition Evaluation Date 03/07/19 Treatment Diagnosis C3-4, C6-7 ACDF; difficulty in walking Onset Date 03/05/19 Precautions Cervical Spine Precautions Soft Collar for Comfort,No Heavy Lifting,Log Roll M3 PT-IP Subjective Start: 03/06/19 11:40 Freq: NEEDED Status: Active Protocol: Document 03/08/19 14:26 CLB (Rec: 03/08/19 14:44 CLB [email or web address]) Subjective Physical Therapy Visit Type Type Treatment Note Visit Start Time 14:26 Visit Stop Time 14:36 Total Visit Minutes 10 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 of 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 Visits 2 Physical Therapy Visit Comments Patient Comments pt agreeable to do PT M4 PT-IP Mobility and Gait Start: 03/06/19 11:40 Freq: NEEDED Status: Active Protocol: Document 03/08/19 14:26 CLB (Rec: 03/08/19 14:44 CLB [id number]) PT-Transfer Assessment Sit to and From Stand Sit to and from Stand Standby Assistance,1 Person Assistance,Use of Upper Extremities Equipment Transfer Assistive Device Gait Belt,Front Wheeled Walker Orthotic/Prosthetic Devices or Brace: Yes Transfers Transfer Destination Chair Transfer Technique pt ambulated using FWW Transfer Ability Level of Assist Contact Guard Assistance,1 Person Assistance,Use of Upper Extremities Gait Assessment Comments Gait Comments Pt declined ambulation due to wanting to conserve energy for her d/c home. 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 M5 PT-IP Objective Assessments Start: 03/06/19 11:40 Freq: NEEDED Status: Active Protocol: Document 03/07/19 11:30 AB (Rec: 03/07/19 14:20 AB [id number]) Orientation Orientation/Cognition Level of Alertness Alert Orientation Name,Place,Situation Language Function Ability No Deficits Noted Safety Awareness Understands Safety Issues Strength Lower Extremity Strength Assessment Left Impaired Hip 3+/5 Knee 3+/5 Coordination Assessment Gross Coordination Gross Coordination WNL Sensation Assessment Sensation Gross Sensation Right UE Impaired Light Touch Impaired Proprioception (Position) Impaired Sensation Description Numbness,Tingling Muscle Tone Muscle Tone WNL Yes M6 PT-IP Treatment Start: 03/06/19 11:40 Freq: NEEDED Status: Active Protocol: Document 03/07/19 11:30 AB (Rec: 03/07/19 14:20 AB [id number]) Physical Therapy Treatment Education Education Provided Precautions,Weight Bearing Status,Post-Op Packet,Safety M7 PT-IP Assessment and Plan Start: 03/06/19 11:40 Freq: NEEDED Status: Active Protocol: Document 03/08/19 14:26 CLB (Rec: 03/08/19 14:44 CLB [id number]) PT Summary Assessment and Plan Summary Assessment Summary Pt was able to stand SBA and climb steps CGA. Pt will be available to assist pt at home and pt continues to have CG come to home 4 hours a day five days a week. Pt declined FWW and stated she would use what she has been using at home (4WW). Goals Bed Mobility Goal Standby Assistance Transfer Goal Standby Assistance,Front Wheeled Walker Gait Goal Standby Assistance,Front Wheel Walker Gait Distance 100 Other Goals up/down 6 steps with R rail SBA Days to Meet Goals 10 Frequency of Treatment Frequency Of Treatment Twice a Day Treatment Plan Physical Therapy Treatment Plan Bed Mobility Training,Transfer Training,Gait Training, Therapeutic Exercise,Balance Retraining,Post Op Education, Discharge Planning,Hot or Cold Pack,Neuromuscular Re-ed, Coordination Retraining,Manual Therapy Recommendations To Nursing Amount of Assist Needed 1 Person Assist Discharge Recommendations PT Discharge Recommendations Home with 10/12 Assist,Home Health,SNF Rehab
== END 2019-03-08 15:01 | disposition home or self-care (01) | DRG 472 ==
LOC: AC 16:59 → ICU 03-06 15:55
PROVIDERS: Nurse Practitioner Family; Admitting Provider Orthopaedic Surgery Orthopaedic Surgery of the Spine; PCP Physician Assistant Medical; Referring Provider Orthopaedic Surgery; Visit Provider Orthopaedic Surgery Orthopaedic Surgery of the Spine
PROC: 0RG20A0 Fusion of 2 or more Cervical Vertebral Joints with Interbody Fusion Device, Anterior Approach, Anterior Column, Open Approach (ICD-10-PCS; principal; 2019-03-05 07:45)
DX: M48.02 Spinal stenosis, cervical region (principal); Z68.41 Body mass index [BMI] 40.0-44.9, adult; M96.840 Postprocedural hematoma of a musculoskeletal structure following a musculoskeletal system procedure; M54.12 Radiculopathy, cervical region; G47.30 Sleep apnea, unspecified; E03.9 Hypothyroidism, unspecified; K21.9 Gastro-esophageal reflux disease without esophagitis; E11.9 Type 2 diabetes mellitus without complications; Z79.4 Long term (current) use of insulin; Z87.891 Personal history of nicotine dependence; E66.01 Morbid (severe) obesity due to excess calories; F31.9 Bipolar disorder, unspecified; F44.9 Dissociative and conversion disorder, unspecified; N32.89 Other specified disorders of bladder; G89.29 Other chronic pain; G43.719 Chronic migraine without aura, intractable, without status migrainosus
CPT/HCPCS: 36415; 72040; 76000; 80048; 82962; 83036; 85014; 85018; 85025; 87797; 94002; 94003; 94640; 94762; 94770; 94799; 97116; 97162; 97166; 97530; 99214; C1776; J0131; J0171; J0330; J1100; J1170; J1200; J1885; J2060; J2250; J2405; J2704; J3010; J3410; J7613

== ENCOUNTER 2019-03-11 08:47 | Inpatient (IN) | payer MEDICARE, OTHER, MEDICAID, SELFPAY ==
[2019-03-05 14:39] VITALS: BMI 40.6
[2019-03-07 06:08] VITALS: PULSE 70; RESP 18; O2SAT 97
[2019-03-11] VITALS (12 sets, daily range): BP systolic 122–156; BP diastolic 70–101; PULSE 20–100; RESP 14–20; TEMP 35.9–36.8; O2SAT 93–100; BMI 41.1
--- NOTE | 2019-03-11 09:02 | DI.RAD.S_ITS ---
PROCEDURE: XR SOFT TISSUE NECK INDICATIONS: throat swelling TECHNIQUE: 2 views of the neck were acquired. COMPARISON: None. FINDINGS: Airway: The airway appears patent but demonstrates minimal narrowing secondary to prevertebral soft tissue swelling described below.. Soft tissues: Prevertebral soft tissues demonstrate thickening measuring up to 3.1 cm anterior to the cervical spine from the levels of T3-T7. The epiglottis and aryepiglottic folds appear normal. No soft tissue gas. Bones: No suspicious bony lesions. Visualized cervical spine is normally aligned. Postoperative changes from ACDF of C3-4 and C6-7. No evidence for hardware complication. Multiple surgical clips project over the anterior lower neck probably from previous thyroidectomy. IMPRESSION: Prevertebral soft tissue thickening/swelling from the levels of C2-3 through C7-T1 with mild airway narrowing near the level of the hyoid. Findings were discussed with Dr. Camacho of the emergency department. The patient had recent cervical fusion procedure requiring surgical intervention for prevertebral hematoma. A CT is scheduled for further evaluation. Dictated by: Jarred Daniel M.D. on 03/11/2019 at 9:28 Approved by: Jarred Daniel M.D. on 03/11/2019 at 9:35
--- NOTE | 2019-03-11 09:13 | PC.NURSE ---
s/p cervical surgery 6 days ago with complications, here today, reporting hurts to swallow, feels like throat is tightening, able to drink and swallow but hurts, last oxycodone at 4am. incision site intact, echymosis, no s/sxs of infections.
[2019-03-11 09:15] LABS: Add Manual Diff / Slide Review NO; Basophils Absolute Auto 100 /uL (0-100); Basophils Percent Auto 0.8 % (0-2); Eosinophils Absolute Auto 300 /uL (0-450); Hemoglobin 11.1 g/dL (12.0-16.0); Lymphocytes Absolute Auto 2500 /uL (1100-4500); Lymphocytes Percent Auto 30.7 % (25-40); Mean Corpuscular HGB Conc 33.7 % (30-36); Mean Corpuscular Hemoglobin 30.3 PG (26-34); Mean Corpuscular Volume 89.9 fL (80-100); Monocytes Absolute Auto 400 /uL (0-900); Monocytes Percent Auto 5.5 % (3-14); Neutrophils Absolute Auto 4700 /uL (1500-7000); Platelet Count 249 X10^3/uL (150-400); Red Blood Cell Count 3.67 X10^6/uL (4.0-5.2)
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
[2019-03-11 09:26] LABS: BUN Creatinine Ratio 14.3 (6-22); Blood Urea Nitrogen 10 mg/dL (7-17); Calcium 8.7 mg/dL (8.4-10.2); Carbon Dioxide 27 mmol/L (22-32); Chloride 107 mmol/L (98-107); Estimated Glomerular Filt Rate > 60.0 mL/min (>60); Glucose 129 mg/dL (80-110); HEMOLYSIS < 15 (0-50); Potassium 3.9 mmol/L (3.4-5.1); Sodium 141 mmol/L (137-145)
[2019-03-11] MEDS: GLYCOPYRROLATE 1 MG/5 ML MDV 0.2 MG IV (09:29)
[2019-03-11] MEDS: DEXAMETHASONE 10 MG/ML VIAL IV ×2 (09:30→20:14)
--- NOTE | 2019-03-11 10:07 | DI.CT.S_ITS ---
PROCEDURE: CT SOFT TISSUE NECK W CON INDICATIONS: recent cervical fusion can't swallow, trouble breathing TECHNIQUE: After the administration of intravenous contrast, 3.0 mm axial sections acquired from the sella to the aortic arch. Additional oblique axial 3.0 mm sections acquired through the pharynx. 3 mm thick coronal and sagittal reformats were generated. For radiation dose reduction, the following was used: automated exposure control. COMPARISON: [facility], CR, XR CERVICAL SPINE 2V OR 3V, 03/05/2019, 9:32. [facility], CT, SOFT TISSUE NECK W CONTRAST, 10/25/2008, 19:56. FINDINGS: Image quality: Excellent. Lymph nodes: No enlarged lymph nodes seen throughout the neck. Vessels: Visualized vasculature appears patent. Neck spaces: It is noted that there is recent history of anterior fusion at C3-4 and C6-7. Retropharyngeal fluid is present at the level of C2 and extending to the level of C7. The greatest collection of fluid is identified at the level of C6 measuring 3.1 cm AP by 4.1 cm transverse. It is noted that fluid tracks to both the left and right of midline, left greater than right and extends anteriorly towards the sternocleidomastoid musculature. Hounsfield units measure 21-30.There is narrowing of the airway at this level. Glands: The parotid and submandibular glands appear normal. Thyroid gland is not visualized with surgical clips present likely related to prior resection. Miscellaneous: Visualized brain and orbits appear normal. Lung apices appear clear. Superficial soft tissues appear normal. Bones: No suspicious bony lesions. Visualized sinuses and mastoids appear unremarkable. IMPRESSION: 1. Low attenuation fluid noted in the retropharyngeal/prevertebral region from the level of C2-C7 as above with airway narrowing. This is felt to be related to postoperative fluid. Hounsfield units are slightly less than expected for hemorrhage. However, developing hematoma, stroma and/or abscess should be considered. The above findings were discussed with Dr. Chris Camacho on 03/11/19 at 10:14 AM. Dictated by: Vandana Arreaga M.D. on 03/11/2019 at 10:14 Approved by: Vandana Arreaga M.D. on 03/11/2019 at 10:23
--- NOTE | 2019-03-11 11:37 | PC.NURSE ---
room still getting clean, rn will call when ready.
[2019-03-11] MEDS: KETOROLAC 30 MG/ML VIAL IV ×2 (13:29→20:48)
[2019-03-11] MEDS: SODIUM CHLORIDE 0.9% 1,000 ML 80 ML IV (13:38)
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
--- NOTE | 2019-03-11 17:12 | P.PN_ITS ---
Subjective Subjective Date Patient Seen: 03/11/19 Time Patient Seen: 18:02 Interval history: 63-year-old female with cervical stenosis. She is status post anterior cervical fusion of C3-C4, and C6-7 on 03/05 that was complicated by a postoperative hematoma which needed to be evacuated the same day as surgery. The patient was discharged on 03/08. She presented to the emergency room today complaining of difficulty swallowing, speaking, and increased pain. She c omplains of pain when swallowing. She is unable to eat food as it is getting stuck in the middle of her throat. She has not had any pain medication since 1pm today. She does not currently have an IV in place. She denies any recent fevers, chills, nasal congestion, cough, chest pain, abdominal pain and she otherwise feels well. She states she was evaluated by speech therapy and was unable to swallow an ice cube and was choking on it. In the ED she ended up with a CT of her neck, which showed a low attenuation fluid in the retropharyngeal/prevertebral region from C2-C7. Dr. Doshi reviewed CT results. Exam Vital Signs (past 8 hours): - 03/11/19 09:42 03/11/19 11:14 03/11/19 11:30 Temperature Pulse Rate 87 91 H 84 Respiratory Rate 16 15 17 Blood Pressure Blood Pressure [Left Arm] 122/73 137/89 132/70 Pulse Oximetry 100 97 97 03/11/19 12:25 03/11/19 15:48 Temperature 98.3 F 97.4 F L Pulse Rate 81 76 Respiratory Rate 18 18 Blood Pressure 144/91 H 152/76 H Blood Pressure [Left Arm] Pulse Oximetry 95 Oxygen Delivery Method Room Air Oxygen Flow Rate 0 Narrative Exam Narrative: Patient In bed in no acute distress. She is alert and oriented x3. Patient had a significant reaction to previous Tegaderm placement around neck. She has an ABD over incision that is CDI. No active drainage from incision, and expected postoperative bruising. Muscle strength 5/5 deltoid, biceps, triceps, wrist extension, and interosseous. Hoffmans negative. Radial pulses symmetrical. Objective Labs Result Diagrams: 03/11/19 09:10 03/11/19 09:10 Labs: Laboratory Results - last 24 hr 03/11/19 03/11/19 09:10 09:10 WBC 8.0 RBC 3.67 L Hgb 11.1 L Hct 33.0 L MCV 89.9 MCH 30.3 MCHC 33.7 RDW 14.0 Plt Count 249 Neut % (Auto) 59.0 Lymph % (Auto) 30.7 [place] % (Auto) 5.5 Eos % (Auto) 4.0 Baso % (Auto) 0.8 Neut # (Auto) 4700 Lymph # (Auto) 2500 [place] # (Auto) 400 Eos # (Auto) 300 Baso # (Auto) 100 Sodium 141 Potassium 3.9 Chloride 107 Carbon Dioxide 27 BUN 10 Creatinine 0.70 Estimated GFR > 60.0 BUN/Creatinine Ratio 14.3 Glucose 129 H Calcium 8.7 Assessment & Plan Post-op Assessment and plan (1) Throat fullness: (2) Post-operative complication: (3) S/P cervical spinal fusion: Assessment and Plan narrative: Patient will continue to wear soft collar tonight. She was reminded multiple times of precautions of neck. Will have IV decadron at [address] Doshi will re-evaluate 03/12 in the morning if patient needs further steroid use. She can continue IV toradol for pain control, and her Cr is WNL. She can take tylenol NM for additional pain control. Once an IV has been placed she will continue fluids. SCDs while in bed. Quality VTE Deep Vein Thrombosis/Pulmonary Embolism Present on Admission: No
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
[2019-03-11] MEDS: ACETAMINOPHEN 650 MG SUPP PR (18:30)
--- NOTE | 2019-03-11 20:40 | PC.NURSE ---
at 1950 Patients spouse comes out of patients room stating, Patient is unable to breath. Upon arrival to patient room, patient was notably in respiratory distress, VSS were elevated, staff assist called. Soft collar removed for inspection for edema to neck/throat, but appeared to be WNL. Mask was placed on patient, O2 turned all the way up, patient had moments of calm and respiratory status was resolved but then patient would go back into respiratory distress. Call placed to Dr. Stout once patient was stabilized. Orders for trans. to ICU for closer monitoring, new med orders for Ativan, see MAR. Patient was trans. to ICU by this nurse and arrived in stable condition.
[2019-03-11] MEDS: LORazepam 2 MG/ML INJ 1 MG IV (20:48)
--- NOTE | 2019-03-11 22:22 | PC.NURSE ---
2030 - Pt to room 101 from Acute Care. Able to talk although raspy, whisper type voice. Pt reports pain 9 of 10. Sats 98% on 4L. Reports SOB, and anxiety with cough. Educated to calm, slow breathing. Pt with soft collar in place. Incision covered loosely with drsg. Incision well approximated. Surrounding skin with abrasions r/t adhesive from prior drsg. Abrasion down upper chest and a large yellowing bruise to chest and bilateral breast. Toradol and ativan given. Educated to treatment plan. Reviewed allergies. Reinforced safety and call light use. Call light in reach.
[2019-03-12] VITALS (10 sets, daily range): BP systolic 130–158; BP diastolic 71–97; PULSE 77–137; RESP 11–22; TEMP 35.8–37.2; O2SAT 93–99
[2019-03-12] MEDS: KETOROLAC 30 MG/ML VIAL IV ×3 (05:05→17:18)
[2019-03-12] MEDS: LORazepam 2 MG/ML INJ 1 MG IV ×3 (05:05→16:10)
[2019-03-12] MEDS: SODIUM CHLORIDE 0.9% 1,000 ML 80 ML IV (05:26)
[2019-03-12 05:41] LABS: Add Manual Diff / Slide Review NO; Basophils Absolute Auto 0 /uL (0-100); Basophils Percent Auto 0.2 % (0-2); Eosinophils Absolute Auto 0 /uL (0-450); Hematocrit 35.2 % (36-46); Hemoglobin 11.9 g/dL (12.0-16.0); Lymphocytes Absolute Auto 800 /uL (1100-4500); Lymphocytes Percent Auto 9.8 % (25-40); Mean Corpuscular HGB Conc 33.7 % (30-36); Mean Corpuscular Hemoglobin 30.2 PG (26-34); Mean Corpuscular Volume 89.6 fL (80-100); Monocytes Absolute Auto 100 /uL (0-900); Monocytes Percent Auto 1.7 % (3-14); Neutrophils Absolute Auto 7600 /uL (1500-7000); Neutrophils Percent Auto 88.3 % (50-75); Platelet Count 228 X10^3/uL (150-400); Red Blood Cell Count 3.92 X10^6/uL (4.0-5.2); Red Cell Distribution Width 13.6 % (11.6-14.8); White Blood Cell Count 8.6 X10^3/uL (4.5-11.0)
[2019-03-12 05:46] LABS: Blood Urea Nitrogen 12 mg/dL (7-17); Calcium 9.1 mg/dL (8.4-10.2); Carbon Dioxide 22 mmol/L (22-32); Chloride 106 mmol/L (98-107); Estimated Glomerular Filt Rate > 60.0 mL/min (>60); Glucose 156 mg/dL (80-110); HEMOLYSIS < 15 (0-50); Magnesium 1.7 mg/dL (1.6-2.3); Potassium 4.2 mmol/L (3.4-5.1); Sodium 139 mmol/L (137-145)
--- NOTE | 2019-03-12 08:35 | PM.PN.1 ---
Exam Vital Signs (past 8 hours): - 03/12/19 03:37 03/12/19 04:00 03/12/19 08:00 Temperature 96.5 F L 97.8 F Pulse Rate 77 81 Respiratory Rate 11 L 13 Blood Pressure 146/89 H 152/79 H Pulse Oximetry 99 93 98 Oxygen Delivery Method Nasal Cannula Oxygen Flow Rate 4 Objective Labs Result Diagrams: 03/12/19 04:55 03/12/19 04:55 Labs: Laboratory Results - last 24 hr 03/11/19 03/11/19 03/12/19 09:10 09:10 04:55 WBC 8.0 8.6 RBC 3.67 L 3.92 L Hgb 11.1 L 11.9 L Hct 33.0 L 35.2 L MCV 89.9 89.6 MCH 30.3 30.2 MCHC 33.7 33.7 RDW 14.0 13.6 Plt Count 249 228 Neut % (Auto) 59.0 88.3 H D Lymph % (Auto) 30.7 9.8 L D [place] % (Auto) 5.5 1.7 L Eos % (Auto) 4.0 0.0 L Baso % (Auto) 0.8 0.2 Neut # (Auto) 4700 7600 H Lymph # (Auto) 2500 800 L [place] # (Auto) 400 100 Eos # (Auto) 300 0 Baso # (Auto) 100 0 Sodium 141 Potassium 3.9 Chloride 107 Carbon Dioxide 27 BUN 10 Creatinine 0.70 Estimated GFR > 60.0 BUN/Creatinine Ratio 14.3 Glucose 129 H Calcium 8.7 Magnesium 03/12/19 04:55 WBC RBC Hgb Hct MCV MCH MCHC RDW Plt Count Neut % (Auto) Lymph % (Auto) [place] % (Auto) Eos % (Auto) Baso % (Auto) Neut # (Auto) Lymph # (Auto) [place] # (Auto) Eos # (Auto) Baso # (Auto) Sodium 139 Potassium 4.2 Chloride 106 Carbon Dioxide 22 BUN 12 Creatinine 0.60 Estimated GFR > 60.0 BUN/Creatinine Ratio 20.0 Glucose 156 H Calcium 9.1 Magnesium 1.7 Assessment & Plan Assessment & Plan narrative: Ms. Kelly is post op s/p revision ACDF and emergent hematoma evacuation post op. She is admitted yesterday with complaints of difficulty swallowing and pain. CT was performed which showed post op effusion without mass effect, most likely serosangunous fluid, not hematoma or infectious fluid. On exam today, she is resting in bed, alert and oriented. Able to communicate clearly. Her neck is supple, no induration, no flucturation, no s/s of infection. There is bruising medial to incision, consistent with post op status. She does have raspy voice and subjective difficulty swallowing. She is neuro intact on exam. I recommend speech therapy evaluation and PT/OT for mobility training. Will advance diet as recommended by speech therapist. Can be transferred to floor if with improved symptoms. Will repeat IV steroids this AM to facilitate calming post op inflammation around cervical soft tissue. Quality VTE Deep Vein Thrombosis/Pulmonary Embolism Present on Admission: No
--- NOTE | 2019-03-12 08:55 | DI.RAD.S_ITS ---
PROCEDURE: FL BARIUM SWALLOW W SPEECH INDICATIONS: reports unable to swallow TECHNIQUE: Examination was conducted in conjunction with speech pathology per standard protocol. In the lateral projection, filming was performed of the patient swallowing. AP projection filming may also be performed with patient swallowing. COMPARISON: None. FINDINGS: Status post C3-C4 ACDF. There is expected perioperative prevertebral soft tissue swelling. Function: The oral preparatory phase appears normal, with proper containment. The subsequent oral propulsive phase, pharyngeal phase, and esophageal phase of swallowing also appear normal with all proffered substances. No laryngotracheal penetration or aspiration. No pathologic vallecular pooling. Morphology: No cricopharyngeal bar is identified. No cervical esophageal webs. No Zenker's diverticulum. No strictures. IMPRESSION: No tracheal aspiration identified. Dictated by: Jameson Chen M.D. on 03/12/2019 at 13:14 Approved by: Jameson Chen M.D. on 03/12/2019 at 13:15
--- NOTE | 2019-03-12 08:59 | CM.IDA ---
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 Yes Advance Directives on File No History Provided By Medical Record Prior Living Arrangements House Household Members spouse,family Comment Lives w/spouse and 18 yo grandson Independent with ADL's No Is patient alert and oriented? 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 Referrals Initiated None needed Review Status In Process
--- NOTE | 2019-03-12 09:48 | PC.NURSE ---
pt tearful and anxious upon initial assessment- assited to br for both bm/urination- urine with foul odor and will send a spec to lab for further work up on next void- d/c of tele due to stable cardiac status and sensitivity to electrodes- removal of o2 and room air spo2 = 96%, anxiety an issue this am but calm speech and encouragement from staff as well her sig other , Dallin is at bedside- planning for BARIUM SWALLOW TO DETERMINE ABILITY TO TAKE PO- NPO UNTIL THEN
--- NOTE | 2019-03-12 13:10 | PM.PN.1 ---
Subjective Subjective Date Patient Seen: 03/12/19 Time Patient Seen: 09:00 Interval history: Daphnie Kelly is a 63-year-old female with PMH of bipolar disorder, COPD, HLD, Depression, DM, hypothyroidism and is status post anterior cervical fusion of C3-C4, and C6-7 on 03/05 that was complicated by a postoperative hematoma which needed to be evacuated. The patient was discharged on 03/08 and presented to the emergency room complaining of difficulty swallowing. She remained stable overnight. She underwent speech evaluation today and was able to tolerate foods without bulk and able to take crushed medications. When taking bulk foods she gags and coughs. She does not feel much improved today and has some shortness of breath when getting up. Exam Vital Signs (past 8 hours): - 03/12/19 08:00 03/12/19 11:18 Temperature 97.8 F 99 F Pulse Rate 81 92 H Respiratory Rate 13 16 Blood Pressure 152/79 H 130/71 Pulse Oximetry 98 99 Oxygen Delivery Method Room Air Oxygen Flow Rate 4 Narrative Exam Narrative: Exam Narrative: GENERAL APPEARANCE: Well developed, well nourished, in no acute distress. SKIN: Inspection of the skin reveals no rashes, ulcerations or petechiae. She appears pale. HEENT: The sclerae were anicteric and conjunctivae were pink and moist. Extraocular movements were intact and pupils were equal, round with normal accommodation. External inspection of the ears and nose showed no scars, lesions, or masses. Lips, teeth, and gums showed normal mucosa. The oral mucosa, hard and soft palate, tongue were unremarkable. NECK: Neck brace in place, improved swelling externally today. CHEST: Normal AP diameter and normal contour without any kyphoscoliosis. LUNGS: Auscultation of the lungs revealed no wheezes, rhonchi, or rales. Her breathing is non-labored. CARDIOVASCULAR: There was a regular rate and rhythm without any murmurs, gallops, rubs. Peripheral pulses were 2+ and symmetric. ABDOMEN: Soft and nontender with normal bowel sounds. No ascites was noted. MUSCULOSKELETAL: There was no tenderness or effusions noted. Muscle strength and tone were normal. EXTREMITIES: No cyanosis, clubbing or edema. NEUROLOGIC: Alert and oriented x 3. Normal affect. Objective Labs Result Diagrams: 03/12/19 04:55 03/12/19 04:55 Labs: Laboratory Results - last 24 hr 03/12/19 03/12/19 04:55 04:55 WBC 8.6 RBC 3.92 L Hgb 11.9 L Hct 35.2 L MCV 89.6 MCH 30.2 MCHC 33.7 RDW 13.6 Plt Count 228 Neut % (Auto) 88.3 H D Lymph % (Auto) 9.8 L D [place] % (Auto) 1.7 L Eos % (Auto) 0.0 L Baso % (Auto) 0.2 Neut # (Auto) 7600 H Lymph # (Auto) 800 L [place] # (Auto) 100 Eos # (Auto) 0 Baso # (Auto) 0 Sodium 139 Potassium 4.2 Chloride 106 Carbon Dioxide 22 BUN 12 Creatinine 0.60 Estimated GFR > 60.0 BUN/Creatinine Ratio 20.0 Glucose 156 H Calcium 9.1 Magnesium 1.7 Assessment & Plan Assessment & Plan narrative: Daphnie Kelly is a 63-year-old female with PMH of bipolar disorder, COPD, HLD, Depression, DM, hypothyroidism and is status post anterior cervical fusion of C3-C4, and C6-7 on 03/05 that was complicated by a postoperative hematoma which needed to be evacuated. The patient was discharged on 03/08 and presented to the emergency room today complaining of difficulty swallowing. There appears to be a fluid collection which has developed which may be leading to her symptoms. 1. Dysphagia and shortess of breath -this appears to be related to a fluid collection as noted above in her CT neck and soft tissue. This is unlikely related to an infectious process, and probably result of her prior surgery and hematoma evacuation. On my exam she does not currently have any stridor and she is not spitting out her saliva. She was given steroids in the emergency room and this is unlikely an allergic reaction. -management as per Orthopedic surgery - patient has been given steroids in the ED, continue decadron and then prednisone upon discharge 2. COPD - - consult respiratory therapy for eval and treat - albuterol prn 3. HLD - - continue home lipitor, can be crushed 4. Depression/Bipolar disorder - resume home medications once tolerating PO, desvenlafaxine, topiramate, quetiapine - restart XR tablets when she can tolerate non-crushed pills, will restart medications as able now that she can tolerate crushed pills. 5. DM, non insulin dependent - - FS ACHS - insulin sliding scale. 6. Hypothyroidism - continue levothyroxine 125 mcg DVT ppx per primary team Medicine will continue to follow. Quality VTE Deep Vein Thrombosis/Pulmonary Embolism Present on Admission: No
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
[2019-03-12] MEDS: ACETAMINOPHEN 325 MG TABLET 650 MG PO (14:55)
[2019-03-12 15:05] LABS: RBC Urine None Seen (0-5/HPF)
[2019-03-12 15:07] LABS: Appearance Urine UA CLOUDY; Bilirubin Urine UA 1+ (NEGATIVE); Color Urine UA ORANGE; Glucose Urine UA NEGATIVE (Negative); Ketones Urine UA 1+ (NEGATIVE); Leukocyte Esterase Urine UA 2+ (NEGATIVE); Nitrite Urine UA NEGATIVE (Negative); Occult Blood Urine UA NEGATIVE (Negative); Protein Urine UA 1+ (Negative); Specific Gravity Urine UA 1.025 (1.000-1.035); Urobilinogen Urine UA 0.2 E.U./dL (0.2)
[2019-03-12 15:24] LABS: pH Urine UA 5.5 (4.5-8.0)
[2019-03-12 15:25] LABS: Amorphous Sediment Urine 1+; Bacteria Urine Many (>30); Culture Indicated Urine Specimen Cultured; Mucus Urine 2+ (Negative); Squamous Epithelial Cell Urine 5-10 /HPF (0-5/HPF); WBC Urine 30-100/HPF (0-5/HPF)
[2019-03-12 15:28] LABS: Ictotest Urine Negative (Negative)
--- NOTE | 2019-03-12 16:44 | ST.SWALLOW ---
Visit Care Team Role Provider Type Rafy Martin Primary Care Provider Non-Staff Specialty: Medical Address: [address] [place] [address], [id number] Email: Martir Oneal DO Other Providers Physician Specialty: Internal Medicine Address: [address] [place] [address], [id number] Email: [email or web address] Chris Camacho DO Emergency Provider Physician Specialty: Emergency Medicine Address: [address] [place] [address], [id number] Email: [email or web address] Felix Doshi MD Admit Provider Physician Attending Provider Specialty: Orthopedic Surgery Address: [address] [place] [address], [id number] Email: [email or web address] Modified Barium Swallow Study HOSE HANDLER Modified Barium Swallow Study Start: 03/11/19 16:37 Freq: Status: Active Protocol: Document 03/12/19 13:39 [facility] (Rec: 03/12/19 15:45 [facility] [id number]) Modified Barium Swallow Study Total Time Visit Start Time 12:30 Visit Stop Time 12:55 Total Visit Minutes 25 Referral Reason for Referral difficulty swallowing Setting Setting Acute Care Patient Information Identification Type Name,ID Wristband Patient History Daphnie Kelly is a 63-year-old female who presented to the ED on 03/11/19 with PMH of bipolar disorder, COPD, HLD, Depression, DM, hypothyroidism and is status post anterior cervical fusion of C3-C4, and C6-7 on 03/05 that was complicated by a postoperative hematoma which needed to be evacuated. The patient was discharged on 03/08 and presented to the emergency room on 03/11 complaining of difficulty swallowing. Primarily, she feels food gets stuck in the middle of her throat. CLinical swallowing evaluation noted severe pharyngeal dysphagia as well as aphonia likely secondary to complications of ACDF surgery with fluid collection at retropharyngeal/prevertebral region. Modified Barium Swallow Study was recommended for further evaluation and for pt safety as well as POC development Subjective Observations Pt was brought to the radiology room in the fluoroscopy chair. She appeared anxious and was provided with a description of the procedure as well as instructions for the procedure . Calm and soft voicing was used to relax the pt and help her to be comfortable. Patient Positioning Position View Lateral Imaging Lateral View Textures Administered Trials Presented Thin Liquid via Spoon,Thin Liquid via Cup,Cano Martin Pena Liquid via Spoon,Cano Martin Pena Liquid via Cup,Pudding Thick Liquid via Spoon,Regular Textures Oral Phase Source: MBSIMP (TM) (C) Bolus Specific Scoring Grid Lip Closure WFL Tongue Control During Bolus Hold WFL Bolus Prep/Mastication WFL Bolus Transport/Lingual Motion WFL A/P Lingual Propulsion Delay No Oral Residue WFL Nasal Regurgitation No Additional Oral Phase Observations OM assessment indicated pt had only her upper denture in place, but she left her lower denture at home. oral phase of swallowing was WFL Pharyngeal Phase Source: MBSIMP (TM) (C) Bolus Specific Scoring Grid Delayed Initiation of Pharyngeal Swallow No Soft Palate Elevation WFL Tongue Base Strength/Range of Motion WFL Residue Along the Tongue Base No Laryngeal Elevation WFL Anterior Hyoid Movement WFL Epiglottic Range of Motion WFL Vallecular Residue No Clearance of Vallecular Residue WFL Laryngeal Vestibular Closure WFL Pharyngeal Stripping Wave WFL Posterior Pharyngeal Wall Residue No Upper Esophageal Sphincter Opening WFL Residue in the Pyriform Sinuses No Esophageal Clearance Upright Position WFL Pharyngoesophageal Backflow Observed No Additional Pharyngeal Phase Observations The pt's pharyngeal tissue was observed to be swollen. However, her hyolaryngeal elevation, forward movement of the hyoid and posterior pharyngeal wall stripping were all WFL. No pooling or residue observed in the valeculla, pyriform sinuses, base of tongue or pharyngeal wall. No penetration of the laryngeal vestibule or aspiration observed. Pt did cough with textures of bulk (i .e., honey thick and pudding thick liquids) most likely due to hypersensitivity of the pharynx in response to the swollen tissue. It is expected that as the swelling goes down, the pt will be able to tolerate thicker/bulkier textures. Pt safely tolerated thin and nectar thick liquids . A/P View Clinical Impressions Dysphagia Type No oropharyngeal dysphagia Findings The pt presented with a swallow WFL for liquids. She did cough with bulkier boluses , which were likely due to hypersensitivity of the pharynx. Pharyngeal swelling from her ACDF was observed. No penetration of laryngeal vestibule or aspiration observed. Patient Appropriate for Therapy Yes: F/U x1 for pt tolerance and re-assessment as indicated Recommendations Diet Liquids Order Thin Diet Order Full Liquids Medication Recommendation As Tolerated,Crushed in Carrier Aspiration Precautions Recommended Precautions Upright at 90 Degrees,Small Bites/Sips,Chin Tuck,Liquids from Cup,Liquids from Spoon Additional Precautions Chin tuck instruction provided to calm pt re: her swallowing Treatment Plan Therapy Recommendations Outpatient Speech Therapy Additional Therapy Recommendations Out pt therapy recommended if pt continues to have difficulty after 3 weeks Recommended Referrals ENT Consult Additional Recommended Referrals ENT consult if pt's voice does not return after 3 weeks Ticket Dispatcher Goals pt will safely tolerate the least restrictive diet without s/sx aspiration
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
[2019-03-12] MEDS: INSULIN ASPART 100 UNIT/ML INSULN PEN SUBCUT (17:14)
--- NOTE | 2019-03-12 18:26 | PC.NURSE ---
Addendum entered by Bernadette Moore R.N. 03/12/19 23:22: 2215 - Labs ordered by hospitalist. Pt placed on 2L r/t continued report of SOB. 97% on 2L. IV bolus initiated. Pt continues to be drowsy, but responding appropriately. Call light in reach. Monitor. Addendum entered by Bernadette Moore R.N. 03/12/19 22:11: 2200 - Pt used call light. States I can't breath. Pt drowsy. Pulse ox placed on finger, sats 93% on RA. However, hr noted to be in the 130's. Pt states this happened previously, Right after surgery. BP 137/73, HR 137. Hospitalist notified. EKG ordered. 1999 - Reviewed Medication with pharmacy, discussed medications that can and cannot be crushed for administration. VSS. Pt on RA. Original Note: 1800 - Pt resting in bed. No signs of distress. Reports having a coughing problem. Pain reports 6 of 10 following RX administration. Offered ice pack or warm broth for pain and throat discomfort, pt declined. Asked pt what she thought might help, pt states sleep. Pt reports inability to recline in bed, sitting in high fowlers. Reports increased cough and breathing difficulties with HOB less than high fowlers. 1700 - Pt anxious and tearful. Reports frustration with current situation also states my kids aren't here and I am losing my mother. Allow pt to express feelings. States the she feel that surgery will need to be repeated, I can feel it back there, and no one is listening to me. Educated to the benefits of conservative treatment plan at this time. Monitor.
[2019-03-12] MEDS: LORazepam 2 MG/ML INJ IV ×2 (18:50→21:20)
[2019-03-12] MEDS: DESVENLAFAXINE SUCCINATE 50 MG 50 EACH PO (20:35)
[2019-03-12] MEDS: ATORVASTATIN 20 MG TABLET 40 MG PO (20:36)
[2019-03-12] MEDS: QUETIAPINE 100 MG TABLET 300 MG PO (20:36)
[2019-03-12] MEDS: TOPIRAMATE 25 MG TABLET 150 MG PO (20:36)
--- NOTE | 2019-03-12 22:46 | P.EN_ITS ---
Event Note Date Patient Seen: 03/12/19 Time Patient Seen: 22:10 Event Note: Responding to RN notification. It is being communicated that patient felt that she is having difficulty breathing. Patient said to be on room air w/ stable Spo2 of 93%. Her HR reported as elevated in the 120s. P atient noted to be drowsy w/o acute respiratory distress. SBP noted in the 130s mmHg. RT has been called to bedside. - STAT EKG - STAT BMP, Mg, Trop - Labs from earlier in the day reviewed. Patient appears to have a UTI per UA obtained in the afternoon on 03/12. No abx on JUL. Number of allergies on profile, which have been reviewed. Start patient on a 3 day coarse of oral levofloxacin. Patient reports urinary frequency; otherwise, unremarkable. Patient was seen and evaluated at bedside. She was not found to be in any distress. HR 120-130 range. BP 137/73 RR 16 Spo2 97% on 2L (she was placed on O2 for comfort). Patient is somnolent, having hard time staying awake; however, able to answer simple questions. No evidence of respiratory distress or stridor. Not diaphoretic. Denies CP, palpitations, and dizziness. received seroquel 300 mg (2035), topiramate 150 mg (2035), and 2 mg IV lorazepam (2119) STAT labs and EKG reviewed Na 137 K 3.2 Mg 1.7 Cl 107 Ca 8.8 Glu 147 CO2 22 Cr 0.7 BUN:Cr [address] (v-rate 128), non-specific ST/T changes anterior leads. QTc 470. - replete K and Mg. 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
[2019-03-12 22:47] LABS: Blood Urea Nitrogen 21 mg/dL (7-17); Calcium 8.8 mg/dL (8.4-10.2); Carbon Dioxide 22 mmol/L (22-32); Chloride 107 mmol/L (98-107); Creatine Kinase < 20 U/L (30-135); Estimated Glomerular Filt Rate > 60.0 mL/min (>60); Glucose 147 mg/dL (80-110); HEMOLYSIS < 15 (0-50); Magnesium 1.7 mg/dL (1.6-2.3); Potassium 3.2 mmol/L (3.4-5.1); Sodium 137 mmol/L (137-145)
[2019-03-12 22:59] LABS: Troponin I < 0.012 ng/mL (0.01-0.034)
[2019-03-12] MEDS: SODIUM CHLORIDE 0.9% 500 ML IV (23:20)
[2019-03-12] MEDS: POTASSIUM CHLORIDE 40 MEQ in SODIUM CHLORIDE 0.9% 500 ML 130 ML IV (23:51)
[2019-03-12] MEDS: MAGNESIUM SULFATE 2 GM/50 ML PIGGYBACK IV (23:52)
[2019-03-13 04:59] VITALS: BP 125/71; PULSE 86; RESP 14; TEMP 36.8; O2SAT 99
[2019-03-13 05:18] LABS: Add Manual Diff / Slide Review NO; Basophils Absolute Auto 0 /uL (0-100); Basophils Percent Auto 0.3 % (0-2); Eosinophils Absolute Auto 100 /uL (0-450); Eosinophils Percent Auto 0.8 % (2-4); Hematocrit 28.9 % (36-46); Lymphocytes Absolute Auto 2400 /uL (1100-4500); Lymphocytes Percent Auto 25.7 % (25-40); Mean Corpuscular HGB Conc 34.6 % (30-36); Mean Corpuscular Hemoglobin 30.9 PG (26-34); Mean Corpuscular Volume 89.5 fL (80-100); Monocytes Absolute Auto 600 /uL (0-900); Monocytes Percent Auto 6.7 % (3-14); Neutrophils Absolute Auto 6100 /uL (1500-7000); Neutrophils Percent Auto 66.5 % (50-75); Platelet Count 215 X10^3/uL (150-400); Red Blood Cell Count 3.23 X10^6/uL (4.0-5.2); Red Cell Distribution Width 13.9 % (11.6-14.8); White Blood Cell Count 9.1 X10^3/uL (4.5-11.0)
[2019-03-13 05:22] LABS: BUN Creatinine Ratio 31.7 (6-22); Blood Urea Nitrogen 19 mg/dL (7-17); Calcium 8.3 mg/dL (8.4-10.2); Carbon Dioxide 23 mmol/L (22-32); Chloride 111 mmol/L (98-107); Estimated Glomerular Filt Rate > 60.0 mL/min (>60); Glucose 124 mg/dL (80-110); HEMOLYSIS < 15 (0-50); Magnesium 1.8 mg/dL (1.6-2.3); Potassium 4.1 mmol/L (3.4-5.1); Sodium 138 mmol/L (137-145)
[2019-03-13 07:54] VITALS: BP 116/56; PULSE 84; RESP 16; TEMP 36.4; O2SAT 98
[2019-03-13] MEDS: KETOROLAC 30 MG/ML VIAL IV (07:56)
[2019-03-13] MEDS: levoFLOXacin 250 MG TABLET PO (09:04)
[2019-03-13] MEDS: MONTELUKAST 10 MG TABLET PO (09:04)
[2019-03-13] MEDS: LEVOTHYROXINE 125 MCG TABLET PO (09:04)
--- NOTE | 2019-03-13 09:18 | P.DS_ITS ---
History of Present Illness History of Present Illness Date Patient Seen: 03/13/19 Time Patient Seen: 07:00 Chief complaint: sore throat/diff. speaking/sob x4 days/surg. Narrative: 63-year-old female with cervical stenosis. She is status post anterior cervical fusion of C3-C4, and C6-7 on 03/05 that was complicated by a postoperative hematoma which needed to be evacuated the same day as surgery. The patient was discharged on 03/08. She presented to the emergency room today complaining of difficulty swallowing, speaking, and increased pain. Ms. Kelly is re-admitted for subjective difficulty breathing, difficulty swallowing. Patient has been assessed by speech therapy and is tolerating diet recommended by speech therapy. Patient is able to swallow small pills and crushed larger pills without issue. On exam, her incision is clean and dry. Her neck is supple without increased swelling or induration. She is neuro intact on exam. She is cleared to be discharged to home by all teams and services. She is instructed to notify orthopedic superintendent compressor stations or report to ED for worsening swelling and difficulty breathing. Discharge Providers Provider Date of admission: 03/11/19 11:11 Discharge Date: 03/13/19 Primary care physician: Rafy Martin Consults: 03/11/19 12:29 Consult to Physician Routine Comment: Consulting Provider: Martir Oneal Reason for consultation: Medical Management Has provider been notified: Yes Consult to Speech Therapy Evaluate & Treat Comment: NPO until eval Physician Instructions: Evaluate and treat 03/11/19 16:38 Consult to Respiratory Therapy Evaluate & Treat Comment: Physician Instructions: Evaluate and treat 03/12/19 08:43 Consult to Physical Therapy Evaluate & Treat Comment: mobility training Physician Instructions: Evaluate and Treat 03/12/19 08:44 Consult to Occupational Therapy Evaluate & Treat Comment: Physician Instructions: Evaluate and treat 03/13/19 16:32 Consult to Home Health Routine Comment: Reason For Exam: Home health PT/OT/RN/THERAPEUTIC RECREATION ASSISTANT/HAND PACKER/SIGNS CLEANER Discharge provider: Jeff Dailey PA-C Summary Hospital Course Discharge Diagnosis: Throat fullness Post-operative complication S/P cervical spinal fusion Migraine Left knee injury Acute maxillary sinusitis Intractable chronic migraine without aura and without status migrainosus Impingement syndrome of right shoulder foot sprain Hospital Course: 63-year-old female with cervical stenosis. She is status post anterior cervical fusion of C3-C4, and C6-7 on 03/05 that was complicated by a postoperative hematoma which needed to be evacuated the same day as surgery. The patient was discharged on 03/08. She presented to the emergency room on 03/11 complaining of difficulty swallowing, speaking, and increased pain. CT of her neck showed a low attenuation fluid in the retropharyngeal/prevertebral region from C2-C7. Patient was admitted to Orthopedic surgery with medicine consulted for assistance with management. Given IV decadron, IV toradol and tylenol prn. 03/12 patient reported having difficulty breathing - evaulated by internal medicine and respiratory therapist, stat labs and EKG reviewed, repleted K and Mg, 500 mg NS bolus, placed communication order to hold DESKTOP PUBLISHING OPERATOR depressing meds for RASS score > -1 03/13 patient considered ready for discharge home with home health services. Patient assessed by speech therapy and is tolerating diet recommended by speech therapy prior to discharge. Patient is able to swallow small pills and crushed larger pills without issue prior to discharge. Medrol dose pack prescribed. Exam Vital Signs (past 8 hours): Oxygen Delivery Method Room Air Oxygen Flow Rate 97 Objective Labs Result Diagrams: 03/13/19 04:40 03/13/19 04:40 Discharge Plan Discharge Plan Patient Disposition: Home Health Service Discharge Med Rec/Prescriptions Prescriptions: New oxycodone 5 mg tablet 5 mg PO Q6H PRN (Reason: pain) Qty: 60 RF: 0 tizanidine 4 mg tablet 4 mg PO Q8H PRN (Reason: muscle spasticity) Qty: 30 RF: 0 methylprednisolone [Medrol (Andres)] 4 mg tablets,dose pack See Rx Instructions .ROUTE .COMPLEX Qty: 21 RF: 0 Continued montelukast [Singulair] 10 MG tablet 10 mg PO QAM Qty: 0 RF: 0 cholecalciferol (vitamin D3) [Vitamin D3] 2,000 unit Capsule 2,000 unit PO DAILY Qty: 0 RF: 0 levocetirizine 5 MG tablet 5 mg PO DAILY Qty: 0 RF: 0 multivitamin [Multiple Vitamins] 1 EACH tablet 1 tab PO QDAY Qty: 0 RF: 0 cyanocobalamin (vitamin B-12) 1,000 MCG tablet extended release 1,000 mcg PO QDAY Qty: 0 RF: 0 magnesium oxide 400 MG tablet 400 mg PO QDAY Qty: 0 RF: 0 omega 9-rew-tls-fish oil [Fish Oil] 1,000 MG capsule 1,000 mg PO QDAY Qty: 0 RF: 0 epinephrine [EpiPen] 0.3 mg/0.3 mL Auto-Injector 0.3 mg IM SEEINSTR PRN (Reason: Anaphylxis) RF: 0 albuterol sulfate [Ventolin HFA] 90 mcg/actuation Hfa Aerosol Inhaler 2 puff INHALATION Q4H PRN (Reason: Wheeze) RF: 0 albuterol sulfate 2.5 mg /3 mL (0.083 %) Solution For Nebulization 2.5 mg INHALATION QID PRN (Reason: Shortness Of Breath) RF: 0 tizanidine 4 mg Capsule 4 mg PO TID PRN (Reason: Muscle spasms) RF: 0 Myrbetriq 50 mg Tablet Extended Release 24 Hr 50 mg PO DAILY RF: 0 Ajovy 225 mg/1.5 mL Syringe 225 mg SUBCUT QMONTH RF: 0 potassium 99 mg Tablet 99 mg PO DAILY RF: 0 docusate sodium [DOK] 100 mg Capsule 100 mg PO BID PRN (Reason: constipation) Qty: 20 RF: 0 quetiapine 300 mg tablet 300 mg PO BEDTIME RF: 0 omeprazole 20 mg capsule,delayed release(DR/EC) 40 mg PO DAILY RF: 0 desvenlafaxine succinate 50 mg tablet extended release 24 hr 50 mg PO BEDTIME RF: 0 oxycodone-acetaminophen 10-325 mg tablet 1 tab PO Q4-6H PRN (Reason: pain) RF: 0 metformin 1,000 mg tablet 1,000 mg PO BID RF: 0 levothyroxine 125 mcg tablet 125 mcg PO DAILY RF: 0 topiramate 50 mg tablet 150 mg PO BEDTIME RF: 0 oxycodone 5 mg tablet 5 - 10 mg PO Q4H PRN (Reason: Pain, Moderate (4-6)) RF: 0 rizatriptan [Maxalt-INFORMATION CLERK BROKERAGE] 10 mg tablet,disintegrating See Rx Instructions PO .COMPLEX Qty: 10 RF: 2 atorvastatin 40 mg tablet 40 mg PO BEDTIME RF: 0 ketorolac 10 mg tablet 10 mg PO Q6H PRN (Reason: pain) 5 Days Qty: 20 RF: 2 ketorolac 60 mg/2 mL cartridge 30 mg IM Q6-8H PRN (Reason: pain) Qty: 20 RF: 2 Follow up/Referrals: Rafy Martin [Primary Care Provider] - Provider Discharge Instructions Diet: Diet as Tolerated Diet comment: Diet consistent per speech therapy recommendation Activity: Limit neck bending and twisting Skin/Wound/Dressing Care Skin care: Keep incision clean and dry Report to your healthcare provider any signs of infection, such as:: chills, fever, night sweats, increased pain, unusual drainage and unusual redness Dressing: May shower with incision covered for 2 weeks Discharge Data Primary Care Provider: Rafy Martin Discharges patient from system. Discharge Date/Time: 03/13/19 17:38 Quality VTE Deep Vein Thrombosis/Pulmonary Embolism Present on Admission: No
[2019-03-13] MEDS: ACETAMINOPHEN 325 MG TABLET 650 MG PO (09:22)
[2019-03-13] MEDS: BISACODYL 10 MG SUPP PR (09:32)
[2019-03-13 10:00] VITALS: PULSE 94; RESP 18; O2SAT 97
--- NOTE | 2019-03-13 10:21 | ST.IPDYTX ---
VEGETABLE HARVEST MACHINE OPERATOR Dysphagia Treatment VEGETABLE HARVEST MACHINE OPERATOR Dysphagia Treatment Start: 03/11/19 16:37 Freq: Status: Active Protocol: Document 03/13/19 10:13 TLC (Rec: 03/13/19 10:21 TLC [id number]) Dysphagia Treatment Session Time Visit Start Time 09:30 Visit Stop Time 09:50 Total Visit Minutes 20 Setting Assessment Location Acute Care Visit Type Note Type Treatment Note Patient Information Subjective Observations Patient was sitting up in chair in room just finishing up taking her meds which were crushed in apple sauce. She also had soda and was taking small sips without coughing or choking. Her was present. Nursing reports no difficulty with crushed pills. Treatment Liquids Trialed Thin Solids Trialed Puree,Dysphagia Mechanical Administration Type Self-Feeding Oral Strategies Controlled Bite/Sip Size Pharyngeal Strategies Double Swallow Treatment Activities Patient's voice noted to be stronger compared to yesterday morning. No coughing or other signs of aspiration observed with cup sips of soda. Patient had her top and bottom dentures in and agreed to trials of diced peaches in juice. She consumed ~5 bites of peaches without overt difficulty, but pointed to her throat and stated she feels as if food is trying to go down the wrong way. When asked if she would like to discontinue trials, she said no, they taste good. Verbal education was provided to her and her regarding advancing diet as tolerated, small bites/sips, and slow rate. Assessment Patient Response to Treatment Good Rehab Potential Good Assessment of Improvement Patient continues to complain of throat discomfort and difficulty swallowing more solid foods; however, instrumental evaluation revealed patient has functional laryngeal vestibular closure without observed aspiration or penetration. Recommend patient continue to advance diet as tolerated and implement safe swallow precautions. No further ST recommended at this time. Diet Recommendations Recommendations Upgrade Diet Order Liquids Order Thin Diet Order Dysphagia Mechanical Medication Recommendations As Tolerated Additional Dietary Needs Reminders to Use Strategies Aspiration Precautions Recommended Precautions Upright at 90 Degrees,Small Bites/Sips Treatment Plan Placement Recommendation after Discharge Home Appropriate for Continued Therapy No Dysphagia Goals Pt will safely tolerate the least restrictive diet without s/sx aspiration - goal met
--- NOTE | 2019-03-13 10:47 | PT.IPTN ---
Current Diagnoses Other postprocedural complications of skin and subcutaneous tissue (03/11/19) Other general symptoms and signs (03/11/19) Arthrodesis status (03/11/19) Physical Therapy Treatment Note M2 PT-IP Current Condition Start: 03/12/19 13:50 Freq: NEEDED Status: Active Protocol: Document 03/12/19 16:32 AW (Rec: 03/12/19 16:56 AW [id number]) Physical Therapy Current Condition Current Condition Evaluation Date 03/12/19 Treatment Diagnosis dysphagia, shortness of breath , impaired mobility Precautions Cervical Spine Precautions Soft Collar for Comfort,No Heavy Lifting,Log Roll M3 PT-IP Subjective Start: 03/12/19 13:50 Freq: NEEDED Status: Active Protocol: Document 03/13/19 10:35 GGD (Rec: 03/13/19 10:47 GGD [id number]) Subjective Physical Therapy Visit Type Type Treatment Note Visit Start Time 10:15 Visit Stop Time 10:35 Total Visit Minutes 20 Physical Therapy Visit Comments Patient Comments Pt states she is very tired. Therapy Pain Assessment Pain When Pain Assessed At Rest Pain Present Pain Present Pain Reported Location Throat Intensity 7 Scale Used Numeric (1 - 10) M4 PT-IP Mobility and Gait Start: 03/12/19 13:50 Freq: NEEDED Status: Active Protocol: Document 03/13/19 10:35 GGD (Rec: 03/13/19 10:47 GGD [id number]) PT-Transfer Assessment Sit to and From Stand Sit to and from Stand Contact Guard Assistance,1 Person Assistance,Use of Upper Extremities Equipment Transfer Assistive Device Gait Belt,Front Wheeled Walker Orthotic/Prosthetic Devices or Brace: Yes Transfers Transfer Destination Chair Transfer Ability Level of Assist Contact Guard Assistance Gait Assessment Gait Gait Assistance Required: Standby Assistance,Contact Guard Assist Distance (Feet) 80 Able to Maintain Weight Bearing Status Yes During Gait Assistive Devices Assistive Device Gait Belt,Front Wheeled Walker Gait Deviations General Gait Pattern Antalgic,Decreased Stride Length,Decreased Feet Clearance Factors Limiting Gait Function Factors Limiting Gait Function Decreased Activity Tolerance, Decreased Sensation,Pain,Poor Balance,Poor Safety Awareness M5 PT-IP Objective Assessments Start: 03/12/19 13:50 Freq: NEEDED Status: Active Protocol: Document 03/12/19 16:32 AW (Rec: 03/12/19 16:56 AW [id number]) Orientation Orientation/Cognition Level of Alertness Alert Orientation Name,Day of Week,Place, Situation Language Function Ability No Deficits Noted Safety Awareness Understands Safety Issues Memory Description No Deficits Noted Strength Lower Extremity Strength Assessment Left Impaired Hip 3+/5 Knee 3+/5 Coordination Assessment Gross Coordination Gross Coordination WNL Sensation Assessment Sensation Gross Sensation Left LE Impaired Light Touch Impaired Comments Sensation Comments LLE with impaired/dull light touch sensation, worse on plantar aspect of foot and on anterior leg. M6 PT-IP Treatment Start: 03/12/19 13:50 Freq: NEEDED Status: Active Protocol: Document 03/13/19 10:35 GGD (Rec: 03/13/19 10:47 GGD [id number]) Physical Therapy Treatment Education Education Provided Precautions,Safety M7 PT-IP Assessment and Plan Start: 03/12/19 13:50 Freq: NEEDED Status: Active Protocol: Document 03/13/19 10:35 GGD (Rec: 03/13/19 10:47 GGD [id number]) PT Summary Assessment and Plan Summary Assessment Summary Pt improving slowly with mobility. She was able to progress gait. She had mild unsteadiness with gait. She safe with sit to stand with UE support. Frequency of Treatment Frequency Of Treatment Twice a Day Treatment Plan Physical Therapy Treatment Plan Bed Mobility Training,Transfer Training,Gait Training, Therapeutic Exercise,Balance Retraining,Post Op Education, Discharge Planning,Hot or Cold Pack,Neuromuscular Re-ed, Coordination Retraining,Manual Therapy Recommendations To Nursing Amount of Assist Needed 1 Person Assist Discharge Recommendations PT Discharge Recommendations Home with 24/7 Assist,Home Health,SNF Rehab Other Discharge Recommendations 24/7 assist at home with home health vs SNF rehab. Will continue to assess.
[2019-03-13 11:55] VITALS: BP 132/61; PULSE 90; RESP 16; TEMP 36.9
--- NOTE | 2019-03-13 11:56 | PM.PNPO.1 ---
Subjective Subjective Date Patient Seen: 03/13/19 Time Patient Seen: 11:56 Interval history: Patient is POD#8 s/p ACDF with emergent return to OR that day for hematoma evacuation with Dr. Doshi. She has been evaluated by speech and is tolerated full liquids and crushed pills. She still reports feeling off fullness in the throat but denies any shortness of breath. Pain has been moderate. Exam Vital Signs (past 8 hours): - 03/13/19 04:59 03/13/19 07:54 03/13/19 10:00 Temperature 98.2 F 97.5 F L Pulse Rate 86 84 94 H Respiratory Rate 14 16 18 Blood Pressure 125/71 116/56 L Pulse Oximetry 99 98 97 03/13/19 11:55 Temperature 98.5 F Pulse Rate 90 Respiratory Rate 16 Blood Pressure 132/61 Pulse Oximetry Oxygen Delivery Method Room Air Oxygen Flow Rate 97 Narrative Exam Narrative: 63 year old female resting in chair. Alert and oriented in no acute distress. Patient became tearful and noted suicidal thoughts earlier in the week while unable to swallow pills, states this has resolved and is no longer having these thoughts. No dressing in place at time of exam. Incision is flat. No visible drainage. Minimal swelling and bruising about the incision. Patient able to move both upper extremities freely. Yarn Skeins Examiner strength is equal. Objective Labs Result Diagrams: 03/13/19 04:40 03/13/19 04:40 Labs: Laboratory Results - last 24 hr 03/12/19 03/12/19 03/13/19 14:30 22:25 04:40 WBC 9.1 RBC 3.23 L Hgb 10.0 L Hct 28.9 L MCV 89.5 MCH 30.9 MCHC 34.6 RDW 13.9 Plt Count 215 Neut % (Auto) 66.5 D Lymph % (Auto) 25.7 [place] % (Auto) 6.7 Eos % (Auto) 0.8 L Baso % (Auto) 0.3 Neut # (Auto) 6100 Lymph # (Auto) 2400 [place] # (Auto) 600 Eos # (Auto) 100 Baso # (Auto) 0 Sodium 137 Potassium 3.2 L Chloride 107 Carbon Dioxide 22 BUN 21 H Creatinine 0.70 Estimated GFR > 60.0 BUN/Creatinine Ratio 30.0 H Glucose 147 H Calcium 8.8 Magnesium 1.7 Total Creatine Kinase < 20 L CK-MB (CK-2) TNP CK-MB (CK-2) Rel Index TNP Troponin I < 0.012 Urine Color [place] Urine Appearance Cloudy Urine pH 5.5 Ur Specific [place] 1.025 Urine Protein 1+ H Urine Glucose (UA) Negative Urine Ketones 1+ H Urine Occult Blood Negative Urine Nitrate Negative Urine Bilirubin 1+ H Urine Ictotest Negative Urine Urobilinogen 0.2 Ur Leukocyte Esterase 2+ H Urine RBC None seen Urine WBC 30-100/hpf H Ur Squamous Epith Cells 5-10 /hpf H Amorphous Sediment 1+ Urine Bacteria Many (>30) H Urine Mucus 2+ H Ur Culture Indicated? Specimen cultured 03/13/19 04:40 WBC RBC Hgb Hct MCV MCH MCHC RDW Plt Count Neut % (Auto) Lymph % (Auto) [place] % (Auto) Eos % (Auto) Baso % (Auto) Neut # (Auto) Lymph # (Auto) [place] # (Auto) Eos # (Auto) Baso # (Auto) Sodium 138 Potassium 4.1 Chloride 111 H Carbon Dioxide 23 BUN 19 H Creatinine 0.60 Estimated GFR > 60.0 BUN/Creatinine Ratio 31.7 H Glucose 124 H Calcium 8.3 L Magnesium 1.8 Total Creatine Kinase CK-MB (CK-2) CK-MB (CK-2) Rel Index Troponin I Urine Color Urine Appearance Urine pH Ur Specific [place] Urine Protein Urine Glucose (UA) Urine Ketones Urine Occult Blood Urine Nitrate Urine Bilirubin Urine Ictotest Urine Urobilinogen Ur Leukocyte Esterase Urine RBC Urine WBC Ur Squamous Epith Cells Amorphous Sediment Urine Bacteria Urine Mucus Ur Culture Indicated? Assessment & Plan Post-op Postoperative Postoperative plan narrative: Patient is progressing well despite complications. Diet to be advanced per speech. Oxycodone added for improved pain control. Continuous pulse ox to remain in place over concerns of patient being oversedated previously. Patient has some assistance at home but will likely require 24 hour care as she has history of blackouts coupled with need for post operative rehabilitation. Possible discharge to home tomorrow with Medrol dose pack to be continued outpatient. Quality VTE Deep Vein Thrombosis/Pulmonary Embolism Present on Admission: No
[2019-03-13] MEDS: OXYCODONE IR 5 MG TABLET PO (12:22)
[2019-03-13] MEDS: INSULIN ASPART 100 UNIT/ML INSULN PEN SUBCUT (12:24)
--- NOTE | 2019-03-13 12:56 | PC.NURSE ---
Discussed ineffective pain med regimen with PA on rounds. New orders received for PRN oxycodone with instructions to monitor cont. pulse ox with first few doses. Pt states she is unable to use adhesive pulse ox probe due to allergy to adhesive. She is agreeable to a clip on pulse oximeter, but declines use while eating and performing ADLs. SPO2 98% post med administration. Will monitor as able.
--- NOTE | 2019-03-13 14:37 | PM.PN.1 ---
Subjective Subjective Date Patient Seen: 03/13/19 Interval history: Daphnie Kelly is a 63-year-old female with a past medical history significant for bipolar disorder, COPD, hyperlipidemia, depression, diabetes mellitus type 2, non-insulin using, hypothyroidism and is status post anterior cervical fusion of C3-C4, and C6-7 on 03/05 that was complicated by a postoperative hematoma which needed to be evacuated. The patient was discharged on 03/08 and presented to the emergency room complaining of difficulty swallowing secondary to developing fluid collection. Medicine team was consulted for shortness of breath and dysphagia. The patient is resting in bedside chair comfortably comfortably and in no acute distress. She talks at length about her shortness of breath with exertion that has been there well before her surgery. She denies shortness of breath at rest. Her dysphagia is improving and she is tolerating liquids. Plan to slowly advance diet. She Has no other complaints and denies headache, sore throat, shortness of breath, chest pain, abdominal pain, nausea, vomiting, fever, chills, dysuria, diarrhea or constipation. She is voiding and eliminating without difficulty. She is up ambulating with assistance. Exam Vital Signs (past 8 hours): - 03/13/19 10:00 03/13/19 11:55 03/13/19 15:35 Temperature 98.5 F 99.4 F Pulse Rate 94 H 90 87 Respiratory Rate 18 16 16 Blood Pressure 132/61 133/67 Pulse Oximetry 97 97 Oxygen Delivery Method Room Air Oxygen Flow Rate 97 Narrative Exam Narrative: General: Older female sitting in bedside chair and in no acute distress, well-developed, well-nourished, depressed mood but otherwise appropriately interactive. HEENT: Normocephalic, atraumatic. External ears without defect. Pupils equal, round, and reactive to light. Anicteric sclerae, moist conjunctivae, and no lid lag. Oropharynx free of erythema and cobble stoning with moist mucosa. Neck: Supple with full range of motion. No jugular venous distension. No lymphadenopathy or thyromegaly. Mild ecchymoses of anterior neck resolving. Cardiovascular: Regular rate and rhythm without murmurs, rubs, or gallops appreciated Pulmonary: Clear to auscultation bilaterally without crackles, wheezes, or rhonchi. Normal respiratory effort with no use of accessory muscles. Abdomen: Soft, obese, bowel sounds present, nontender, nondistended. No hepatosplenomegaly or masses appreciated. Extremities: No clubbing, cyanosis, or edema. Skin: Normal temperature, turgor, and texture; no rash, ulcers, or subcutaneous nodules appreciated. Neurological: Cranial nerves grossly intact. Psychiatric: Depressed mood and flat affect. Alert and oriented to person, place, and time. Objective Labs Result Diagrams: 03/13/19 04:40 03/13/19 04:40 Labs: Laboratory Results - last 24 hr 03/12/19 03/13/19 03/13/19 22:25 04:40 04:40 WBC 9.1 RBC 3.23 L Hgb 10.0 L Hct 28.9 L MCV 89.5 MCH 30.9 MCHC 34.6 RDW 13.9 Plt Count 215 Neut % (Auto) 66.5 D Lymph % (Auto) 25.7 [place] % (Auto) 6.7 Eos % (Auto) 0.8 L Baso % (Auto) 0.3 Neut # (Auto) 6100 Lymph # (Auto) 2400 [place] # (Auto) 600 Eos # (Auto) 100 Baso # (Auto) 0 Sodium 137 138 Potassium 3.2 L 4.1 Chloride 107 111 H Carbon Dioxide 22 23 BUN 21 H 19 H Creatinine 0.70 0.60 Estimated GFR > 60.0 > 60.0 BUN/Creatinine Ratio 30.0 H 31.7 H Glucose 147 H 124 H Calcium 8.8 8.3 L Magnesium 1.7 1.8 Total Creatine Kinase < 20 L CK-MB (CK-2) TNP CK-MB (CK-2) Rel Index TNP Troponin I < 0.012 Assessment & Plan Assessment & Plan narrative: Daphnie Kelly is a 63-year-old female with a past medical history significant for bipolar disorder, COPD, hyperlipidemia, depression, diabetes mellitus type 2, non-insulin using, hypothyroidism and is status post anterior cervical fusion of C3-C4, and C6-7 on 03/05 that was complicated by a postoperative hematoma which needed to be evacuated. The patient was discharged on 03/08 and presented to the emergency room complaining of difficulty swallowing secondary to developing fluid collection. Medicine team was consulted for shortness of breath and dysphagia. 1. Acute dysphagia and shortess of breath, present on admission. Improving. -this appears to be related to a fluid collection as noted above in her CT neck and soft tissue. This is unlikely related to an infectious process, and probably result of her prior surgery and hematoma evacuation. On my exam she does not currently have any stridor and she is not spitting out her saliva. She was given steroids in the emergency room and this is unlikely an allergic reaction. -Continue management as per Orthopedic surgery -Patient has been given steroids in the ED, continue decadron and then prednisone taper upon discharge. 2. COPD, chronic, present on admission. Stable. -Does not represent COPD exacerbation. -Continue respiratory therapy evaluation and treatment. Continue as needed albuterol nebulizers. 3. Hyperlipidemia, chronic, present on admission. Stable. -Continue home lipitor which can be crushed. 4. Depression/Bipolar disorder, chronic, present on admission. Stable. -Continue home medications desvenlafaxine, topiramate, quetiapine. 5. History of diabetes mellitus type 2 in remission. -Hemoglobin A1c 5.6% indicative of diabetes and remission. -Continue [facility] blood glucose checks. -Continue diet control. 6. Hypothyroidism, chronic, present on admission. Stable. -Continue levothyroxine 125 mcg Medicine team will sign off at this time. Please feel free to contact us with any further needs. Quality VTE Deep Vein Thrombosis/Pulmonary Embolism Present on Admission: No
--- NOTE | 2019-03-13 15:09 | OT.IP.TRT ---
Current Diagnoses Other postprocedural complications of skin and subcutaneous tissue (03/11/19) Other general symptoms and signs (03/11/19) Arthrodesis status (03/11/19) Occupational Therapy Treatment Note M2 OT-IP Current Condition Start: 03/12/19 13:56 Freq: Status: Active Protocol: Document 03/12/19 14:02 [facility] (Rec: 03/12/19 14:34 [facility] [id number]) Occupational Therapy Current Condition Current Condition Evaluation Date 03/12/19 Treatment Diagnosis Dysphagia and shortness of breath Diagnosis Onset Date 03/11/19 Post Operative Precautions Cervical Spine Precautions Soft Collar for Comfort,No Heavy Lifting,Log Roll M3 OT- IP Subjective and Pain Start: 03/12/19 13:56 Freq: Status: Active Protocol: Document 03/13/19 14:54 [facility] (Rec: 03/13/19 15:08 [facility] [id number]) OT- Subjective Occupational Therapy Visit Type Type Treatment Note Visit Start Time 14:28 Visit Stop Time 14:51 Total Visit Minutes 23 Occupational Therapy Visit Comments Patient Comments Pt states tired but willing to get up to the sink to clean her dentures. Therapist had to unlock and move the bed to create more room for pt to get back to the sink from grooming needs. Therapist able to call down to ICU after OT session to have nursing relock the bed. Patient/Caregiver Goals Pt wanting to go home. OT Pain Assessment Pain When Pain Assessed At Rest Pain Present Pain Present Denied Pain M4 OT- IP ADL's Start: 03/12/19 13:56 Freq: Status: Active Protocol: Document 03/13/19 14:54 [facility] (Rec: 03/13/19 15:08 [facility] [id number]) OT [id number] Comments OT Self-Feeding Comments Pt now on dysphagia diet. OT ADL-Grooming General Evaluation Grooming Ability Independent Comments OT Grooming Comments Pt able to stand for several minutes for grooming needs. OT ADL-Oral Care General Eval Oral Care Ability Independent OT ADL-Dressing Comments OT Dressing Comments Pt issued socks aid so now able to independently carmen socks. To look at issuing stamping mill tender to increase ease to doff socks. M5 OT- IP IADL's Start: 03/12/19 13:56 Freq: Status: Active Protocol: Document 03/12/19 14:02 [facility] (Rec: 03/12/19 14:34 [facility] [id number]) OT-Instrumental Activities of Daily Living Medication Management Medication Management Caregiver Provides Supervision Medication Management Comments Pt's has to keep track of the pain medication for her. Money Management Money Management Caregiver Provides Assistance Meal Preparation Meal Preparation Caregiver Provides Assist Geodetic Engineer Geodetic Engineer Caregiver Provides Assist Driving Driving Caregiver Provides Assist M6 OT- IP Functional Cognition Start: 03/12/19 13:56 Freq: Status: Active Protocol: Document 03/13/19 14:54 [facility] (Rec: 03/13/19 15:08 [facility] [id number]) Cognitive Factors Limiting Selfcare Function Cognitive Ability Level of Alertness Alert Patient Orientation Name,Place,Situation Attention Span Ability Capable of Focused Attention, Capable of Sustained Attention Ability to Follow Commands Able to Follow One Step Commands Memory Description Short Term Impaired Safety Awareness Underestimates Need for Assistance Problem Solving Ability Needs Assist to Identify Solutions Cognitive Comments Cognitive Assessment Comments Pt realizes that she tends to do too much before taking a break. Spoke of energy conservation techniques for ADl needs. Pt has good understanding for needs. M7 OT- IP Mobility and Balance Start: 03/12/19 13:56 Freq: Status: Active Protocol: Document 03/13/19 14:54 [facility] (Rec: 03/13/19 15:08 [facility] [id number]) OT-Transfer Assessment Sit to and From Stand Sit to and from Stand Standby Assistance Transfers Transfer Ability Standby Assistance,Contact Guard Assistance Technique Transfer Destination Chair Transfer Technique Stand Step Pivot Devices Transfer Assistive Devices Gait Belt,Front Wheeled Walker Comments Mobility Comments Pt able to stand up from recliner with SBA. O2 on RA 99%. pt able to walk around the chair towards the sink and then having to side step with FWW to the sink due to space space. CGA when pt side stepping and negotiating cords on the floor. OT- Balance Assessment Sitting Balance and Reactions Static Sitting Balance Ability Normal Dynamic Sitting Balance Ability Good Standing Balance and Reactions Static Standing Balance Ability Good M8 OT- IP Objective Assessments Start: 03/12/19 13:56 Freq: Status: Active Protocol: Document 03/12/19 14:02 [facility] (Rec: 03/12/19 14:34 [facility] [id number]) OT Gross Range of Motion Upper Extremity Range of Motion Assessment Right Impaired ROM Impairments RUE 0-90 shoulder. OT Strength Comments Strength Comments LUE 4/5, RUE 3-/5 to 3+/5 M9 OT- IP Assessment and Plan Start: 03/12/19 13:56 Freq: Status: Active Protocol: Document 03/13/19 14:54 [facility] (Rec: 03/13/19 15:08 [facility] [id number]) OT Summary Assessment and Plan Potential Rehabilitation Potential Good Summary Progress Towards Goals Slow Progress due to Activity Tolerance Assessment Summary Pt now able to eat dyphagia foods. Pt having better activity tolerance as able to shower per pt earlier with nursing and now complete standing at the sink for grooming needs. Pt states wants to go home and feeling afraid to be home alone for part of the day when will be at work. However pt refuses to go to skilled rehab . Recommend 24/7 assist and home health versus skilled rehab for pt. Goals Grooming Goal Independent Dressing Goal Independent Toileting Goal Independent Bathing Goal Standby Assistance Toilet Transfer Goal Independent Shower Transfer Goal Standby Assistance Patient/Caregiver Education Goal Caregiver Independent Assisting Patient Days to Meet Goals 4 Treatment Plan OT Treatment Plan ADL Training,Functional Mobility,Patient/Family Education,Discharge Planning Discharge Recommendations OT Discharge Recommendations Home with 24/7 Assist,SNF Rehab
[2019-03-13 15:35] VITALS: BP 133/67; PULSE 87; RESP 16; TEMP 37.4; O2SAT 97
--- NOTE | 2019-03-13 16:09 | PT.IPTN ---
Current Diagnoses Other postprocedural complications of skin and subcutaneous tissue (03/11/19) Other general symptoms and signs (03/11/19) Arthrodesis status (03/11/19) Physical Therapy Treatment Note M2 PT-IP Current Condition Start: 03/12/19 13:50 Freq: NEEDED Status: Active Protocol: Document 03/12/19 16:32 AW (Rec: 03/12/19 16:56 AW [id number]) Physical Therapy Current Condition Current Condition Evaluation Date 03/12/19 Treatment Diagnosis dysphagia, shortness of breath , impaired mobility Precautions Cervical Spine Precautions Soft Collar for Comfort,No Heavy Lifting,Log Roll M3 PT-IP Subjective Start: 03/12/19 13:50 Freq: NEEDED Status: Active Protocol: Document 03/13/19 16:06 GGD (Rec: 03/13/19 16:09 GGD [id number]) Subjective Physical Therapy Visit Type Type Treatment Note Visit Start Time 13:40 Visit Stop Time 13:56 Total Visit Minutes 26 Number of ICE GUARD INSPECTOR Visits 2 Physical Therapy Visit Comments Patient Comments Pt states she been walking all day. Therapy Pain Assessment Pain When Pain Assessed At Rest Pain Present Pain Present Pain Reported Location Throat Intensity 6 Scale Used Numeric (1 - 10) M4 PT-IP Mobility and Gait Start: 03/12/19 13:50 Freq: NEEDED Status: Active Protocol: Document 03/13/19 16:06 GGD (Rec: 03/13/19 16:09 GGD [id number]) PT-Transfer Assessment Sit to and From Stand Sit to and from Stand Contact Guard Assistance,1 Person Assistance,Use of Upper Extremities Equipment Transfer Assistive Device Gait Belt,Front Wheeled Walker Orthotic/Prosthetic Devices or Brace: Yes Transfers Transfer Destination Chair Transfer Ability Level of Assist Contact Guard Assistance Gait Assessment Gait Gait Assistance Required: Standby Assistance,Contact Guard Assist Distance (Feet) 100 Able to Maintain Weight Bearing Status Yes During Gait Assistive Devices Assistive Device Gait Belt,Front Wheeled Walker Gait Deviations General Gait Pattern Antalgic,Decreased Stride Length,Decreased Feet Clearance Factors Limiting Gait Function Factors Limiting Gait Function Decreased Activity Tolerance, Decreased Sensation,Pain,Poor Balance,Poor Safety Awareness Comments Gait Comments Pt had one LOB with turn that needed CGA. M5 PT-IP Objective Assessments Start: 03/12/19 13:50 Freq: NEEDED Status: Active Protocol: Document 03/12/19 16:32 AW (Rec: 03/12/19 16:56 AW [id number]) Orientation Orientation/Cognition Level of Alertness Alert Orientation Name,Day of Week,Place, Situation Language Function Ability No Deficits Noted Safety Awareness Understands Safety Issues Memory Description No Deficits Noted Strength Lower Extremity Strength Assessment Left Impaired Hip 3+/5 Knee 3+/5 Coordination Assessment Gross Coordination Gross Coordination WNL Sensation Assessment Sensation Gross Sensation Left LE Impaired Light Touch Impaired Comments Sensation Comments LLE with impaired/dull light touch sensation, worse on plantar aspect of foot and on anterior leg. M6 PT-IP Treatment Start: 03/12/19 13:50 Freq: NEEDED Status: Active Protocol: Document 03/13/19 10:35 GGD (Rec: 03/13/19 10:47 GGD [id number]) Physical Therapy Treatment Education Education Provided Precautions,Safety M7 PT-IP Assessment and Plan Start: 03/12/19 13:50 Freq: NEEDED Status: Active Protocol: Document 03/13/19 16:06 GGD (Rec: 03/13/19 16:09 GGD [id number]) PT Summary Assessment and Plan Summary Assessment Summary Pt is slow moving with gait. She was able to self correct LOB during turn. Overall pt is improving with mobility slowly. Frequency of Treatment Frequency Of Treatment Twice a Day Treatment Plan Physical Therapy Treatment Plan Bed Mobility Training,Transfer Training,Gait Training, Therapeutic Exercise,Balance Retraining,Post Op Education, Discharge Planning,Hot or Cold Pack,Neuromuscular Re-ed, Coordination Retraining,Manual Therapy Recommendations To Nursing Amount of Assist Needed 1 Person Assist Discharge Recommendations PT Discharge Recommendations Home with 10/12 Assist,Home Health Other Discharge Recommendations Pt prefers home with
--- NOTE | 2019-03-13 16:40 | CM.DPNOTE ---
DCP Cont: Met w/pt, spouse and YORDY Leon at bedside this morning, reviewed DCP. Pt and spouse agreeable to a scheduled DC Saturday, they request a call be made to YUMIKO Ellis to request an updated assessment in case pt would qualify for addtl. YUMIKO cg hours ? Pt has approx 84 hrs of monthly cg assist. Pt/spouse also request Home Health, no agency preference. YORDY Leon agrees this would be a good idea and a great supportive measure for pt since she remains weak after recent spinal surgery and recent neck hematoma/swelling. This STABLEHAND requested that STABLEHAND Kathy Alejandre assist w/coordination above and she kindly obliged. P: DC expected Saturday, home w/spouse and family to assist this weekend, YUMIKO cg throughout the week. Home Health referral in process, and YUMIKO Higuera made aware of pt's admission and request for addtl. cg hours. VAMSI Owusu
--- NOTE | 2019-03-13 16:51 | PM.PN.1 ---
Exam Vital Signs (past 8 hours): - 03/13/19 10:00 03/13/19 11:55 03/13/19 15:35 Temperature 98.5 F 99.4 F Pulse Rate 94 H 90 87 Respiratory Rate 18 16 16 Blood Pressure 132/61 133/67 Pulse Oximetry 97 97 Oxygen Delivery Method Room Air Oxygen Flow Rate 97 Objective Labs Result Diagrams: 03/13/19 04:40 03/13/19 04:40 Labs: Laboratory Results - last 24 hr 03/12/19 03/13/19 03/13/19 22:25 04:40 04:40 WBC 9.1 RBC 3.23 L Hgb 10.0 L Hct 28.9 L MCV 89.5 MCH 30.9 MCHC 34.6 RDW 13.9 Plt Count 215 Neut % (Auto) 66.5 D Lymph % (Auto) 25.7 [place] % (Auto) 6.7 Eos % (Auto) 0.8 L Baso % (Auto) 0.3 Neut # (Auto) 6100 Lymph # (Auto) 2400 [place] # (Auto) 600 Eos # (Auto) 100 Baso # (Auto) 0 Sodium 137 138 Potassium 3.2 L 4.1 Chloride 107 111 H Carbon Dioxide 22 23 BUN 21 H 19 H Creatinine 0.70 0.60 Estimated GFR > 60.0 > 60.0 BUN/Creatinine Ratio 30.0 H 31.7 H Glucose 147 H 124 H Calcium 8.8 8.3 L Magnesium 1.7 1.8 Total Creatine Kinase < 20 L CK-MB (CK-2) TNP CK-MB (CK-2) Rel Index TNP Troponin I < 0.012 Assessment & Plan Assessment & Plan narrative: Ms. Kelly is re-admitted for subjective difficulty breathing, difficulty swallowing. Patient has been assessed by speech therapy and is tolerating diet recommended by speech therapy. Patient is able to swallow small pills and crushed larger pills without issue. On exam, her incision is clean and dry. Her neck is supple without increased swelling or induration. She is neuro intact on exam. She is cleared to be discharged to home by all teams and services. She is instructed to notify orthopedic machine container washer or report to ED for worsening swelling and difficulty breathing. Quality VTE Deep Vein Thrombosis/Pulmonary Embolism Present on Admission: No
--- NOTE | 2019-03-13 17:36 | PC.NURSE ---
1730- Discharged pre MD order with additional ok to discharge from Hospitalist. Patient alert and oriented. Heplock dc'd bandage secured with coban. Patient in no distress at the time of discharge. Patient and Spouse verbalized understanding of discharge plan and scripts were given to them.
--- NOTE | 2019-03-13 17:53 | CM.DANOTE ---
DCP/Continued: Reviewed chart. Verbal referral given to ELEMENTARY ASSISTANT TEACHER for finalizing d/c plan. Current plan is patient going home with . Per Cassie AGUSTIN patient agreeable to HH and would like [facility] if possible. Placed call to [facility] at approximately 4:30pm and they had already left for the day. Spoke with patient and spouse about second HH choices. They would like ELEMENTARY ASSISTANT TEACHER to call [facility] . Placed call to [facility], spoke with Amaris. She reports that they can accept referral. All info faxed to [phone]. Patient signed CHUN. On patient's behalf placed call to YUMI[facility] MCCARTHY/Rhonda Puckett # [phone]. ELEMENTARY ASSISTANT TEACHER left requesting that CM follow up with patient at home re: additional skin care therapist hours. Patient reports that she currently receiving about 80hrs per month with [facility]. Per RN, d/c now planned for this evening. [facility] updated and patient/spouse provided brochure. P: Home today with [facility]. VAMSI Grimaldo
== END 2019-03-13 17:38 | disposition home health service (06) | DRG 920 ==
LOC: ED 10:47 → AC 11:11 → ICU 03-12 09:12
PROVIDERS: Internal Medicine; Nurse Practitioner Gerontology; Admitting Provider Orthopaedic Surgery Orthopaedic Surgery of the Spine; Emergency Provider Emergency Medicine; PCP Physician Assistant Medical; Visit Provider Orthopaedic Surgery Orthopaedic Surgery of the Spine
DX: M96.842 Postprocedural seroma of a musculoskeletal structure following a musculoskeletal system procedure (principal); Z68.41 Body mass index [BMI] 40.0-44.9, adult; N39.0 Urinary tract infection, site not specified; R13.13 Dysphagia, pharyngeal phase; J44.9 Chronic obstructive pulmonary disease, unspecified; F31.9 Bipolar disorder, unspecified; E66.01 Morbid (severe) obesity due to excess calories; E03.9 Hypothyroidism, unspecified; E11.9 Type 2 diabetes mellitus without complications; Z79.84 Long term (current) use of oral hypoglycemic drugs
CPT/HCPCS: 36415; 70360; 70491; 74230; 80048; 81001; 82550; 82962; 83735; 84484; 85025; 87077; 87086; 87186; 92526; 92610; 92611; 93005; 94760; 94770; 96374; 96375; 97116; 97162; 97165; 97530; 97535; 99283; 99284; J1100; J1885; J2060; J3480; Q9967

== ENCOUNTER 2019-04-23 20:02 | Emergency (ER) | payer MEDICARE, OTHER, MEDICAID, SELFPAY ==
[2019-03-07 06:08] VITALS: PULSE 70; RESP 18; O2SAT 97
[2019-03-11 14:21] VITALS: BMI 41.1
[2019-04-23 20:13] VITALS: BP 167/90; PULSE 85; RESP 16; TEMP 36.7; O2SAT 100; BMI 40.3
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
[2019-04-23] MEDS: OXYMETAZOLINE NASAL SPRAY 30 ML 2 SPRAYS NASAL (20:40)
[2019-04-23] MEDS: OXYCODONE/ACETAMINOPHEN 5/325 TABLET 1 TAB PO (20:41)
== END 2019-04-23 20:44 | disposition home or self-care (01) ==
PROVIDERS: Emergency Provider Emergency Medicine; PCP Physician Assistant Medical
DX: H65.01 Acute serous otitis media, right ear (principal)
CPT/HCPCS: 99282; 99283

== ENCOUNTER → 2019-06-24 10:00 | Outpatient (CLI) | payer MEDICARE, MEDICAID, OTHER, SELFPAY ==
[2019-03-07 06:08] VITALS: PULSE 70; RESP 18; O2SAT 97
[2019-03-11 14:21] VITALS: BMI 41.1
[2019-06-24 11:28] LABS: Add Manual Diff / Slide Review NO; Basophils Absolute Auto 100 /uL (0-100); Basophils Percent Auto 0.7 % (0-2); Eosinophils Absolute Auto 200 /uL (0-450); Eosinophils Percent Auto 2.3 % (2-4); Hematocrit 40.8 % (36-46); Hemoglobin 13.4 g/dL (12.0-16.0); Lymphocytes Absolute Auto 1700 /uL (1100-4500); Lymphocytes Percent Auto 21.9 % (25-40); Mean Corpuscular HGB Conc 32.9 % (30-36); Mean Corpuscular Hemoglobin 28.6 PG (26-34); Mean Corpuscular Volume 87.1 fL (80-100); Monocytes Absolute Auto 500 /uL (0-900); Monocytes Percent Auto 5.8 % (3-14); Neutrophils Absolute Auto 5500 /uL (1500-7000); Neutrophils Percent Auto 69.3 % (50-75); Platelet Count 220 X10^3/uL (150-400); Red Blood Cell Count 4.68 X10^6/uL (4.0-5.2); Red Cell Distribution Width 14.7 % (11.6-14.8); White Blood Cell Count 7.9 X10^3/uL (4.5-11.0)
[2019-06-24 11:48] LABS: C-Reactive Protein Quant 0.7 mg/dL (<1.0)
[2019-06-24 11:49] LABS: Erythrocyte Sedimentation Rate 24 MM/HR (0-20)
== END ==
PROVIDERS: PCP Physician Assistant Medical; Referring Provider Orthopaedic Surgery; Visit Provider Orthopaedic Surgery
DX: M00.9 Pyogenic arthritis, unspecified (principal); M25.562 Pain in left knee; Z96.652 Presence of left artificial knee joint
CPT/HCPCS: 36415; 85025; 85651; 86140

== ENCOUNTER 2019-08-30 15:57 | Emergency (ER) | payer MEDICARE, MEDICAID, OTHER, SELFPAY ==
[2019-03-07 06:08] VITALS: PULSE 70; RESP 18; O2SAT 97
[2019-03-11 14:21] VITALS: BMI 41.1
[2019-08-30 16:00] VITALS: BP 143/64; PULSE 93; RESP 15; TEMP 36.8; O2SAT 98
--- NOTE | 2019-08-30 16:07 | DI.RAD.S_ITS ---
PROCEDURE: XR KNEE LT 3V INDICATIONS: pain after fall TECHNIQUE: 3 views of the knee were acquired. COMPARISON: [facility], CR, KNEE 3V LEFT, 05/20/2015, 22:38. [facility], CR, XR KNEE LT 3V, 01/09/2018, 22:46. [facility], CR, XR KNEE LT 3V, 02/17/2018, 0:57. [facility], , XR KNEE LT 1TO2V, 06/16/2018, 14:43. FINDINGS: Bones: No fractures or dislocations. No suspicious bony lesions. Left knee arthroplasty hardware is seen. No findings of hardware failure or hardware loosening are seen. Soft tissues: There is a mild joint effusion. No suspicious soft tissue calcifications. IMPRESSION: No acute bony injury is seen. Mild joint effusion. Intact appearing hardware. Dictated by: Lew Mckeon M.D. on 08/30/2019 at 15:24 Approved by: Lew Mckeon M.D. on 08/30/2019 at 15:25
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
[2019-08-30 16:40] VITALS: BP 127/57; PULSE 83; RESP 18; O2SAT 98
== END 2019-08-30 16:46 | disposition home or self-care (01) ==
PROVIDERS: Emergency Provider Emergency Medicine; PCP Physician Assistant Medical
DX: S89.92XA Unspecified injury of left lower leg, initial encounter (principal); S09.90XA Unspecified injury of head, initial encounter; W18.30XA Fall on same level, unspecified, initial encounter; Z91.81 History of falling
CPT/HCPCS: 73562; 99283

== ENCOUNTER 2019-09-16 20:03 | Observation (INO) | payer MEDICARE, OTHER, MEDICAID, SELFPAY ==
[2019-03-07 06:08] VITALS: PULSE 70; RESP 18; O2SAT 97
[2019-03-11 14:21] VITALS: BMI 41.1
[2019-09-16 20:12] VITALS: BP 130/61; PULSE 93; RESP 20; TEMP 36.6; O2SAT 100
--- NOTE | 2019-09-16 20:22 | PC.NURSE ---
Patient complained of head pain since a fall on the . She has not been able to reduce her head pain. She was not able to look left when I had her track with a light. She had drifting in her left arm and weakness in her left leg. She had ataxia in left hand. I let Dr. Camacho know of my assessment.
--- NOTE | 2019-09-16 20:25 | DI.CT.S_ITS ---
PROCEDURE: CT STROKE INDICATIONS: stroke symptoms, headache, fall, bleed? TECHNIQUE: Noncontrast 4.5 mm thick angled axial sections acquired from the foramen magnum to the vertex, with coronal reformats. For radiation dose reduction, the following was used: automated exposure control, adjustment of mA and/or kV according to patient size. COMPARISON: None. FINDINGS: Image quality: Excellent. CSF spaces: Basal cisterns are patent. No extra-axial fluid collections. Ventricles are normal in size and shape. Brain: No midline shift. No intracranial masses or hemorrhage. Mireles-white matter interface is normal. Skull and face: Calvarium and visualized facial bones are intact, without suspicious lesions. Sinuses: Visualized sinuses and mastoids are clear. IMPRESSION: Normal for age, no mass or hemorrhage found. This study fulfills neurological imaging criteria for inclusion or exclusion of acute stroke therapies based on available published neurological imaging guidelines. Dictated by: Bertin Ferro M.D. on 09/16/2019 at 20:59 Approved by: Bertin Ferro M.D. on 09/16/2019 at 20:59
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
[2019-09-16] MEDS: SODIUM CHLORIDE 0.9% 1,000 ML 150 ML IV (20:39)
[2019-09-16 20:49] LABS: Add Manual Diff / Slide Review NO; Basophils Absolute Auto 0 /uL (0-100); Basophils Percent Auto 0.2 % (0-2); Eosinophils Absolute Auto 400 /uL (0-450); Eosinophils Percent Auto 5.1 % (2-4); Hematocrit 39.5 % (36-46); Lymphocytes Absolute Auto 2300 /uL (1100-4500); Lymphocytes Percent Auto 32.2 % (25-40); Mean Corpuscular Hemoglobin 29.6 PG (26-34); Mean Corpuscular Volume 89.7 fL (80-100); Monocytes Absolute Auto 500 /uL (0-900); Neutrophils Absolute Auto 4000 /uL (1500-7000); Neutrophils Percent Auto 55.5 % (50-75); Platelet Count 220 X10^3/uL (150-400); Red Cell Distribution Width 15.5 % (11.6-14.8); White Blood Cell Count 7.2 X10^3/uL (4.5-11.0)
[2019-09-16 20:57] LABS: Prothrombin Time 11.2 SECONDS (10.1-12.7)
[2019-09-16 21:00] LABS: PTT Partial Thromboplastin Tim 34 SECONDS (26.4-36.2)
[2019-09-16] MEDS: KETOROLAC 60 MG/2 ML VIAL 15 MG IV (21:19)
[2019-09-16] MEDS: ASPIRIN 81 MG CHEW TAB 324 MG PO (21:19)
[2019-09-16 21:48] LABS: Blood Urea Nitrogen 13 mg/dL (7-17); Calcium 8.7 mg/dL (8.4-10.2); Carbon Dioxide 26 mmol/L (22-32); Chloride 107 mmol/L (98-107); Estimated Glomerular Filt Rate > 60.0 mL/min (>60); Glucose 86 mg/dL (80-110); HEMOLYSIS < 15 (0-50); Sodium 137 mmol/L (137-145)
--- NOTE | 2019-09-16 23:25 | PC.NURSE ---
Made a call to Aparna Calix on the floor, for report, and she was busy and had to gómez me back.
--- NOTE | 2019-09-16 23:47 | DI.CT.S_ITS ---
PROCEDURE: CT CERVICAL SPINE WO CON INDICATIONS: midline cervical spine pain C6-T3 TECHNIQUE: Noncontrast 3 mm thick sections acquired from the skull base to the T4 level. Sagittal and coronal reformats were then constructed. For radiation dose reduction, the following was used: automated exposure control, adjustment of mA and/or kV according to patient size. COMPARISON: [facility], CT, CT THORACIC SPINE WO CON, 09/16/2019, 23:53. [facility], CT, CT SOFT TISSUE NECK W CON, 03/11/2019, 9:56. [facility], CR, XR CERVICAL SPINE 2 OR 3 VIEWS, 06/25/2019, 11:43. [facility] [place], CR, XR CERVICAL SPINE 2 OR 3 VIEWS, 04/23/2019, 13:31. [facility], CR, XR CERVICAL SPINE 2V OR 3V, 03/05/2019, 9:32. [facility], CT, CT CERVICAL SPINE WO CON, 12/12/2018, 13:46. FINDINGS: Image quality: Excellent. Bones: No fractures or dislocations. There are extensive post surgical changes with anterior surgical fusion at C3-C7. The alignment appears stable. Grade 1 and bases of C2 on C3. Degenerative facet arthropathy in cervical spine. Visualized superior ribs are intact. Soft tissues: There is mild prevertebral soft tissue thickening at C5-C6 level, unchanged since 02/18/2019. No paravertebral hematomas. No apical pneumothoraces. IMPRESSION: 1. No fracture in cervical spine is identified. 2. Extensive postsurgical changes. The alignment appears stable. 3. Mild prevertebral soft tissue swelling at C5-C6 level, unchanged and most likely postsurgical in nature. No significant discrepancy with the retail shift supervisor radiology preliminary report. Dictated by: Lee Schwartz M.D. on 09/17/2019 at 8:12 Approved by: Lee Schwartz M.D. on 09/17/2019 at 8:19
--- NOTE | 2019-09-16 23:48 | DI.CT.S_ITS ---
PROCEDURE: CT THORACIC SPINE WO CON INDICATIONS: spine pain C6 to T3 TECHNIQUE: Noncontrast 3 mm thick sections acquired through the region of interest in the thoracic spine. Sagittal and coronal reformats were then constructed. For radiation dose reduction, the following was used: automated exposure control. COMPARISON: [facility], CT, CT CERVICAL SPINE WO CON, 12/12/2018, 13:46. [facility], CR, XR CERVICAL SPINE 2V OR 3V, 03/05/2019, 9:32. [facility] [place], CR, XR CERVICAL SPINE 2 OR 3 VIEWS, 04/23/2019, 13:31. [facility], CT, CT CERVICAL SPINE WO CON, 09/16/2019, 23:53. FINDINGS: Image quality: Excellent. Bones: There is normal overall bony alignment. No acute vertebral body compression fractures. No suspicious sclerotic or lytic bony lesions. Central spinal canal is of normal overall caliber. The there are postsurgical changes in lower cervical spine. Mild to moderate degenerative disc disease throughout thoracic spine. There are nerve stimulator leads at T7. Soft tissues: No paravertebral masses or hematomas. Visualized posteromedial lungs appear clear. IMPRESSION: 1. No acute abnormalities in the thoracic spine. 2. Nerve stimulator leads at T7. No significant discrepancy with the overnight caregiver radiology preliminary report. Dictated by: Lee Schwartz M.D. on 09/17/2019 at 8:20 Approved by: Lee Schwartz M.D. on 09/17/2019 at 8:38
[2019-09-17] VITALS (8 sets, daily range): BP systolic 138–151; BP diastolic 64–89; PULSE 76–88; RESP 18; TEMP 36.3–36.9; O2SAT 94–100; BMI 40.8
--- NOTE | 2019-09-17 | DI.ECHO.S_ITS ---
[place] [facility]---------+ [facility] +---------+ : : [address] : [address] : : : : [id number] : : : : Phone: [phone]+ Echocardiogram Report + + :Name: KAYLEE GORE Study Date: 09/17/2019 Height: 64 in : :[facility] Weight: 233 lb : : Gender: Female BSA: 2.1 m2 : :: 1955 Age: 63 yrs BP: 151/89 mmHg: :Reason For Study: CVA : :Ordering Physician: Edmar : :Hospitalist Performed By: Amairani Moore : :Referring: JACQUIE GUIDO : + + Interpretation Summary The patient was in normal sinus rhythm during the exam. The left ventricle is normal in size. The ejection fraction is estimated to be 60-65%. There is no LV thrombus. The right ventricle is normal in size and function. Injection of contrast documented no interatrial shunt. There is mild mitral regurgitation. There is mild to moderate aortic regurgitation. No significant atherosclerotic plaque seen in the aortic arch. Procedure: A two-dimensional transthoracic echocardiogram with color flow and Doppler was performed. The study quality was technically adequate. Comparison is made with the echocardiogram of 01/24/2017. The injection was performed through an intravenous line in the left arm. A saline contrast injection was performed to assess for cardiac shunting. The patient was in normal sinus rhythm during the exam. Left Ventricle: The left ventricle is normal in size. Proximal septal thickening is noted. There is no echo evidence for significant left ventricular outflow tract obstruction. There is no thrombus. The ejection fraction is estimated to be 60-65%. There are no focal wall motion abnormalities. Right Ventricle: The right ventricle is normal in size and function. Atria: Both atria are normal in size. There is no Doppler evidence for an interatrial shunt. Injection of contrast documented no interatrial shunt. Mitral Valve: The mitral valve leaflets are mildly calcified. There is mild mitral regurgitation. Aortic Valve: The aortic valve is trileaflet. The aortic valve opens well. The aortic valve is slightly calcified. There is no aortic valve stenosis. There is mild to moderate aortic regurgitation. Tricuspid Valve: The tricuspid valve is normal in structure and function. There is trace tricuspid regurgitation. Pulmonic Valve: The pulmonic valve is not well seen, but is grossly normal. There is trace pulmonic regurgitation. Great Vessels: The aortic root is normal size. The ascending aorta is normal in size. The inferior vena cava was not well visualized. Pericardium/ Pleura There is no pericardial effusion. There has been no significant change since the previous study. MMode/2D Measurements & Calculations LVIDd: 4.9 cm LVOT diam: 2.2 cm LVIDs: 3.2 cm Ao root diam: 2.7 cm FS: 33.8 % asc Aorta Diam: 3.3 cm EPSS: 0.42 cm Ao Arch Diam (Prox Trans): 3.1 cm IVSd: 0.75 cm LVPWd: 0.83 cm LV alcantara. diameter/BSA (cm/m^2): 2.4 LV sys. diameter/BSA (cm/m^2): 1.6 LA A2 area: 19.4 cm2 RA long axis: 4.1 cm LA A4 area: 20.6 cm2 RA area: 12.4 cm2 LA length (vol): 5.1 cm RA vol: 32.3 ml LA vol: 66.8 ml RA : 15.5 ml/m2 LA vol index: 32.0 ml/m2 RVD1 (basal): 3.3 cm TAPSE: 2.1 cm Doppler Measurements & Calculations Ao V2 max: 161.1 cm/sec LVOT Max Ashish: 117.4 cm/sec Ao V2 mean: 102.0 cm/sec LV V1 max P.5 mmHg Ao max P.4 mmHg LV V1 VTI: 25.5 cm Ao mean P.9 mmHg LEE(I,D): 2.8 cm2 Ao V2 VTI: 33.8 cm LEE(V,D): 2.7 cm2 sev ratio: 0.75 LEE indexed to BSA (cm^2/m^2): 1.3 AI P1/2t: 432.1 msec AI dec slope: 302.5 cm/sec2 Med Peak E' Ashish: 8.9 cm/sec PA V2 max: 82.0 cm/sec Lat Peak E' Ashish: 8.8 cm/sec PA V2 mean: 58.6 cm/sec PA mean P.5 mmHg PA pr(Accel): 15.6 mmHg SV(LVOT): 95.0 ml Reading Physician:11:43 AM
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
[2019-09-17 00:27] LABS: Magnesium 1.7 mg/dL (1.6-2.3)
[2019-09-17 00:40] LABS: Troponin I < 0.012 ng/mL (0.01-0.034)
[2019-09-17 00:56] LABS: RBC Urine None Seen (0-5/HPF)
[2019-09-17 00:58] LABS: Bilirubin Urine UA NEGATIVE (NEGATIVE); Color Urine UA YELLOW; Glucose Urine UA NEGATIVE (Negative); Ketones Urine UA NEGATIVE (NEGATIVE); Leukocyte Esterase Urine UA 1+ (NEGATIVE); Nitrite Urine UA POSITIVE (Negative); Occult Blood Urine UA NEGATIVE (Negative); Protein Urine UA NEGATIVE (Negative); Urobilinogen Urine UA 0.2 E.U./dL (0.2)
[2019-09-17 00:59] LABS: Thyroid Stimulating Hormone < 0.02 uIU/mL (0.47-4.68)
[2019-09-17 01:00] LABS: Appearance Urine UA Slightly Cloudy; pH Urine UA 6.5 (4.5-8.0)
[2019-09-17] MEDS: MAG HYDROX/ALUM/SIMETH 30 ML UDC PO ×2 (01:01→06:53)
[2019-09-17] MEDS: KETOROLAC 15 MG/ML VIAL IV ×3 (01:02→13:27)
[2019-09-17] MEDS: PANTOPRAZOLE 40 MG VIAL IV ×2 (01:03→10:36)
[2019-09-17 01:05] LABS: Ur Creatinine 20 (Normal)
[2019-09-17 01:06] LABS: UR Morphine/Opiate cutoff 300 Negative (Negative); Ur Specific Gravity 1.025 (Normal); Urine Amphetamines Negative (Negative); Urine Barbiturates Negative (Negative); Urine Benzodiazepines Negative (Negative); Urine Cocaine Negative (Negative); Urine MDMA Negative (Negative); Urine Methadone Negative (Negative); Urine Methamphetamines Negative (Negative); Urine Oxycodone Positive (Negative); Urine Phencyclidine Negative (Negative); Urine Tetrahydrocannabinol Negative (Negative); Urine Tricyclic Antidepressant Positive (Negative); Urine pH 5 (Normal)
[2019-09-17 01:09] LABS: Squamous Epithelial Cell Urine 0-1 /HPF (0-5/HPF); WBC Urine 1-5/HPF (0-5/HPF)
[2019-09-17 01:10] LABS: Bacteria Urine Many (>30); Culture Indicated Urine Specimen Cultured
--- NOTE | 2019-09-17 01:59 | PC.ADMIT ---
Addendum entered by Aparna Tovar R.N. 09/17/19 06:56: States indigestion is still present but not as severe. Also feels head/neck pain has improved but still rating severity as 7/10. Medicated with Maalox for indigestion and Toradol for pain. Addendum entered by Aparna Tovar R.N. 09/17/19 03:24: Patient still complaining of indigestion; medicated with Tums. Original Note: Patient admitted to room 218 from ER per stretcher but was able to walk from stretcher to bed with assistance. Is alert and oriented except did not know age or date. Breath sounds CTA with RA sat of 100%; on continuous pulse oximetry. HRR; telemetry reading was SR with 1st degree AVB. Complaint of indigestion but denies nausea; Maalox and Protonix given. BT present and abdomen is soft. Voided; complains of burning and states she has chronic urgency/frequency and sometimes is incontinent of urine. UA sent to lab as ordered. Is able to move self in bed. Reports she uses walker at home and never walks alone. NIH was 4 as incorrect on age, left arm/leg drift and partial left field visual loss. States left eye is blurry. During admission physical assessment patient suddenly became unresponsive and would not arouse even with a sternal rub. JONATHAN Novoa, to bedside to assess patient. During the approximate 5 minute episode patient would suddenly open her eyes, sit up in bed and gasp then immediately collapsed back onto back. Once fully aroused did not remember what had occurred. Patient does report she has these black out episodes which is due to conversion reaction disorder. Noted to have old yellowed bruises on upper left arm and abdomen and a small abrasion at base of anterior right thumb. Complaint of 8/10 head/neck pain and was medicated with Toradol after which patient states pain is 7/10; PALEONTOLOGICAL HELPER is aware. Bilateral calf SCD's applied. Fall risk score is high and bed alarm is activated. [email or web address] [facility] [id number] Admission Note: The patient,Daphnie Kelly,63 y/o, was given written information regarding hospital policies, unit procedures and contact persons. Patient's smoking status: Former smoker. Vital Signs - 8 hr 09/16/19 20:12 09/17/19 00:23 09/17/19 00:48 Temperature 98 F 98.3 F Pulse Rate 93 H 78 Respiratory Rate 20 18 Blood Pressure 151/89 H Blood Pressure [Left Arm] 130/61 Pulse Oximetry 100 100 100
[2019-09-17] MEDS: SODIUM CHLORIDE 0.9% IV ×2 (03:06→12:34)
[2019-09-17] MEDS: SODIUM CHLORIDE 0.9% 250 ML 21 ML IV (03:06)
[2019-09-17] MEDS: CEFUROXIME IV ×2 (03:06→12:34)
[2019-09-17] MEDS: SODIUM CHLORIDE 0.9% FLUSH 10 ML IV ×2 (03:07→10:37)
[2019-09-17] MEDS: CALCIUM CARBONATE 500 MG TAB 1000 MG PO ×2 (03:23→10:38)
--- NOTE | 2019-09-17 03:44 | DI.CT.S_ITS ---
PROCEDURE: CT ANGIO HEAD AND NECK INDICATIONS: CVA left-sided weakness TECHNIQUE: Pre-contrast 4.5 mm thick sections acquired from the foramen magnum to the vertex. After the administration of intravenous contrast, 1 mm thick sections acquired from the aortic arch through the [place] of [place]. Post-contrast 4.5 mm thick sections then re-acquired from the foramen magnum to the vertex. 3-dimensional bmoflzg-ykackiotv-hhinujdvyg (MIP) and/or volume rendering reformats were acquired of the central intracranial vasculature and neck separately. COMPARISON: [facility], CT, HEAD WITHOUT CONTRAST, 04/07/2015, 20:02. [facility], MR, BRAIN WITHOUT CONTRAST, 08/06/2017, 7:53. [facility], CR, XR CHEST 2V, 11/15/2017, 23:51. [facility], CT, CT STROKE, 09/16/2019, 20:39. FINDINGS: Image quality: Excellent. BRAIN: CSF spaces: Ventricles are normal in size and shape. Basal cisterns are patent. No extra-axial fluid collections. Brain: No midline shift. No intracranial bleeds or masses. Mireles-white matter interface appears intact. Skull and face: Calvarium and facial bones appear intact, without suspicious lesions. Orbits appear normal. Sinuses: Sinuses and mastoids are clear. HEAD CT ANGIOGRAPHY: Anterior circulation: Intracranial internal carotid arteries are normal in size and flow. The flow within the paired anterior cerebral arteries is normal and symmetric. The flow within the middle cerebral arteries is normal and symmetric. The anterior communicating artery is seen. No aneurysms are seen. Posterior circulation: Visualized portions of the vertebral arteries demonstrate normal caliber, and join to form a normal appearing basilar artery. Flow within the posterior cerebral arteries is normal and symmetric. No aneurysms are seen. NECK CT ANGIOGRAPHY: Carotid system: The great vessels demonstrate a conventional anatomy as they arise from the aortic arch. The origins of the common carotid arteries appear patent. The common carotid arteries demonstrate normal caliber and courses. The bifurcation regions are both widely patent. The internal carotid arteries demonstrate normal calibers and courses. Posterior circulation: The origins of the vertebral arteries both appear widely patent. The more superior extracranial portions of both vertebral arteries also demonstrate normal courses and calibers. They join to form a normal appearing basilar artery. Soft tissues: Visualized neck soft tissues demonstrate no suspicious abnormalities. Bones: No suspicious bony lesions. Visualized cervical spine appears normally aligned. IMPRESSION: 1. No acute intracranial abnormalities. If clinical suspicion for stroke persists, MRI is recommended for further motion. 2. No high-grade stenosis or occlusion in anterior circulations. 3. No high-grade stenosis or occlusion in posterior circulations. 4. No high-grade stenosis or occlusion in cervical carotid arteries bilaterally. 5. No high-grade stenosis or occlusion in cervical vertebral arteries bilaterally. Any quantitative measurements of stenosis were performed using NASCET criteria. Dictated by: Lee Schwartz M.D. on 09/17/2019 at 10:13 Approved by: Lee Schwartz M.D. on 09/17/2019 at 10:30
[2019-09-17 06:00] LABS: Add Manual Diff / Slide Review NO; Basophils Absolute Auto 100 /uL (0-100); Eosinophils Absolute Auto 400 /uL (0-450); Eosinophils Percent Auto 5.6 % (2-4); Hematocrit 35.9 % (36-46); Hemoglobin 12.2 g/dL (12.0-16.0); Lymphocytes Absolute Auto 1900 /uL (1100-4500); Lymphocytes Percent Auto 29.2 % (25-40); Mean Corpuscular HGB Conc 33.9 % (30-36); Mean Corpuscular Volume 88.5 fL (80-100); Monocytes Absolute Auto 500 /uL (0-900); Monocytes Percent Auto 7.8 % (3-14); Neutrophils Absolute Auto 3600 /uL (1500-7000); Neutrophils Percent Auto 56.4 % (50-75); Platelet Count 165 X10^3/uL (150-400); Red Blood Cell Count 4.06 X10^6/uL (4.0-5.2); Red Cell Distribution Width 15.4 % (11.6-14.8); White Blood Cell Count 6.5 X10^3/uL (4.5-11.0)
[2019-09-17 06:07] LABS: Alanine Aminotransferase 15 IU/L (<35); Albumin 3.7 g/dL (3.5-5.0); Albumin Globulin Ratio 1.3 (1.0-2.8); Alkaline Phosphatase 106 U/L (38-126); Aspartate Aminotransferase 20 IU/L (14-36); BUN Creatinine Ratio 18.7 (6-22); Bilirubin Total 0.3 mg/dL (0.2-1.3); Blood Urea Nitrogen 14 mg/dL (7-17); Calcium 8.8 mg/dL (8.4-10.2); Carbon Dioxide 24 mmol/L (22-32); Chloride 110 mmol/L (98-107); Estimated Glomerular Filt Rate > 60.0 mL/min (>60); Globulin 2.8 g/dL (1.7-4.1); Glucose 117 mg/dL (80-110); HEMOLYSIS < 15 (0-50); Sodium 138 mmol/L (137-145); Total Protein 6.5 g/dL (6.3-8.2)
[2019-09-17 06:15] LABS: Hemoglobin A1C% w Est Avg Glu 5.4 % (4.0-6.0)
[2019-09-17 06:22] LABS: Free T4, Direct Thyroxine 1.19 ng/dL (0.78-2.19)
[2019-09-17] MEDS: METFORMIN HCL 500 MG TABLET 1000 MG PO ×2 (10:32→17:39)
[2019-09-17] MEDS: LEVOTHYROXINE 125 MCG TABLET PO (10:32)
[2019-09-17] MEDS: ENOXAPARIN 40 MG/0.4 ML SYRINGE SUBCUT (10:33)
[2019-09-17] MEDS: ASPIRIN EC 81 MG TABLET PO (10:33)
[2019-09-17] MEDS: ACETAMINOPHEN 325 MG TABLET 650 MG PO (10:38)
[2019-09-17] MEDS: MAGNESIUM OXIDE 400 MG TABLET PO (11:00)
--- NOTE | 2019-09-17 13:16 | CM.DANOTE ---
Addendum entered by Trinh Atkins R.N. 09/17/19 14:01: Dr. Madison signed face to face, she can potentially discharge today. Will add orders. Pending discharge summary. Spoke to her case making machine operator, Rhonda Puckett, and stated that patient can contact her if she feels that she needs more hours. She stated, [facility] is a good idea. Original Note: DCP: Case received, EMR reviewed and met with patient. Introduced self and role. Had also received a phone call from Rigoberto at [employer]. His phone number is: [phone]. Was able to obtain history from Rigoberto regarding baseline care and [employer] caregiving information. Patient was also able to update this case making machine operator on her baseline activities at home, and health information. DCP assessment completed with information currently available. Patient is a 63 year old female who admitted yesterday evening to the care of the hospitalist team. PCP: Dr. Martin. Payer: confirmed: Medicare/[place] ([employer]). Patient came to the hospital via family vehicle secondary to her having a fall, and head aches. She sustained a fall on August 28, and has been having head aches. Patient has history of traumatic brain injury. Patient is being checked for a CVA. Received a phone call from Rigoberto at [facility], and gave information. Stated that patient has [employer] caregivers 5 days a week. , who works at [employer] helps patient on weekends. Her [employer] case making machine operator is Rhonda Puckett. Her phone number is: [phone]. Left her a message, for according to patient, she is due for a new assessment, and feels that she needs more hours. She gets over 90 hours a month. Spoke to patient in her room. She is alert and oriented, and was sitting up in her bed. Confirmed that [employer] caregivers come in to the home 5 days a week. On Saturday, they come in between 1:30pm to 6:00pm. , Sat, and , they come in 10:15-3:00pm. On Saturday, they come in from 1:00pm to 4:00pm. Asked her what care that they do, and she stated that they cook her meals, and do house keeping. Asked her if they assist her with showers, and she stated that her does on the week-ends, for she has a shower bench. Patient gets around with a FWW, and has had history of falls. She does have a life line. Stated that she does not cook, and has a seated walker. Discussed home health, and she stated that she has had [facility], and would like this again. She is requesting speech, P.T, and O.T. Will contact [facility]. P:DCP to continue to follow. Will contact [facility] and fax over history and physical, and face sheet. Will start face to face, will need to be signed. Spoke to Hemalatha at [facility], and she is familiar with patient.
--- NOTE | 2019-09-17 14:16 | DIET.PN ---
Dietary Progress Note Assessment: 63y F admitted s/p fall and 2w of migraines referred to nutrition for morbid obesity. Pt reports highest A1c was in mid-7 range at which time her PCP put her on 1,000mg metformin bid. When pt's numbers came into good range, she requested to stay on the metformin for weight loss as she was >300#. A1c in February 2019 was 5.6 and this admission is 5.4. Pt is upset she has been assigned Consistent Carb Diet with 45g limit as she says she does not have Diabetes and prefers not to eat diabetic food. Pt reports losing 100# in past couple years with goal of getting down to 150#. Pt reports it is difficult right now with quarantine because she cannot get out to take walks which is slowing her weight loss. When inquiring about usual dietary intake, pt used cell phone to call a family member to look at name of vegetable pasta in cupboard, called [employer] which she purchases through commissary. When looking up the product, this RD found each serving of pasta contains a serving of vegetables in the form of powdered tomato, carrot, and spinach but no appreciable reduction in carbohydrates, providing 40g CHO per serving. Pt was seen by SLT who recommends mechanical soft textures and thin liquids. HT: 162.5cm WT: 108kg BMI: 40.9 Labs: A1c 5.4 MNA: 10 [place]ine: 18 Nutrition Diagnosis: none at this time Interventions: Consider modifying CCD diet as pt's A1c is 5.4. Diet Order: CCD 3
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
[2019-09-17 16:48] LABS: Cholesterol 135 mg/dL (140-199); HDL Cholesterol 42 mg/dL (40-60); LDL Cholesterol Calculated 79 mg/dL (<100); Triglycerides 71 mg/dL (35-150)
--- NOTE | 2019-09-17 17:51 | PM.DS.1 ---
History of Present Illness History of Present Illness Date Patient Seen: 09/16/19 Chief complaint: head injury s/p fall 08/29/19 Narrative: Written by Martir CASTILLO: Ms. Daphnie Kelly is a 63-year-old right-handed female with complex medical history including asthma, COPD, diabetes type 2 on oral control, hyperlipidemia, hip thyroidism, depression with anxiety, bipolar 1 disorder, claustrophobia, conversion disorder manifesting and blackout periods and chronic pain status post spinal stimulator implantation who presents to the ER following a fall today. The patient has a history of frequent falls and sustained 1 such fall on 08/28 and was evaluated 412 the ER for left leg pain. Imaging was obtained with no significant findings and discharged home. At that time the patient also complained of a headache after having hit her head. The patient reports having a severe headache encompassing her whole head and neck. She has a history of migraine headaches and has associated photophobia, phonophobia and nausea and today reports blurring in the vision of her left eye. Typically her migraines last hours with the longest lasting 4 days. This headache has been continuous for 2 weeks per patient report. The patient describes increasing weakness of the left leg and reports sustaining another fall today. The patient denies dizziness, difficulty word finding dysarthria or difficulty chewing or swallowing. She has a history of blackouts. It is related to conversion syndrome that typically last from 1-15 minutes. She denies complaints of fevers or chills, nasal congestion or sore throat. She has no chest pain or palpitations, shortness of breath cough and denies wheezing. She has epigastric discomfort which she attributes to heartburn but no other abdominal tenderness. She denies problems with constipation or diarrhea but feels she may have a urinary tract infection for which she has an appointment with her primary care provider tomorrow. Upon arrival to the ER the patient has a temperature of 98?, heart rate of 93, blood pressure 130/61, respirations 20 saturating 100% on room air. A CT of the head stroke protocols obtained which was found to be normal for age no mass or hemorrhage. On laboratory analysis the patient has white count of 7.2, hemoglobin of 13.0 and hematocrit of 39.5 and platelets of 220. Her PT is 11.2 with an INR of 1.0 and a PTT of 34. Her electrolytes are within normal limits and she has a BUN of 13 and creatinine 0.81. Her serum glucose is 86. Calcium is 8.7. On ER evaluation the patient receives an NIH score of 4 for left lateral gaze palsy, left arm drift not to bed and left leg drift not to bed. The patient describes weakness going on for days and being progressive which she dates back to her fall 2 weeks ago which would be her last known normal. Her fall today was approximately 9-10 o'clock this morning. The patient is not a candidate for tPA nor neurological intervention. Patient is admitted to the medicine service for CVA with left-sided weakness. Discharge Providers Provider Date of admission: 09/16/19 22:58 Discharge Date: 09/17/19 Primary care physician: Rafy Martin Consults: 09/16/19 23:50 Consult to Discharge Planning Routine Comment: Consult to Occupational Therapy Evaluate & Treat Comment: CVA, left-sided weakness Physician Instructions: Evaluate and treat Consult to Physical Therapy Evaluate & Treat Comment: CVA, left-sided weakness Physician Instructions: Evaluate and Treat Consult to Speech Therapy Evaluate & Treat Comment: CVA, left-sided weakness Physician Instructions: Evaluate and treat 09/17/19 00:00 Consult to Dietitian, Adult Routine Comment: MNA score = 10 Reason For Exam: Morbid obesity 09/17/19 14:02 Consult to Home Health Routine Comment: Reason For Exam: Home health P.T, O.T, Speech Discharge provider: Lupe Madison DO Summary Hospital Course Discharge Diagnosis: 1. Probable acute TIA, present on admission. Resolved. 2. Lower cervical and upper thoracic spinal pain, present on admission. Resolved. 3. Acute UTI, present on admission. Resolving. 4. Elevated blood pressure without diagnosis of hypertension, present on admission. Active. 5. Hyperlipidemia, chronic, present on admission. Stable. 6. COPD, chronic, present on admission. Stable. 7. Bipolar type 1 disorder, depression, and anxiety, chronic, present on admission. Stable. 8. History of diabetes mellitus type 2, now in remission. 9. Hypothyroidism, chronic, present on admission. Stable. 10. Morbid obesity, chronic, present on admission. Stable. Hospital Course: Daphnie Kelly is a 63-year-old right-handed female with a complex medical history including asthma, COPD, diet-controlled diabetes mellitus type 2, hyperlipidemia, hypothyroidism, depression with anxiety, bipolar 1 disorder, claustrophobia, conversion disorder manifesting as blackout periods and chronic back pain status post cervical fusion and low back spinal stimulator who presented to the ED after sustaining ground level fall. 1. Probable acute TIA, present on admission. Resolved. -Neurological symptoms likely secondary to TIA versus headache versus UTI. -Patient presented after ground level fall. Patient sustained previous fall striking her head 2 weeks ago in which she has had persistent migrainous headache (photophobia, phonophobia nausea unresponsive to usual treatment) and left-sided weakness. -Initial NIH 4 score due to left hemianopsia, left arm drift and left leg drift. Repeat NIH 2 due to persistent left upper and lower extremity drift. Continue frequent neurological checks. -EKG demonstrated. Continue to monitor closely on telemetry. Patient was in sinus rhythm first-degree AV block and no significant ectopy. -Allowed for permissive hypertension for 24 hours. Patient's SBP persistently 140s to 150s and recommended lifestyle modification for blood pressure control and if patient fails consider implementation antihypertensive per PCP. -CT brain without contrast did not demonstrate any acute intracranial abnormalities. -CTA head and neck did not demonstrate any acute intracranial abnormalities including high-grade stenosis or occlusion of cerebral or bilateral neck arteries. -Echocardiogram within normal limits and did not demonstrate interatrial shunt or embolic source. -Risk stratified with hemoglobin A1c which was normal at 5.4% and fasting lipid panel which demonstrated excellent lipid control as below. -Continued atorvastatin 40 mg daily at bedtime and added aspirin 81 mg daily for stroke prevention. -Continued physical, occupational and speech therapy evaluation and treatment. Speech recommended soft mechanical diet with thin liquids. Physical therapy recommended continued exercises for subtle left-sided weakness and outpatient PT. Occupational therapy recommended home without any additional needs. 2. Lower cervical and upper thoracic spinal pain, present on admission. Resolved. -Patient is status post anterior cervical fusion of C3-4 and C6-[address] Sotelo on 03/05/2019. Patient reports midline spinal pain at C6 to T3 region with paraspinal muscular pain since her fall 2 weeks ago. Patient describes bilateral shoulder pain into the neck and head which may be source of persistent mild, possibly tension headache. No complaints of radicular pain, numbness or tingling. -CT cervical spine without contrast demonstrated extensive postsurgical changes, mild prevertebral soft tissue swelling at C5-C6 level unchanged and most likely postsurgical in nature, and stable alignment. -CT thoracic spine without contrast demonstrated no acute abnormalities in the thoracic spine and nerve stimulator leads at T7. -Continued home muscle relaxant with tizanidine 4 mg daily. 3. Acute UTI, present on admission. Resolving. -Patient endorses dysuria and urinary hesitancy. Patient has history of overactive bladder and frequency is unchanged. -Urine culture preliminarily growing gram-negative bacilli. Previous urinary tract infection grew pansensitive E coli. -WBC within normal limits, afebrile and no signs of systemic infection. -Received cefuroxime 0.75 g IV every 8 hours and discharged on cefdinir 300 mg twice daily for 4 additional days to complete 5 days total. 4. Elevated blood pressure without diagnosis of hypertension, present on admission. Active. -Blood pressure persistently elevated with SBP 140s to 150s. -Allowed for permissive hypertension for 24 hours. -Recommended continue lifestyle modification including diet and exercise. Provided handout on DASH and Mediterranean diet. If patient's blood pressure does not improve in the next 3 months with lifestyle modification recommend antihypertensive per PCP. 5. Hyperlipidemia, chronic, present on admission. Stable. -Fasting lipid panel demonstrated excellent lipid control with: Total cholesterol 135, triglycerides 71, LDL 79, HDL 42. -Continued home atorvastatin 40 mg daily at bedtime. 6. COPD, chronic, present on admission. Stable. -Patient has no complaints of shortness of breath, cough or wheezing. Does not represent COPD exacerbation. -Continued home albuterol inhaler every 4 hours as needed for shortness of breath. 7. Bipolar type 1 disorder, depression, and anxiety, chronic, present on admission. Stable. -Patient presents with a history of frequent blackouts secondary to conversion disorder. Per patient and family report blackouts last from 1 to 15 minutes. -Continued home medications desvenlafaxine 50 mg daily at bedtime, topiramate 200 mg daily at bedtime, and quetiapine 300 mg daily at bedtime. 8. History of diabetes mellitus type 2, now in remission. -Hemoglobin A1c 5.4% indicative of tight glycemic control. -Continued diet control with carbohydrate consistent/heart healthy diet. Discontinued metformin due to risk of hypoglycemia even though less than 1%. 9. Hypothyroidism, chronic, present on admission. Stable. -TSH less than 0.02 and free T4 normal at 1.19 possibly indicative of subclinical hyperthyroidism. Recommend repeat thyroid function testing in 4-6 weeks per PCP. -Continued levothyroxine 125 mcg daily. 10. Morbid obesity, chronic, present on admission. Stable. -BMI 40.9. -Patient has been implementing lifestyle modification with diet and has lost approximately 70 lbs. Recommended continue lifestyle modification including diet and exercise. -Consulted dietitian and we appreciate her time and recommendations. Exam Vital Signs (past 8 hours): - 09/17/19 12:00 09/17/19 15:25 Temperature 98.4 F 98.5 F Pulse Rate 76 88 Respiratory Rate 18 18 Blood Pressure 141/64 H 143/73 H Pulse Oximetry 95 97 Oxygen Delivery Method Room Air Oxygen Flow Rate 0 Narrative Exam Narrative: General: Older female sitting in bedside chair and in no acute distress, well-developed, well-nourished, appropriately interactive. HEENT: Normocephalic, atraumatic. External ears without defect. Pupils equal, round, and reactive to light. No facial droop. Anicteric sclerae, moist conjunctivae, and no lid lag. Oropharynx free of erythema and cobble stoning with moist mucosa. Neck: Supple with full range of motion. No jugular venous distension. No bruits. No lymphadenopathy or thyromegaly. Cardiovascular: Regular rate and rhythm without murmurs, rubs, or gallops appreciated. Pulmonary: Clear to auscultation bilaterally without crackles, wheezes, or rhonchi. Normal respiratory effort with no use of accessory muscles. Abdomen: Soft, obese, bowel sounds present, nontender, nondistended. No hepatosplenomegaly or masses appreciated. Extremities: No clubbing, cyanosis, or edema. Skin: Normal temperature, turgor, and texture; no rash, ulcers, or subcutaneous nodules appreciated. Neurological: Cranial nerves grossly intact. Subtle left-sided weakness of upper and lower extremities. Reflexes, coordination, and sensory function within normal limits. No hemianopsia or visual field cuts. Known gait impairment and uses forward wheeled walker for ambulation. Psychiatric: Slightly anxious mood and normal affect. Alert and oriented to person, place, and time. Objective Labs Result Diagrams: 09/17/19 05:30 09/17/19 05:30 Labs: Laboratory Results - last 24 hr 09/16/19 09/16/19 09/16/19 20:38 20:38 21:20 WBC 7.2 RBC 4.40 Hgb 13.0 Hct 39.5 MCV 89.7 MCH 29.6 MCHC 33.0 RDW 15.5 H Plt Count 220 Neut % (Auto) 55.5 Lymph % (Auto) 32.2 [place] % (Auto) 7.0 Eos % (Auto) 5.1 H Baso % (Auto) 0.2 Neut # (Auto) 4000 Lymph # (Auto) 2300 [place] # (Auto) 500 Eos # (Auto) 400 Baso # (Auto) 0 PT 11.2 INR 1.0 APTT 34 Sodium 137 Potassium 4.0 Chloride 107 Carbon Dioxide 26 BUN 13 Creatinine 0.81 Estimated GFR > 60.0 BUN/Creatinine Ratio 16.0 Glucose 86 Hemoglobin A1c Calcium 8.7 Magnesium Total Bilirubin AST ALT Alkaline Phosphatase Troponin I Total Protein Albumin Globulin Albumin/Globulin Ratio Triglycerides Cholesterol LDL Cholesterol, Calc HDL Cholesterol TSH Free T4 Urine Color Urine Appearance Urine pH Ur Specific [place] Urine Protein Urine Glucose (UA) Urine Ketones Urine Occult Blood Urine Nitrate Urine Bilirubin Urine Urobilinogen Ur Leukocyte Esterase Urine RBC Urine WBC Ur Squamous Epith Cells Urine Bacteria Ur Culture Indicated? U Opiates 300ng/mL cut Ur Oxycodone Screen Urine Methadone Screen Ur Barbiturates Screen U Tricyclic Antidepress Ur Phencyclidine Scrn Ur Amphetamines Screen U Methamphetamines Scrn Ur MDMA Scrn (Ecstasy) U Benzodiazepines Scrn Urine Cocaine Screen U Marijuana (THC) Screen 09/16/19 09/16/19 09/16/19 21:20 21:20 21:20 WBC RBC Hgb Hct MCV MCH MCHC RDW Plt Count Neut % (Auto) Lymph % (Auto) [place] % (Auto) Eos % (Auto) Baso % (Auto) Neut # (Auto) Lymph # (Auto) [place] # (Auto) Eos # (Auto) Baso # (Auto) PT INR APTT Sodium Potassium Chloride Carbon Dioxide BUN Creatinine Estimated GFR BUN/Creatinine Ratio Glucose Hemoglobin A1c Calcium Magnesium 1.7 Total Bilirubin AST ALT Alkaline Phosphatase Troponin I < 0.012 Total Protein Albumin Globulin Albumin/Globulin Ratio Triglycerides Cholesterol LDL Cholesterol, Calc HDL Cholesterol TSH < 0.02 L Free T4 Urine Color Urine Appearance Urine pH Ur Specific [place] Urine Protein Urine Glucose (UA) Urine Ketones Urine Occult Blood Urine Nitrate Urine Bilirubin Urine Urobilinogen Ur Leukocyte Esterase Urine RBC Urine WBC Ur Squamous Epith Cells Urine Bacteria Ur Culture Indicated? U Opiates 300ng/mL cut Ur Oxycodone Screen Urine Methadone Screen Ur Barbiturates Screen U Tricyclic Antidepress Ur Phencyclidine Scrn Ur Amphetamines Screen U Methamphetamines Scrn Ur MDMA Scrn (Ecstasy) U Benzodiazepines Scrn Urine Cocaine Screen U Marijuana (THC) Screen 09/17/19 09/17/19 09/17/19 00:45 00:45 05:30 WBC 6.5 RBC 4.06 Hgb 12.2 Hct 35.9 L MCV 88.5 MCH 30.0 MCHC 33.9 RDW 15.4 H Plt Count 165 Neut % (Auto) 56.4 Lymph % (Auto) 29.2 [place] % (Auto) 7.8 Eos % (Auto) 5.6 H Baso % (Auto) 1.0 Neut # (Auto) 3600 Lymph # (Auto) 1900 [place] # (Auto) 500 Eos # (Auto) 400 Baso # (Auto) 100 PT INR APTT Sodium Potassium Chloride Carbon Dioxide BUN Creatinine Estimated GFR BUN/Creatinine Ratio Glucose Hemoglobin A1c Calcium Magnesium Total Bilirubin AST ALT Alkaline Phosphatase Troponin I Total Protein Albumin Globulin Albumin/Globulin Ratio Triglycerides Cholesterol LDL Cholesterol, Calc HDL Cholesterol TSH Free T4 Urine Color Yellow Urine Appearance Slightly cloudy Urine pH 6.5 Ur Specific [place] 1.010 Urine Protein Negative Urine Glucose (UA) Negative Urine Ketones Negative Urine Occult Blood Negative Urine Nitrate Positive H Urine Bilirubin Negative Urine Urobilinogen 0.2 Ur Leukocyte Esterase 1+ H Urine RBC None seen Urine WBC 1-5/hpf Ur Squamous Epith Cells 0-1 /hpf Urine Bacteria Many (>30) H Ur Culture Indicated? Specimen cultured U Opiates 300ng/mL cut Negative Ur Oxycodone Screen Positive H Urine Methadone Screen Negative Ur Barbiturates Screen Negative U Tricyclic Antidepress Positive H Ur Phencyclidine Scrn Negative Ur Amphetamines Screen Negative U Methamphetamines Scrn Negative Ur MDMA Scrn (Ecstasy) Negative U Benzodiazepines Scrn Negative Urine Cocaine Screen Negative U Marijuana (THC) Screen Negative 09/17/19 09/17/19 09/17/19 05:30 05:30 05:30 WBC RBC Hgb Hct MCV MCH MCHC RDW Plt Count Neut % (Auto) Lymph % (Auto) [place] % (Auto) Eos % (Auto) Baso % (Auto) Neut # (Auto) Lymph # (Auto) [place] # (Auto) Eos # (Auto) Baso # (Auto) PT INR APTT Sodium 138 Potassium 4.0 Chloride 110 H Carbon Dioxide 24 BUN 14 Creatinine 0.75 Estimated GFR > 60.0 BUN/Creatinine Ratio 18.7 Glucose 117 H Hemoglobin A1c 5.4 Calcium 8.8 Magnesium Total Bilirubin 0.3 AST 20 ALT 15 Alkaline Phosphatase 106 Troponin I Total Protein 6.5 Albumin 3.7 Globulin 2.8 Albumin/Globulin Ratio 1.3 Triglycerides Cholesterol LDL Cholesterol, Calc HDL Cholesterol TSH Free T4 1.19 Urine Color Urine Appearance Urine pH Ur Specific [place] Urine Protein Urine Glucose (UA) Urine Ketones Urine Occult Blood Urine Nitrate Urine Bilirubin Urine Urobilinogen Ur Leukocyte Esterase Urine RBC Urine WBC Ur Squamous Epith Cells Urine Bacteria Ur Culture Indicated? U Opiates 300ng/mL cut Ur Oxycodone Screen Urine Methadone Screen Ur Barbiturates Screen U Tricyclic Antidepress Ur Phencyclidine Scrn Ur Amphetamines Screen U Methamphetamines Scrn Ur MDMA Scrn (Ecstasy) U Benzodiazepines Scrn Urine Cocaine Screen U Marijuana (THC) Screen 09/17/19 05:30 WBC RBC Hgb Hct MCV MCH MCHC RDW Plt Count Neut % (Auto) Lymph % (Auto) [place] % (Auto) Eos % (Auto) Baso % (Auto) Neut # (Auto) Lymph # (Auto) [place] # (Auto) Eos # (Auto) Baso # (Auto) PT INR APTT Sodium Potassium Chloride Carbon Dioxide BUN Creatinine Estimated GFR BUN/Creatinine Ratio Glucose Hemoglobin A1c Calcium Magnesium Total Bilirubin AST ALT Alkaline Phosphatase Troponin I Total Protein Albumin Globulin Albumin/Globulin Ratio Triglycerides 71 Cholesterol 135 L LDL Cholesterol, Calc 79 HDL Cholesterol 42 TSH Free T4 Urine Color Urine Appearance Urine pH Ur Specific [place] Urine Protein Urine Glucose (UA) Urine Ketones Urine Occult Blood Urine Nitrate Urine Bilirubin Urine Urobilinogen Ur Leukocyte Esterase Urine RBC Urine WBC Ur Squamous Epith Cells Urine Bacteria Ur Culture Indicated? U Opiates 300ng/mL cut Ur Oxycodone Screen Urine Methadone Screen Ur Barbiturates Screen U Tricyclic Antidepress Ur Phencyclidine Scrn Ur Amphetamines Screen U Methamphetamines Scrn Ur MDMA Scrn (Ecstasy) U Benzodiazepines Scrn Urine Cocaine Screen U Marijuana (THC) Screen Discharge Plan Discharge Plan Patient Disposition: Home Discharge comment: You're being discharged home. You did not have a stroke. It is unclear what has caused your neurological symptoms but may possibly be due to TIA versus headache versus UTI. You have been prescribed aspirin 81 mg daily in addition to atorvastatin 40 mg daily at bedtime to help prevent strokes. Physical therapy recommends continued exercises which were provided to strengthen your ankle and outpatient physical therapy which you will need to be referred by your primary care provider. Your blood pressure was intermittently elevated and recommend lifestyle modification as discussed including diet and exercise. You were provided handouts regarding DASH and Mediterranean diets to help with blood pressure control. If your blood pressure continues to be high despite lifestyle modification would recommend implementation of a blood pressure medication by your PCP. Your metformin has been discontinued as your diabetes is in remission any may discuss this with your PCP. You have been prescribed cefdinir 300 mg twice daily for 4 days to treat urinary tract infection. Please follow-up with your PCP in the next 1-2 weeks regarding your hospitalization. Discharge orders & Medications Prescriptions: New aspirin 81 mg Tablet,Delayed Release (Dr/Ec) 81 mg PO DAILY Qty: 30 RF: 0 cefdinir 300 mg capsule 300 mg PO BID Qty: 8 RF: 0 Continued montelukast [Singulair] 10 MG tablet 10 mg PO QAM Qty: 0 RF: 0 cholecalciferol (vitamin D3) [Vitamin D3] 2,000 unit Capsule 2,000 unit PO DAILY Qty: 0 RF: 0 levocetirizine 5 MG tablet 5 mg PO DAILY Qty: 0 RF: 0 multivitamin [Multiple Vitamins] 1 EACH tablet 1 tab PO QDAY Qty: 0 RF: 0 cyanocobalamin (vitamin B-12) 1,000 MCG tablet extended release 1,000 mcg PO QDAY Qty: 0 RF: 0 magnesium oxide 400 MG tablet 400 mg PO QDAY Qty: 0 RF: 0 omega [id number]-fish oil [Fish Oil] 1,000 MG capsule 1,000 mg PO QDAY Qty: 0 RF: 0 Ajovy 225 mg/1.5 mL syringe 225 mg SUBCUT QMONTH Qty: 1.5 RF: 6 topiramate 50 mg tablet 50 mg PO .COMPLEX Qty: 120 RF: 2 epinephrine [EpiPen] 0.3 mg/0.3 mL Auto-Injector 0.3 mg IM SEEINSTR PRN (Reason: Anaphylxis) RF: 0 albuterol sulfate [Ventolin HFA] 90 mcg/actuation Hfa Aerosol Inhaler 2 puff INHALATION Q4H PRN (Reason: Wheeze) RF: 0 albuterol sulfate 2.5 mg /3 mL (0.083 %) Solution For Nebulization 2.5 mg INHALATION QID PRN (Reason: Shortness Of Breath) RF: 0 tizanidine 4 mg Capsule 4 mg PO TID PRN (Reason: Muscle spasms) RF: 0 Myrbetriq 50 mg Tablet Extended Release 24 Hr 50 mg PO DAILY RF: 0 [place] 225 mg/1.5 mL Syringe 225 mg SUBCUT QMONTH RF: 0 potassium 99 mg Tablet 99 mg PO DAILY RF: 0 quetiapine 300 mg tablet 300 mg PO BEDTIME RF: 0 desvenlafaxine succinate 50 mg tablet extended release 24 hr 50 mg PO BEDTIME RF: 0 levothyroxine 125 mcg tablet 125 mcg PO DAILY RF: 0 topiramate 50 mg tablet 200 mg PO BEDTIME RF: 0 tizanidine 4 mg tablet 4 mg PO Q8H PRN (Reason: muscle spasticity) Qty: 30 RF: 0 rizatriptan [Maxalt-SITE ENGINEER] 10 mg tablet,disintegrating See Rx Instructions PO .COMPLEX Qty: 10 RF: 2 atorvastatin 40 mg tablet 40 mg PO BEDTIME RF: 0 ketorolac 10 mg tablet 10 mg PO Q6H PRN (Reason: pain) 5 Days Qty: 20 RF: 2 ketorolac 60 mg/2 mL cartridge 30 mg IM Q6-8H PRN (Reason: pain) Qty: 20 RF: 2 Discontinued metformin 1,000 mg tablet 1,000 mg PO BID RF: 0 Follow up/Referrals: Rafy Martin [Primary Care Provider] - 1 Week Diet/Activity/Treatments Diet: Carb-consistent/Diabetic, Low-fat, Low-sodium and Low-cholesterol Diet comment: Soft textured food Activity: Activity as tolerated with forward wheeled walker at all times Visit Report/Discharge Packet Instructions: The Mediterranean Diet and Good Health, The DASH Diet, DI for Transient Ischemic Attack, DI for Urinary Tract Infection (UTI), DI for Headache Discharge Data Primary Care Provider: Rafy Martin Attending Provider: Martir Denton Admit Date/Time: 09/16/19 22:58 Quality VTE Deep Vein Thrombosis/Pulmonary Embolism Present on Admission: No
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
--- NOTE | 2019-09-18 09:21 | CM.DPNOTE ---
Spoke w/ Royal at [facility] this morning, updated on patient's DC yesterday and faxed [facility], orders and DC Summary JW
== END 2019-09-17 18:35 | disposition home or self-care (01) ==
LOC: ED 20:42 → AC 22:59
PROVIDERS: Internal Medicine; Admitting Provider Nurse Practitioner Adult Health; Emergency Provider Emergency Medicine; PCP Physician Assistant Medical; Referring Provider Emergency Medicine; Visit Provider Nurse Practitioner Adult Health
DX: R51 Headache (principal); W18.30XA Fall on same level, unspecified, initial encounter; Z91.81 History of falling; J45.909 Unspecified asthma, uncomplicated; J44.9 Chronic obstructive pulmonary disease, unspecified; E11.9 Type 2 diabetes mellitus without complications; Z79.84 Long term (current) use of oral hypoglycemic drugs; E78.5 Hyperlipidemia, unspecified; E03.9 Hypothyroidism, unspecified; F41.9 Anxiety disorder, unspecified; F31.9 Bipolar disorder, unspecified; R29.704 NIHSS score 4; M54.6 Pain in thoracic spine; M54.2 Cervicalgia; N39.0 Urinary tract infection, site not specified; E66.01 Morbid (severe) obesity due to excess calories; Z68.41 Body mass index [BMI] 40.0-44.9, adult; R03.0 Elevated blood-pressure reading, without diagnosis of hypertension
CPT/HCPCS: 36415; 70450; 70496; 70498; 72125; 72128; 80048; 80053; 80061; 80305; 81001; 82962; 83036; 83735; 84439; 84443; 84484; 85025; 85610; 85730; 87077; 87086; 87186; 92610; 93005; 93306; 96361; 96365; 96366; 96372; 96375; 96376; 97162; 97165; 97530; 99285; G0378; C9113; J0697; J1650; J1885; Q9967

== ENCOUNTER → 2020-08-27 12:38 | Outpatient (CLI) | payer MEDICARE, OTHER, MEDICAID, SELFPAY ==
[2019-03-07 06:08] VITALS: PULSE 70; RESP 18; O2SAT 97
[2019-09-17 00:31] VITALS: BMI 40.8
--- NOTE | 2020-08-27 | DI.RAD.S_ITS ---
PROCEDURE: XR HIP W PEL IF DONE LT 2V INDICATIONS: low back pain TECHNIQUE: AP view of the pelvis and frogleg lateral view of the left hip were obtained. COMPARISON: None. FINDINGS: Bones: [id number] osteoarthritic change of the left hip with marginal osteophytosis and joint space narrowing. Similar degenerative changes on the right. Sacroiliac joint spaces maintained. Soft tissues: No suspicious soft tissue calcifications or masses. IMPRESSION: [id number] bilateral femoroacetabular osteoarthritic change. Dictated by: Topher Boss M.D. on 08/27/2020 at 15:02 Approved by: Topher Boss M.D. on 08/27/2020 at 15:03
--- NOTE | 2020-08-27 | DI.RAD.S_ITS ---
PROCEDURE: XR LUMBAR SPINE MIN 4V INDICATIONS: low back pain TECHNIQUE: Five views of the lumbar spine including flexion and extension lateral views. COMPARISON: None. FINDINGS: There are 5 [id number]-[id number] lumbar type vertebral bodies. Straightening of the usual lumbar lordosis without malalignment or listhesis. Vertebral body heights maintained. Disc height loss from L2-L3 through L5-S1 with associated degenerative endplate changes and facet hypertrophy. No significant change in alignment upon flexion or extension. At least [id number]-[id number] neural foraminal narrowing from L2-L3 through L5-S1. IMPRESSION: Moderate degenerative changes in the lower lumbar spine. No malalignment or listhesis or dynamic instability demonstrated. Dictated by: Topher Boss M.D. on 08/27/2020 at 14:13 Approved by: Topher Boss M.D. on 08/27/2020 at 14:14
== END ==
PROVIDERS: PCP Physician Assistant Medical; Referring Provider Pain Medicine Pain Medicine; Visit Provider Pain Medicine Pain Medicine
DX: M54.5 Low back pain (principal); M51.36 Other intervertebral disc degeneration, lumbar region
CPT/HCPCS: 72110; 73502

== ENCOUNTER 2020-10-21 20:30 | Emergency (ER) | payer MEDICARE, OTHER, MEDICAID, SELFPAY ==
[2019-03-07 06:08] VITALS: PULSE 70; RESP 18; O2SAT 97
[2019-09-17 00:31] VITALS: BMI 40.8
[2020-10-21] VITALS (8 sets, daily range): BP systolic 128–138; BP diastolic 61–65; PULSE 71–89; RESP 20; TEMP 36.6; O2SAT 81–100; BMI 43.9
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
--- NOTE | 2020-10-21 20:46 | DI.CT.S_ITS ---
PROCEDURE: CT ANGIO HEAD AND NECK INDICATIONS: severe headache, dizziness, blurred vision, after chiropract TECHNIQUE: Pre-contrast 4.5 mm thick sections acquired from the foramen magnum to the vertex. After the administration of intravenous contrast, 1 mm thick sections acquired from the aortic arch through the [place] of [place]. Post-contrast 4.5 mm thick sections then re-acquired from the foramen magnum to the vertex. 3-dimensional kjrdaea-mcrwjtqwk-cylhdkaqws (MIP) and/or volume rendering reformats were acquired of the central intracranial vasculature and neck separately. COMPARISON: None. FINDINGS: Image quality: Excellent. BRAIN: CSF spaces: Ventricles are normal in size and shape. Basal cisterns are patent. No extra-axial fluid collections. Brain: No midline shift. No intracranial bleeds or masses. Mireles-white matter interface appears intact. Skull and face: Calvarium and facial bones appear intact, without suspicious lesions. Orbits appear normal. Sinuses: Sinuses and mastoids are clear. HEAD CT ANGIOGRAPHY: Anterior circulation: Intracranial internal carotid arteries are normal in size and flow. The flow within the paired anterior cerebral arteries is normal and symmetric. The flow within the middle cerebral arteries is normal and symmetric. The anterior communicating artery is seen. No aneurysms are seen. Posterior circulation: Visualized portions of the vertebral arteries demonstrate normal caliber, and join to form a normal appearing basilar artery. Flow within the posterior cerebral arteries is normal and symmetric. No aneurysms are seen. NECK CT ANGIOGRAPHY: Carotid system: The great vessels demonstrate a conventional anatomy as they arise from the aortic arch. The origins of the common carotid arteries appear patent. The common carotid arteries demonstrate normal caliber and courses. The bifurcation regions are both widely patent. The internal carotid arteries demonstrate normal calibers and courses. Posterior circulation: The origins of the vertebral arteries both appear widely patent. The more superior extracranial portions of both vertebral arteries also demonstrate normal courses and calibers. They join to form a normal appearing basilar artery. Soft tissues: Visualized neck soft tissues demonstrate no suspicious abnormalities. Bones: No suspicious bony lesions. Visualized cervical spine appears normally aligned. IMPRESSION: No aneurysm, embolus, arterial stenosis, or dissection identified. The vertebral arteries are relatively small and difficult to accurately visualized. Depending on the clinical status follow-up by MR angiography of the cervical region may be warranted. Any quantitative measurements of stenosis were performed using NASCET criteria. Dictated by: Bertin Ferro M.D. on 10/22/2020 at 12:06 Approved by: Bertin Ferro M.D. on 10/22/2020 at 12:18
[2020-10-21] MEDS: METOCLOPRAMIDE 10 MG/2 ML INJ IV (20:53)
[2020-10-21] MEDS: SODIUM CHLORIDE 0.9% 1,000 ML 1000 ML IV (20:53)
[2020-10-21] MEDS: KETOROLAC 30 MG/ML VIAL 15 MG IV (20:53)
[2020-10-21 21:40] LABS: Alanine Aminotransferase 18 IU/L (<35); Albumin 3.5 g/dL (3.5-5.0); Albumin Globulin Ratio 1.3 (1.0-2.8); Alkaline Phosphatase 101 U/L (38-126); Aspartate Aminotransferase 31 IU/L (14-36); BUN Creatinine Ratio 23.7 (6-22); Bilirubin Total 0.3 mg/dL (0.2-1.3); Blood Urea Nitrogen 18 mg/dL (7-17); Carbon Dioxide 26 mmol/L (22-32); Chloride 112 mmol/L (98-107); Creatine Kinase 43 U/L (30-135); Estimated Glomerular Filt Rate > 60.0 mL/min (>60); Globulin 2.7 g/dL (1.7-4.1); Glucose 106 mg/dL (80-110); Potassium 4.4 mmol/L (3.4-5.1); Sodium 142 mmol/L (137-145); Total Protein 6.2 g/dL (6.3-8.2)
[2020-10-21 21:42] LABS: HEMOLYSIS 51 (0-50)
[2020-10-21 21:43] LABS: Add Manual Diff / Slide Review NO; Basophils Absolute Auto 0 /uL (0-100); Basophils Percent Auto 0.9 % (0-2); Eosinophils Absolute Auto 300 /uL (0-450); Hematocrit 33.6 % (36-46); Lymphocytes Absolute Auto 1500 /uL (1100-4500); Lymphocytes Percent Auto 27.8 % (25-40); Mean Corpuscular HGB Conc 32.7 % (30-36); Mean Corpuscular Hemoglobin 29.3 PG (26-34); Mean Corpuscular Volume 89.7 fL (80-100); Monocytes Absolute Auto 400 /uL (0-900); Monocytes Percent Auto 6.8 % (3-14); Neutrophils Absolute Auto 3100 /uL (1500-7000); Neutrophils Percent Auto 58.5 % (50-75); Platelet Count 161 X10^3/uL (150-400); Red Blood Cell Count 3.75 X10^6/uL (4.0-5.2); Red Cell Distribution Width 15.6 % (11.6-14.8); White Blood Cell Count 5.3 X10^3/uL (4.5-11.0)
[2020-10-21 21:51] LABS: Troponin I < 0.012 ng/mL (0.01-0.034)
== END 2020-10-21 23:31 | disposition home or self-care (01) ==
PROVIDERS: Emergency Provider Emergency Medicine; PCP Physician Assistant Medical
DX: G43.909 Migraine, unspecified, not intractable, without status migrainosus (principal); R42 Dizziness and giddiness
CPT/HCPCS: 36415; 70496; 70498; 80053; 82550; 84484; 85025; 96361; 96374; 96375; 99284; J1885; J2765; Q9967

== ENCOUNTER → 2020-11-09 13:26 | Outpatient (CLI) | payer MEDICARE, OTHER, MEDICAID, SELFPAY ==
[2019-03-07 06:08] VITALS: PULSE 70; RESP 18; O2SAT 97
[2019-09-17 00:31] VITALS: BMI 40.8
--- NOTE | 2020-11-09 | DI.MRI.S_ITS ---
PROCEDURE: MR LUMBAR SPINE WO CON INDICATIONS: LOW BACK PAIN TECHNIQUE: Noncontrast sagittal T1 spin echo and T2 fast echo, sagittal STIR, axial T1 and T2 fast spin echo through the lumbar spine. In cases with scoliosis, additional coronal T2 fast spin echo may be performed. COMPARISON: [facility], MR, L-SPINE WITHOUT CONTRAST, 06/14/2010, 10:41. FINDINGS: Image quality: Excellent. Alignment and Curvature: Trace retrolisthesis of L2 on L3 and L3 on L4. Bone Marrow: No acute fracture. Multilevel degenerative endplate sclerosis and spurring. Diffuse facet arthropathy. Scattered small Schmorl's nodes. Spinal Cord: Conus medullaris terminates at the L1-L2 level. Visualized cord demonstrates normal signal and size. Paraspinous Soft Tissues: No paravertebral masses. T12-L1: Normal appearance. L1-L2: Normal appearance. L2-L3: Mild canal narrowing. Partial effacement of both lateral recesses with bilaterally symmetric appearance. Moderate left foraminal stenosis. Mild right foraminal narrowing. This appears progressed on the left L3-L4: Mild canal narrowing. Partial effacement of both lateral recesses with bilaterally symmetric appearance. Moderate to severe right foraminal stenosis with slight nerve root compression. Mild left foraminal narrowing. This appears slightly progressed on both sides since 06/14/10. L4-L5: Moderate central canal narrowing. Partial effacement of both lateral recesses with bilaterally symmetric appearance. Mild right foraminal narrowing. Mild to moderate left foraminal stenosis with borderline nerve root compression. This appears mildly progressed on the left since the prior study. L5-S1: Mild canal narrowing. Lateral recesses appear patent. No foraminal stenosis. IMPRESSION: Slight interval progression in bilateral foraminal stenoses as detailed above Dictated by: Jameson Chen M.D. on 11/09/2020 at 15:24 Approved by: Jameson Chen M.D. on 11/09/2020 at 15:31
== END ==
PROVIDERS: PCP Physician Assistant Medical; Referring Provider Pain Medicine Pain Medicine; Visit Provider Pain Medicine Pain Medicine
DX: M54.5 Low back pain (principal); M48.061 Spinal stenosis, lumbar region without neurogenic claudication
CPT/HCPCS: 72148

== ENCOUNTER 2020-11-10 21:20 | Emergency (ER) | payer MEDICARE, OTHER, MEDICAID, SELFPAY ==
[2019-03-07 06:08] VITALS: PULSE 70; RESP 18; O2SAT 97
[2019-09-17 00:31] VITALS: BMI 40.8
[2020-11-10 21:25] VITALS: BP 145/85; PULSE 92; RESP 16; TEMP 37; O2SAT 97
--- NOTE | 2020-11-10 21:29 | DI.RAD.S_ITS ---
PROCEDURE: XR HAND RT MIN 3V INDICATIONS: hyperflexed using a hand drill TECHNIQUE: 3 views of the hand(s) acquired. COMPARISON: None. FINDINGS: Bones: No fractures or dislocations. Carpal bones are normally aligned. No suspicious bony lesions. Soft tissues: No suspicious soft tissue calcifications. IMPRESSION: No acute fracture. No osseous lesion. If symptoms and/or clinical suspicion for pathology persist, further assessment with repeat, or advanced imaging (e.g., CT, MRI, or bone scan) may be helpful for further assessment. Dictated by: Latoya Hameed M.D. on 11/10/2020 at 22:01 Approved by: Latoya Hameed M.D. on 11/10/2020 at 22:02
--- NOTE | 2020-11-10 21:29 | DI.RAD.S_ITS ---
PROCEDURE: XR WRIST RT MIN 3V INDICATIONS: hyperflexed using a hand drill TECHNIQUE: 4 views of the wrist were acquired. COMPARISON: None. FINDINGS: Bones: No fractures . Widening of the scapholunate interval. No suspicious bony lesions. Scaphoid view: Negative Soft tissues: No suspicious soft tissue calcifications. IMPRESSION: 1. Widening of the scapholunate interval, suggestive of scapholunate ligamentous injury. This could be further assessed with MRI arthrography, if clinically indicated. 2. No acute fracture. No osseous lesion. If symptoms and/or clinical suspicion for pathology persist, further assessment with repeat, or advanced imaging (e.g., CT, MRI, or bone scan) may be helpful for further assessment. Dictated by: Latoya Hameed M.D. on 11/10/2020 at 22:02 Approved by: Latoya Hameed M.D. on 11/10/2020 at 22:03
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
[2020-11-11] MEDS: IBUPROFEN 400 MG TABLET PO (01:17)
[2020-11-11] MEDS: OXYCODONE/ACETAMINOPHEN 5/325 TABLET 1 TAB PO (01:18)
[2020-11-11 01:43] VITALS: BP 138/78; PULSE 88; RESP 16; O2SAT 98
== END 2020-11-11 01:44 | disposition home or self-care (01) ==
PROVIDERS: Emergency Provider Emergency Medicine; PCP Physician Assistant Medical
DX: S63.501A Unspecified sprain of right wrist, initial encounter (principal); S66.911A Strain of unspecified muscle, fascia and tendon at wrist and hand level, right hand, initial encounter
CPT/HCPCS: 73110; 73130; 99283

== ENCOUNTER 2021-01-17 16:10 | Emergency (ER) | payer MEDICARE, OTHER, MEDICAID, SELFPAY ==
[2019-03-07 06:08] VITALS: PULSE 70; RESP 18; O2SAT 97
[2019-09-17 00:31] VITALS: BMI 40.8
[2021-01-17] VITALS (15 sets, daily range): BP systolic 117–169; BP diastolic 61–79; PULSE 74–86; RESP 10–32; TEMP 36.2; O2SAT 96–100
[2021-01-17 16:53] LABS: COVID19 -Nasal RAPID Negative (Negative)
--- NOTE | 2021-01-17 17:50 | DI.CT.S_ITS ---
PROCEDURE: CT HEAD/BRAIN WO CON INDICATIONS: Focal weakess UE TECHNIQUE: Noncontrast 4.5 mm thick angled axial sections acquired from the foramen magnum to the vertex, with coronal and sagittal reformats. For radiation dose reduction, the following was used: automated exposure control, adjustment of mA and/or kV according to patient size. COMPARISON: [facility], CT, HEAD WITHOUT CONTRAST, 04/07/2015, 20:02. FINDINGS: Image quality: Excellent. CSF spaces: Basal cisterns are patent. No extra-axial fluid collections. The ventricles are symmetric in size and shape. Brain: No intracranial bleeds or masses. There is cerebral volume loss for age, with resultant ventricular and sulcal prominence. There are periventricular and deep white matter chronic small vessel ischemic changes. There is intracranial internal carotid artery atherosclerosis. Skull and face: Calvarium and visualized facial bones appear intact, without suspicious lesions. Sinuses: Visualized sinuses and mastoids are clear. IMPRESSION: Mild atrophy and chronic ischemic change without acute hemorrhage or mass effect. Approved by: Jose Manuel Rowan M.D. on 01/17/2021 at 17:48
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
[2021-01-17 18:21] LABS: Add Manual Diff / Slide Review NO; Basophils Absolute Auto 100 /uL (0-100); Basophils Percent Auto 1.2 % (0-2); Eosinophils Absolute Auto 200 /uL (0-450); Hematocrit 37.1 % (36-46); Hemoglobin 12.2 g/dL (12.0-16.0); Lymphocytes Absolute Auto 1700 /uL (1100-4500); Lymphocytes Percent Auto 23.4 % (25-40); Mean Corpuscular HGB Conc 32.9 % (30-36); Mean Corpuscular Hemoglobin 28.5 PG (26-34); Mean Corpuscular Volume 86.7 fL (80-100); Monocytes Absolute Auto 400 /uL (0-900); Monocytes Percent Auto 6.1 % (3-14); Neutrophils Absolute Auto 4700 /uL (1500-7000); Neutrophils Percent Auto 66.3 % (50-75); Platelet Count 216 X10^3/uL (150-400); Red Blood Cell Count 4.28 X10^6/uL (4.0-5.2); Red Cell Distribution Width 14.4 % (11.6-14.8); White Blood Cell Count 7.1 X10^3/uL (4.5-11.0)
[2021-01-17 18:34] LABS: Prothrombin Time 10.9 SECONDS (10.1-12.7)
[2021-01-17 18:37] LABS: PTT Partial Thromboplastin Tim 35 SECONDS (26.4-36.2)
[2021-01-17 18:39] LABS: Alanine Aminotransferase 17 IU/L (<35); Albumin 4.1 g/dL (3.5-5.0); Albumin Globulin Ratio 1.4 (1.0-2.8); Alkaline Phosphatase 139 U/L (38-126); Aspartate Aminotransferase 23 IU/L (14-36); BUN Creatinine Ratio 23.8 (6-22); Bilirubin Total 0.3 mg/dL (0.2-1.3); Blood Urea Nitrogen 20 mg/dL (7-17); Calcium 8.8 mg/dL (8.4-10.2); Carbon Dioxide 24 mmol/L (22-32); Chloride 107 mmol/L (98-107); Estimated Glomerular Filt Rate > 60.0 mL/min (>60); Glucose 86 mg/dL (80-110); HEMOLYSIS < 15 (0-50); Potassium 3.6 mmol/L (3.4-5.1); Sodium 138 mmol/L (137-145); Total Protein 7.1 g/dL (6.3-8.2)
[2021-01-17 18:50] LABS: Troponin I < 0.012 ng/mL (0.01-0.034)
[2021-01-17] MEDS: METOCLOPRAMIDE 10 MG/2 ML INJ IV (19:23)
[2021-01-17] MEDS: SODIUM CHLORIDE 0.9% 1,000 ML 1000 ML IV (19:23)
[2021-01-17] MEDS: ACETAMINOPHEN 325 MG TABLET 975 MG PO (19:23)
[2021-01-17] MEDS: KETOROLAC 30 MG/ML VIAL 15 MG IV (19:23)
--- NOTE | 2021-01-17 19:44 | DI.CT.S_ITS ---
PROCEDURE: CT ANGIO HEAD AND NECK INDICATIONS: UE weakness, headache TECHNIQUE: After the administration of intravenous contrast, 1 mm thick sections acquired from the aortic arch through the [place]. Post-contrast 4.5 mm thick sections then re-acquired from the foramen magnum to the vertex. 3-dimensional zzvxnxv-mqqwahkzz-aqvcrshmpb (MIP) and/or volume rendering reformats were acquired of the central intracranial vasculature and neck separately. COMPARISON: [facility], CT, CT HEAD/BRAIN WO CON, 01/17/2021, 18:14. [facility], CT, CT ANGIO HEAD AND NECK, 10/21/2020, 20:58. [facility], CT, CT ANGIO HEAD AND NECK, 09/17/2019, 8:49. FINDINGS: Image quality: Excellent. BRAIN: CSF spaces: Ventricles are normal in size and shape. Basal cisterns are patent. No extra-axial fluid collections. Brain: No midline shift. No intracranial bleeds or masses. Mireles-white matter interface appears intact. Skull and face: Calvarium and facial bones appear intact, without suspicious lesions. Orbits appear normal. Sinuses: Sinuses and mastoids are clear. HEAD CT ANGIOGRAPHY: Anterior circulation: Intracranial internal carotid arteries are normal in size and flow. The flow within the paired anterior cerebral arteries is normal and symmetric. The flow within the middle cerebral arteries is normal and symmetric. The anterior communicating artery is seen. No aneurysms are seen. Posterior circulation: Visualized portions of the vertebral arteries demonstrate normal caliber, and join to form a normal appearing basilar artery. Flow within the posterior cerebral arteries is normal and symmetric. No aneurysms are seen. NECK CT ANGIOGRAPHY: Carotid system: The great vessels demonstrate a conventional anatomy as they arise from the aortic arch. The origins of the common carotid arteries appear patent. The common carotid arteries demonstrate normal caliber and courses. The bifurcation regions are both widely patent. The internal carotid arteries demonstrate normal calibers and courses. Posterior circulation: The origins of the vertebral arteries both appear widely patent. The more superior extracranial portions of both vertebral arteries also demonstrate normal courses and calibers. They join to form a normal appearing basilar artery. Soft tissues: Visualized neck soft tissues demonstrate no suspicious abnormalities. Thyroid is surgically absent. Bones: No suspicious bony lesions. Postsurgical changes are again seen from cervical spine fixation. No acute osseous abnormality. Patient is edentulous. IMPRESSION: No hemodynamically significant arterial stenosis or occlusion. Any quantitative measurements of stenosis were performed using NASCET criteria. Dictated by: Mike Mederos M.D. on 01/17/2021 at 21:12 Approved by: Mike Mederos M.D. on 01/17/2021 at 21:19
[2021-01-17] MEDS: MAGNESIUM SULFATE 2 GM/50 ML PIGGYBACK IV (20:54)
[2021-01-17] MEDS: diphenhydrAMINE 50 MG/ML VIAL IV (20:54)
[2021-01-17] MEDS: DEXAMETHASONE 10 MG/ML VIAL IV (23:36)
[2021-01-17] MEDS: diazePAM 5 MG TABLET PO (23:36)
== END 2021-01-18 00:05 | disposition home or self-care (01) ==
PROVIDERS: Emergency Medicine; Emergency Provider Student in an Organized Health Care Education/Training Program; PCP Physician Assistant Medical; Referring Provider Psychiatry & Neurology Neurology
DX: F43.0 Acute stress reaction (principal); G43.909 Migraine, unspecified, not intractable, without status migrainosus; G47.33 Obstructive sleep apnea (adult) (pediatric); R42 Dizziness and giddiness; Z20.822 Contact with and (suspected) exposure to COVID-19
CPT/HCPCS: 36415; 70450; 70496; 70498; 80053; 84484; 85025; 85610; 85730; 87635; 93005; 96361; 96374; 96375; 99284; C9803; J1100; J1200; J1885; J2765; J3475

== ENCOUNTER 2021-03-29 17:49 | Emergency (ER) | payer MEDICARE, OTHER, MEDICAID, SELFPAY ==
[2019-03-07 06:08] VITALS: PULSE 70; RESP 18; O2SAT 97
[2019-09-17 00:31] VITALS: BMI 40.8
[2021-03-29 18:29] VITALS: BP 148/65; PULSE 83; RESP 18; TEMP 36.1; O2SAT 97; BMI 42.9
[2021-03-29 20:02] LABS: Bacteria Urine Many (>30); RBC Urine 5-10/HPF (0-5/HPF); Squamous Epithelial Cell Urine 1-5 /HPF (0-5/HPF); Transitional Epi Cells Urine 5-10/HPF (0-5/HPF); WBC Urine 30-100/HPF (0-5/HPF)
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
[2021-03-29] MEDS: HYDROCODONE/ACET 5/325 PREPACK 1 BOTTLE MISC (21:00)
[2021-03-29] MEDS: cephALEXin 250 MG PREPACK 1 BOTTLE MISC (21:00)
== END 2021-03-29 21:07 | disposition home or self-care (01) ==
PROVIDERS: Emergency Provider Emergency Medicine; PCP Physician Assistant Medical
DX: N12 Tubulo-interstitial nephritis, not specified as acute or chronic (principal)
CPT/HCPCS: 81003; 81015; 87077; 87086; 87186; 99282; 99283

== ENCOUNTER → 2021-04-21 14:35 | Outpatient (CLI) | payer MEDICARE, OTHER, MEDICAID, SELFPAY ==
[2019-03-07 06:08] VITALS: PULSE 70; RESP 18; O2SAT 97
[2019-09-17 00:31] VITALS: BMI 40.8
--- NOTE | 2021-04-21 | DI.RAD.S_ITS ---
PROCEDURE: XR KNEE LT 3V INDICATIONS: PAIN IN LEFT KNEE TECHNIQUE: 3 views of the knee were acquired. COMPARISON: [facility], , XR KNEE LT 3V, 08/30/2019, 16:06. FINDINGS: Bones: No fractures or dislocations. No suspicious bony lesions. Knee arthroplasty has been performed. Soft tissues: No joint effusion. No suspicious soft tissue calcifications. IMPRESSION: Expected appearance of knee arthroplasty. No acute fracture. No osseous lesion. If symptoms and/or clinical suspicion for pathology persist, further assessment with repeat, or advanced imaging (e.g., CT or bone scan) may be helpful for further assessment. Dictated by: Latoya Hameed M.D. on 04/21/2021 at 16:16 Approved by: Latoya Hameed M.D. on 04/21/2021 at 16:16
== END ==
PROVIDERS: PCP Physician Assistant Medical; Referring Provider Acupuncturist; Visit Provider Acupuncturist
DX: M25.562 Pain in left knee (principal); Z96.652 Presence of left artificial knee joint
CPT/HCPCS: 73562

== ENCOUNTER 2021-06-01 20:11 | Emergency (ER) | payer MEDICARE, OTHER, MEDICAID, SELFPAY ==
[2019-03-07 06:08] VITALS: PULSE 70; RESP 18; O2SAT 97
[2019-09-17 00:31] VITALS: BMI 40.8
--- NOTE | 2021-06-01 20:19 | DI.RAD.S_ITS ---
PROCEDURE: XR SHOULDER LT MIN 2V INDICATIONS: fall with shoulder pain TECHNIQUE: 3 views of the shoulder were acquired. COMPARISON: [facility], CR, XR SHOULDER RT MIN 2V, 04/22/2018, 12:59. FINDINGS: Bones: No acute fracture or dislocation. Severe hypertrophic osteoarthritic changes of the left acromioclavicular joint. Moderate degenerative changes of the left glenohumeral joint. Visualized ribs appear intact. Postsurgical changes involving the left lower neck. Postsurgical changes of prior ACDF. Soft tissues: No suspicious soft tissue calcifications. Visualized portions of the lungs are clear. IMPRESSION: Left shoulder without acute fracture or dislocation. Severe hypertrophic osteoarthritic changes of the left acromioclavicular joint. Moderate left glenohumeral osteoarthrosis. Dictated by: Jarred Daniel M.D. on 06/01/2021 at 20:30 Approved by: Jarred Daniel M.D. on 06/01/2021 at 20:32
[2021-06-01 20:22] VITALS: BP 136/75; PULSE 71; RESP 15; TEMP 36.6; O2SAT 95; BMI 39.6
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
== END 2021-06-01 21:05 | disposition home or self-care (01) ==
PROVIDERS: Emergency Provider Emergency Medicine; PCP Physician Assistant Medical
DX: S40.012A Contusion of left shoulder, initial encounter (principal); Z87.891 Personal history of nicotine dependence; W06.XXXA Fall from bed, initial encounter; Y93.84 Activity, sleeping
CPT/HCPCS: 73030; 99281; 99283

== ENCOUNTER 2021-07-03 20:43 | Emergency (ER) | payer MEDICARE, OTHER, MEDICAID, SELFPAY ==
[2019-03-07 06:08] VITALS: PULSE 70; RESP 18; O2SAT 97
[2019-09-17 00:31] VITALS: BMI 40.8
[2021-07-03 21:22] VITALS: BP 138/71; PULSE 97; RESP 16; TEMP 36.1; O2SAT 100; BMI 38.0
--- NOTE | 2021-07-03 21:25 | DI.RAD.S_ITS ---
PROCEDURE: XR KNEE RT 3V INDICATIONS: heard a pop in knee upon standing TECHNIQUE: 3 views of the knee were acquired. COMPARISON: [facility] [place], CR, XR KNEE ARTHRITIC SERIES LT, 04/28/2019, 9:06. FINDINGS: Bones: Right knee total arthroplasty. No fractures or dislocations. No suspicious bony lesions. Soft tissues: Small joint effusion. No suspicious soft tissue calcifications. IMPRESSION: Right knee total arthroplasty. No fracture or dislocation. Small knee joint effusion. Dictated by: Lee Schwartz M.D. on 07/03/2021 at 22:36 Approved by: Lee Schwartz M.D. on 07/03/2021 at 22:37
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
[2021-07-04] MEDS: OXYCODONE/ACETAMINOPHEN 5/325 TABLET 1 TAB PO (04:08)
== END 2021-07-04 04:15 | disposition home or self-care (01) ==
PROVIDERS: Emergency Provider Emergency Medicine; PCP Physician Assistant Medical
DX: M25.461 Effusion, right knee (principal); S83.91XA Sprain of unspecified site of right knee, initial encounter; Z87.891 Personal history of nicotine dependence; Z96.651 Presence of right artificial knee joint; X58.XXXA Exposure to other specified factors, initial encounter; Y93.89 Activity, other specified; Y92.39 Other specified sports and athletic area as the place of occurrence of the external cause; Z88.5 Allergy status to narcotic agent
CPT/HCPCS: 73562; 99283

== ENCOUNTER 2021-07-30 18:27 | Emergency (ER) | payer MEDICARE, OTHER, MEDICAID, SELFPAY ==
[2019-03-07 06:08] VITALS: PULSE 70; RESP 18; O2SAT 97
[2019-09-17 00:31] VITALS: BMI 40.8
[2021-07-30 18:58] VITALS: BP 122/56; PULSE 81; RESP 16; TEMP 37.1; O2SAT 97; BMI 36.4
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
[2021-07-30] MEDS: KETOROLAC 30 MG/ML VIAL 15 MG IV (21:19)
[2021-07-30] MEDS: SODIUM CHLORIDE 0.9% 1,000 ML 1000 ML IV (21:19)
[2021-07-30] MEDS: METOCLOPRAMIDE 10 MG/2 ML INJ IV (21:19)
[2021-07-30] MEDS: ACETAMINOPHEN 325 MG TABLET 975 MG PO (22:53)
[2021-07-30] MEDS: diazePAM 5 MG TABLET PO (22:54)
[2021-07-30] MEDS: DEXAMETHASONE 10 MG/ML VIAL IV (22:54)
[2021-07-30 23:51] VITALS: BP 112/58; PULSE 60; RESP 16; O2SAT 95
== END 2021-07-31 00:11 | disposition home or self-care (01) ==
PROVIDERS: Emergency Provider Emergency Medicine; PCP Physician Assistant Medical
DX: G43.909 Migraine, unspecified, not intractable, without status migrainosus (principal); Z88.5 Allergy status to narcotic agent; Z88.8 Allergy status to other drugs, medicaments and biological substances; Z87.891 Personal history of nicotine dependence
CPT/HCPCS: 96361; 96374; 96375; 99284; J1100; J1885; J2765

== ENCOUNTER 2021-08-14 15:22 | Emergency (ER) | payer MEDICARE, OTHER, MEDICAID, SELFPAY ==
[2019-03-07 06:08] VITALS: PULSE 70; RESP 18; O2SAT 97
[2019-09-17 00:31] VITALS: BMI 40.8
[2021-08-14 15:34] VITALS: BP 142/63; PULSE 68; RESP 17; TEMP 36.3; O2SAT 97; BMI 35.5
--- NOTE | 2021-08-14 15:39 | DI.RAD.S_ITS ---
PROCEDURE: XR HIP W PEL IF DONE LT 2V INDICATIONS: fall TECHNIQUE: AP pelvis with lateral view(s) of the left hip(s). COMPARISON: [facility], CR, XR HIP W PEL IF DONE LT 2V, 08/27/2020, 12:40. FINDINGS: Bones: No fractures or dislocations. Pelvic ring appears intact. No suspicious bony lesions. Soft tissues: The visualized bowel gas pattern is normal. No suspicious soft tissue calcifications. IMPRESSION: No fracture identified. If concern for occult fracture recommend CT bony pelvis. Dictated by: Edson Bueno M.D. on 08/14/2021 at 16:01 Approved by: Edson Bueno M.D. on 08/14/2021 at 16:02
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
== END 2021-08-14 16:23 | disposition home or self-care (01) ==
PROVIDERS: Emergency Provider Emergency Medicine; PCP Physician Assistant Medical
DX: S70.02XA Contusion of left hip, initial encounter (principal); W18.30XA Fall on same level, unspecified, initial encounter
CPT/HCPCS: 73502; 99283

== ENCOUNTER 2021-09-23 07:32 | Emergency (ER) | payer MEDICARE, OTHER, MEDICAID, SELFPAY ==
[2019-03-07 06:08] VITALS: PULSE 70; RESP 18; O2SAT 97
[2019-09-17 00:31] VITALS: BMI 40.8
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
--- NOTE | 2021-09-23 07:37 | DI.RAD.S_ITS ---
PROCEDURE: XR SHOULDER RT MIN 2V INDICATIONS: fall with shoulder pain TECHNIQUE: 3 views of the shoulder were acquired. COMPARISON: [facility], CR, XR SHOULDER LT MIN 2V, 06/01/2021, 20:20. [facility], CR, XR SHOULDER RT MIN 2V, 04/22/2018, 12:59. FINDINGS: Bones: No fractures. Widening of acromioclavicular joint consistent with AC sprain. There is no subluxation. No suspicious bony lesions. Moderate degenerative joint disease of the glenohumeral joint. Visualized ribs appear intact. Note is made of lower cervical spine fusion. Soft tissues: No suspicious soft tissue calcifications. There is a calcified granuloma in the right lower lobe. IMPRESSION: 1. Grade 1 AC sprain. 2. Moderate degenerative joint disease. Dictated by: Lee Schwartz M.D. on 09/23/2021 at 7:22 Approved by: Lee Schwartz M.D. on 09/23/2021 at 7:31
--- NOTE | 2021-09-23 07:37 | DI.RAD.S_ITS ---
PROCEDURE: XR RIBS RT MIN 3V W CXR 1V INDICATIONS: fall with posterior rib pain TECHNIQUE: 2 views of the right ribs were acquired, along with a single view chest. COMPARISON: [facility], , CHEST 1 VIEW, 04/04/2013, 10:54. FINDINGS: Surgical changes and devices: None. Bones and chest wall: Suspect nondisplaced right 6th rib fracture. No suspicious bony lesions. Overlying soft tissues appear unremarkable. Lungs and pleura: No pleural effusions or pneumothorax. There is a calcified granuloma in the right lower lobe. Mediastinum: Mediastinal contours appear normal. Heart size is normal. IMPRESSION: Possible nondisplaced right 6th rib fracture. Dictated by: Lee Schwartz M.D. on 09/23/2021 at 7:31 Approved by: Lee Schwartz M.D. on 09/23/2021 at 7:37
[2021-09-23 07:38] VITALS: BP 136/75; PULSE 95; RESP 18; TEMP 36.8; O2SAT 98
[2021-09-23] MEDS: HYDROCODONE/ACET 5/325 TABLET 2 TAB PO (09:03)
[2021-09-23 09:15] VITALS: BP 125/69; PULSE 73; RESP 12; O2SAT 96
== END 2021-09-23 09:16 | disposition home or self-care (01) ==
PROVIDERS: Emergency Provider Emergency Medicine; PCP Physician Assistant Medical
DX: S43.51XA Sprain of right acromioclavicular joint, initial encounter (principal); S22.31XA Fracture of one rib, right side, initial encounter for closed fracture; W18.30XA Fall on same level, unspecified, initial encounter
CPT/HCPCS: 71101; 73030; 99283

== ENCOUNTER 2021-10-08 12:11 | Emergency (ER) | payer MEDICARE, OTHER, MEDICAID, SELFPAY ==
[2019-03-07 06:08] VITALS: PULSE 70; RESP 18; O2SAT 97
[2019-09-17 00:31] VITALS: BMI 40.8
[2021-10-08 12:21] VITALS: BP 110/63; PULSE 79; RESP 16; TEMP 37; O2SAT 98; BMI 33.8
--- NOTE | 2021-10-08 12:43 | DI.RAD.S_ITS ---
PROCEDURE: XR TIBIA FUBULA RT 2V INDICATIONS: fall pain TECHNIQUE: 2 views of the tibia and fibula were acquired. COMPARISON: None. FINDINGS: Bones: No fractures or dislocations. No suspicious bony lesions. Total knee arthroplasty in good position. Soft tissues: No suspicious soft tissue calcifications or masses. IMPRESSION: No acute findings. No fracture. Approved by: Jose Manuel Rowan M.D. on 10/08/2021 at 12:15
--- NOTE | 2021-10-08 12:43 | DI.CT.S_ITS ---
PROCEDURE: CT CERVICAL SPINE WO CON INDICATIONS: fall and dizzy TECHNIQUE: Noncontrast 3 mm thick sections acquired from the skull base to the T4 level. Sagittal and coronal reformats were then constructed. For radiation dose reduction, the following was used: automated exposure control, adjustment of mA and/or kV according to patient size. COMPARISON: [facility], CT, CT CERVICAL SPINE WO CON, 12/12/2018, 13:46. FINDINGS: Image quality: Excellent. Bones: Well-healed C3-4, C4-5, C5-6 and C6-7 discectomy and fusion with good graft incorporation and well-positioned revised anterior hardware, there is now plate and screw instrumentation anterior to C3-4 and C6-7. No evidence of hardware failure or loosening. No fracture or traumatic malalignment throughout the exam. Mild anterior listhesis at C2-3. Mild central stenosis at C5-6 and C6-7. Soft tissues: Prevertebral soft tissues are normal in thickness. No paravertebral hematomas. No apical pneumothoraces. IMPRESSION: Cervical spine interbody fusion from C3-4 through C6-7 without evidence of fracture or traumatic malalignment. Approved by: Jose Manuel Rowan M.D. on 10/08/2021 at 12:22
--- NOTE | 2021-10-08 12:43 | DI.CT.S_ITS ---
PROCEDURE: CT HEAD/BRAIN WO CON INDICATIONS: dizzy and fall TECHNIQUE: Noncontrast 5 mm thick angled axial sections acquired from the foramen magnum to the vertex, with coronal and sagittal reformats. For radiation dose reduction, the following was used: automated exposure control, adjustment of mA and/or kV according to patient size. COMPARISON: [facility], CT, CT HEAD/BRAIN WO CON, 01/17/2021, 18:14. FINDINGS: Image quality: Excellent. CSF spaces: Basal cisterns are patent. No extra-axial fluid collections. Ventricles are normal in size and shape. Brain: No midline shift. No intracranial masses or hemorrhage. Mireles-white matter interface is normal. Moderate cerebral and cerebellar volume loss with multifocal white matter chronic ischemic change noted. Moderate calcified atherosclerotic plaque noted involving the cavernous portions of both internal carotid arteries. Skull and face: Calvarium and visualized facial bones are intact, without suspicious lesions. Incidental mild hyperostosis frontalis interna noted. Sinuses: Visualized sinuses and mastoids are clear. IMPRESSION: Mild atrophy and chronic ischemic change without acute hemorrhage or mass effect Approved by: Jose Manuel Rowan M.D. on 10/08/2021 at 12:17
--- NOTE | 2021-10-08 12:44 | DI.RAD.S_ITS ---
PROCEDURE: XR CHEST 1V INDICATIONS: dizzy TECHNIQUE: One view of the chest was acquired. COMPARISON: [facility], CR, XR CHEST 2V, 11/15/2017, 23:51. FINDINGS: Surgical changes and devices: Lower cervical spine instrumentation. Surgical clips in the thyroid bed. Lungs and pleura: Lungs are clear. No pleural effusions or pneumothorax. Calcified granuloma noted in the right lung base Mediastinum: Mediastinal contours appear normal. Heart size is normal. Bones and chest wall: No suspicious bony lesions. Overlying soft tissues appear unremarkable. IMPRESSION: No acute cardiopulmonary findings Approved by: Jose Manuel Rowan M.D. on 10/08/2021 at 12:14
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
[2021-10-08 13:04] LABS: Add Manual Diff / Slide Review NO; Basophils Absolute Auto 100 /uL (0-100); Basophils Percent Auto 0.9 % (0-2); Eosinophils Absolute Auto 200 /uL (0-450); Eosinophils Percent Auto 3.1 % (2-4); Hematocrit 39.1 % (36-46); Hemoglobin 13.4 g/dL (12.0-16.0); Lymphocytes Absolute Auto 1700 /uL (1100-4500); Lymphocytes Percent Auto 24.5 % (25-40); Mean Corpuscular HGB Conc 34.3 % (30-36); Mean Corpuscular Hemoglobin 31.3 PG (26-34); Mean Corpuscular Volume 91.2 fL (80-100); Monocytes Absolute Auto 400 /uL (0-900); Monocytes Percent Auto 6.4 % (3-14); Neutrophils Absolute Auto 4500 /uL (1500-7000); Neutrophils Percent Auto 65.1 % (50-75); Platelet Count 171 X10^3/uL (150-400); Red Blood Cell Count 4.29 X10^6/uL (4.0-5.2); Red Cell Distribution Width 13.7 % (11.6-14.8); White Blood Cell Count 6.9 X10^3/uL (4.5-11.0)
[2021-10-08 13:13] LABS: Alanine Aminotransferase 31 IU/L (<35); Albumin Globulin Ratio 1.5 (1.0-2.8); Alkaline Phosphatase 127 U/L (38-126); Aspartate Aminotransferase 35 IU/L (14-36); BUN Creatinine Ratio 14.9 (6-22); Bilirubin Total 0.4 mg/dL (0.2-1.3); Blood Urea Nitrogen 15 mg/dL (7-17); Calcium 8.8 mg/dL (8.4-10.2); Carbon Dioxide 32 mmol/L (22-32); Chloride 101 mmol/L (98-107); Creatine Kinase 37 U/L (30-135); Estimated Glomerular Filt Rate > 60 mL/min (>60); Globulin 2.7 g/dL (1.7-4.1); Glucose 103 mg/dL (80-110); HEMOLYSIS < 15 (0-50); Lipase 41 U/L (23-300); Potassium 3.3 mmol/L (3.4-5.1); Sodium 138 mmol/L (137-145); Total Protein 6.7 g/dL (6.3-8.2)
[2021-10-08 13:24] LABS: Troponin I < 0.012 ng/mL (0.01-0.034)
[2021-10-08] MEDS: SODIUM CHLORIDE 0.9% 1,000 ML 1000 ML IV (13:58)
[2021-10-08] MEDS: MECLIZINE HCL 12.5 MG TABLET 25 MG PO (14:03)
--- NOTE | 2021-10-08 15:12 | PC.NURSE ---
Assisted pt to ambulate around department, denied dizziness, reported some pain in lower extremity, gait slow but steady.
[2021-10-08 15:43] VITALS: BP 121/58; PULSE 63; RESP 16; O2SAT 99
== END 2021-10-08 15:45 | disposition home or self-care (01) ==
PROVIDERS: Emergency Provider Emergency Medicine; PCP Physician Assistant Medical
DX: R42 Dizziness and giddiness (principal); M79.604 Pain in right leg; W01.0XXA Fall on same level from slipping, tripping and stumbling without subsequent striking against object, initial encounter
CPT/HCPCS: 36415; 70450; 71045; 72125; 73590; 80053; 82550; 83690; 84484; 85025; 93005; 99284

== ENCOUNTER → 2021-11-17 13:07 | Outpatient (CLI) | payer MEDICARE, OTHER, MEDICAID, SELFPAY ==
[2019-03-07 06:08] VITALS: PULSE 70; RESP 18; O2SAT 97
[2019-09-17 00:31] VITALS: BMI 40.8
--- NOTE | 2021-11-17 | DI.RAD.S_ITS ---
PROCEDURE: FL UPPER GI SERIES INDICATIONS: Epigastric pain s/p bariatric surgery COMPARISON: None. FINDINGS: KUB: Preprocedural employee service officer film demonstrates a normal bowel gas pattern. No suspicious abdominal calcifications. Visualized solid organ contours appear normal. Bony structures appear unremarkable. Esophagus: Esophageal mucosa is normal on air-contrast views. On single-contrast views, there are mild tertiary contraction waves in the distal esophagus compatible with mild esophageal dysmotility. No strictures, extrinsic mass effects, or diverticula. No hiatal hernia. Gastroesophageal reflux occurred without provocative maneuvers. There is normal transit of a calibrated barium tablet through the esophagus. Stomach: Postsurgical changes compatible with Candace-en-Y gastric bypass procedure. Gastric pouch is normal contour. The gastrojejunal anastomosis is widely patent with rapid passage of 13 millimeter calibrated barium tablet through the anastomosis. No mucosal masses or ulcers. No extravasation of contrast material. Jejunal folds are normal in thickness. IMPRESSION: 1. Expected postsurgical change for Candace-en-Y gastric bypass. 2. Mild distal esophageal dysmotility. 3. Gastroesophageal reflux. Dictated by: June Montes De Oca MD, PhD on 11/17/2021 at 14:28 Approved by: June Montes De Oca MD, PhD on 11/17/2021 at 14:31
== END ==
PROVIDERS: PCP Physician Assistant Medical; Referring Provider Physician Assistant; Visit Provider Physician Assistant
DX: R10.13 Epigastric pain (principal); K22.4 Dyskinesia of esophagus; K21.9 Gastro-esophageal reflux disease without esophagitis; Z98.84 Bariatric surgery status
CPT/HCPCS: 74240

== ENCOUNTER → 2021-11-22 13:07 | Outpatient (CLI) | payer MEDICARE, OTHER, MEDICAID, SELFPAY ==
[2019-03-07 06:08] VITALS: PULSE 70; RESP 18; O2SAT 97
[2019-09-17 00:31] VITALS: BMI 40.8
--- NOTE | 2021-11-22 13:08 | DI.US.S_ITS ---
PROCEDURE: US ABDOMEN LIMITED INDICATIONS: EPIGASTRIC PAIN WITH HISTORY OF BARIATRIC SURGERY TECHNIQUE: Real-time scanning was performed of the abdominal and retroperitoneal organs, with image documentation. COMPARISON: None. FINDINGS: Liver: Liver is normal in size and homogeneous in echotexture. Gallbladder: No stones. Wall thickness is normal measuring 1.9 mm. Biliary ducts: Intrahepatic bile ducts are non-dilated. Extrahepatic bile duct caliber measures 6 mm. Normal is 6-7 mm or less in diameter, or 10 mm or less post-cholecystectomy. IMPRESSION: Unremarkable exam. Dictated by: Vandana Arreaga M.D. on 11/22/2021 at 17:31 Approved by: Vandana Arreaga M.D. on 11/22/2021 at 17:32
== END ==
PROVIDERS: PCP Physician Assistant Medical; Referring Provider Physician Assistant; Visit Provider Physician Assistant
DX: R10.13 Epigastric pain (principal); Z98.84 Bariatric surgery status
CPT/HCPCS: 76705

== ENCOUNTER 2022-01-15 23:06 | Emergency (ER) | payer MEDICARE, OTHER, MEDICAID, SELFPAY ==
[2019-03-07 06:08] VITALS: PULSE 70; RESP 18; O2SAT 97
[2019-09-17 00:31] VITALS: BMI 40.8
[2022-01-15 23:10] VITALS: BP 112/60; PULSE 96; RESP 18; TEMP 36.5; O2SAT 98
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
[2022-01-16] MEDS: diazePAM 5 MG TABLET PO (03:50)
[2022-01-16] MEDS: ACETAMINOPHEN 325 MG TABLET 975 MG PO (03:50)
== END 2022-01-16 03:58 | disposition home or self-care (01) ==
PROVIDERS: Emergency Provider Emergency Medicine; PCP Physician Assistant Medical
DX: S16.1XXA Strain of muscle, fascia and tendon at neck level, initial encounter (principal); Y93.89 Activity, other specified
CPT/HCPCS: 99283